=== PATIENT | female | born 1945 | race Caucasian/White ===

== ENCOUNTER 2019-07-21 18:28 | Inpatient (IN) | payer MEDICARE, BC ==
--- NOTE | 2019-07-21 19:57 | PDOC.FPRHP ---
- History of Present Illness Chief Complaint: sinus congestion, weakness History of Present Illness: 73 yo comes in w/ c/c of feeling weak and 2 weeks sinus congesiton. Pt been having 2 week history of nasal congestion and sinus pressure. Reports having some SOB. Denies productive or dry cough. Pt states having post nasal drip in her throat. Denies any chest pain. Pt reports swelling in feet. Pt always sleeps with head elevated. Pt reports getting more tired over the last 2 weeks. Son reports when she came to visit him a week ago she was very sleepy and more tired than usual. Pt dx with HTN at age 18 but states at recent physical they took her off her BP medication 10 years ago. ED Course: EKG: A-Fib w/ RVR CXR: Cardiomegaly w/ Diffuse Lower Lung Infiltrates - Allergies/Adverse Reactions Allergies Allergy/AdvReac Type Severity Reaction Status Date / Time Penicillins Allergy Verified 07/21/19 21:45 - Home Medications Medication Instructions Recorded Confirmed Type Multivit-Min36/Iron/Folic Acid 1 tablet PO DAILY PRN 07/21/19 07/21/19 History [Geritol Complete] Mv-Min/Iron/Folic/Calcium/Vitk 1 each PO DAILY 07/21/19 07/21/19 History [Women's Daily Formula Tablet] Comments: Not on any medications - History PMHx: HTN PSHx: Appendectomy FHx: Sister- Cancer, Mother- Enlarged heart, Father- Lung cancer, smoker Social: Occasional beer drinker, Smokes 6-10 cigarettes a day. Smoking since age 32. Denies any illicit drug use. - Review of Systems General: reports: weight/appetite/sleep changes, fatigue. denies: fever/chills Eyes: denies: eye pain, vision changes ENT: reports: nasal congestion, rhinorrhea Respiratory: reports: congestion, shortness of breath, exercise intolerance. denies: cough Cardiovascular: reports: edema. denies: chest pain, palpitation, paroxysmal nocturnal dyspnea, orthopnea Gastrointestinal: reports: nausea. denies: vomiting, diarrhea, constipation, abdominal pain, GI bleeding Genitourinary: denies: incontinence, dysuria, polyuria Skin: denies: rashes, lesions Musculoskeletal: reports: arthritis/arthralgias. denies: pain, tenderness, stiffness, swelling Neurological: reports: weakness, other (headaches past 2 weeks over left eye, sinus pressure. Reports ringing ears. Reports feeling pressure in ears.). denies: numbness Psychological: denies: anxiety, depression - Vital signs BP: [88/73] HR: [129] RR: [] Tmax: [98.1] Pox: []% on [] Wt: [] - Physical Exam Constitutional: NAD, awake, alert and oriented, well developed HEENT: normocephalic and atraumatic, PERRLA, EOMI, conjunctiva clear, no scleral icterus, grossly normal vision, normal nasal mucosa, MMM, oropharynx clear, other (Poor dentition. Poor hearing.) Neck: supple, FROM, trachea midline, no LAD, other (JVD appreciated to the Angle of the Mandible) Chest: no-tender to palpation, no lesions Heart: normal S1/S2, no murmurs/rubs/gallops, pulses present, other ( Irregularly Irregular Rhythm w/ +1 Pitting Edema to the Knee, Bilaterally) Lungs: CTAB, no respiratory distress, good air movement, no rales/rhonchi, no wheezing, no retractions Abdomen: soft, non-tender, bowel sounds present, no masses/distention, no hernias Musculoskeletal: normal structure, ROM grossly normal Neurological: no focal deficit Skin: no rash/lesions, no jaundice Heme/Lymphatic: no unusual bruising or bleeding, no purpura Psychiatric: normal mood and affect, good judgment and insight, intact recent and remote memory FMR H&P: Results - Labs Result Diagrams: 07/27/19 04:44 07/27/19 10:18 - EKG Interpretation EKG: A-Fib w/ RVR - Radiology Interpretation Chest x-ray Status: image reviewed by me (Cardiomegaly w/ bilateral infiltrates in the lower lung simon), report reviewed by me FMR H&P: A/P - Problem List (1) A-fib Current Visit: Yes Status: Acute Code(s): I48.91 - UNSPECIFIED ATRIAL FIBRILLATION Qualifiers: Atrial fibrillation type: unspecified Qualified Code(s): I48.91 - Unspecified atrial fibrillation (2) CHF (congestive heart failure) Current Visit: Yes Status: Acute Code(s): I50.9 - HEART FAILURE, UNSPECIFIED Qualifiers: Heart failure type: systolic Heart failure chronicity: unspecified Qualified Code(s): I50.20 - Unspecified systolic (congestive) heart failure (3) HTN (hypertension) Current Visit: Yes Status: Acute Code(s): I10 - ESSENTIAL (PRIMARY) HYPERTENSION - Plan 1. New-Onset A-Fib w/ RVR -Admit to [facility] for medical management -Currently rate controlled w/ Cardizem drip @ 10 ml/hr, Nursing to adjust as required -Anticoagulation Lovenox 70 mg SC twice daily -Inciting factor unclear at this point -Echo: Pending -ProCal: Pending -Consult Cardiology in the AM. -Will trend trops. Check FLP, TSH and A1c. 2. New-Onset CHF -HPI and physical exam consistent w/ classic findings of CHF -BNP: 1096 -Echo: Pending -Lasix 20 mg IV x1 3. Sinusitis -2 week hx of sinus pressure and nasal congestion. Possible illness recent cause for problems above -Hx of smoking. Possibly some underlying COPD. -Started on Levaquin 750 mg. Will continue for now. -CXR showed R. pleural effusion, may be due to fluid vs infiltrate. -Procal pending. 4. RAUL vs CKD -Cr 1.22. Unsure of baseline. At this time will hold off on fluids 2/2 to x-ray findings and edema. Will give 20 of lasix and see if it helps with perfusion. -Trend labs. 5. Hx of HTN -Hasn't been on medication for 10 years. -BP: 88/73 on 07/21 -Continue to monitor 6. Tobacco Abuse Code: Full Diet: NPO after Midnight Activity: Ambulate w/ Assist DVT PPx: SCDs & Therapeutic Lovenox Dispo: Admit to IMCU for medication optimization and rate control. Expected LOS > 48H. FMR H&P: Upper Level - Pertinent history I was present with the technology internship. I scribed the above HPI. I agree with the above document. Edits made above as needed. - Pertinent findings Pt is resting in bed. Does not appear to be in acute distress. HR range from 110's to 130s. Irregular. No murmurs noted Resp: Lungs CTA-B, no crackles or wheezes. Ext: +1 pitting edema in LE bilaterally. - Plan Date/Time: 07/21/191954 I, Mohamud Wray, have evaluated this patient and agree with findings/plan as outlined by technology internship resident. Pertinent changes/additions are listed here. At this time we will admit pt for new onset A.fib w/ RVR. She is currently on Dilt drip and will continue to adjust as needed. We will order echo, trend trops and consult cardiology in the AM. Pt BP a little low ranging 80/60. Will admit to IMCU for close monitoring. CXR showed some fluid overload with LE edema. Will give 20 mg lasix IV and see if helps with pressure support. Pt also has 2 week hx of sinusitis. Will tx with levaquin as pt is a smoker as well. Will tx sx's as needed with loratidine and mucinex. Started on therapeutic lovenox. See above for detailed plan. I made edits above as needed. Addendum - Attending - Attending Attestation Date/Time: 07/21/192011 I personally evaluated the patient and discussed the management with Dr. Irizarry and Dr. Wray I agree with the History, Examination, Assessment and Plan documented above with any addition or exceptions noted below. Place on tele for monitoring. Cards in AM. Continue current treatment. Monitor closely. Trend labs. Sharita
[2019-07-21 20:45] LABS: Troponin I 0.076 ng/mL (< 0.028)
[2019-07-21] MEDS ORDERED: Diltiazem HCl 125 MG, Admixture Fee 1 EACH in Sodium Chloride 0.9% 100 ML IVPB SCH (21:15)
[2019-07-21] MEDS ORDERED: Senokot S 8.6-50 MG TAB PO PRN (21:41)
[2019-07-21] MEDS ORDERED: Ondansetron ODT 4 MG TAB PO PRN (21:41)
[2019-07-21] MEDS ORDERED: Diltiazem 125 MG in Sodium Chloride 0.9% 100 ML IVPB SCH (21:41)
[2019-07-21] MEDS ORDERED: Furosemide 20 MG/2 ML VIAL SLOW IVP SCH (21:41)
[2019-07-21] MEDS ORDERED: Loratadine 10 MG TAB PO PRN (21:41)
[2019-07-21 23:11] LABS: Cardiac Risk 3.1 (Less than 4.5)
[2019-07-21 23:16] LABS: Troponin I 0.083 ng/mL (< 0.028)
[2019-07-21 23:30] LABS: Thyroid Stimulating Hormone 1.3234 uIU/mL (0.35-4.94)
[2019-07-22] MEDS ORDERED: Amiodarone 150 MG, Admixture Fee 1 EACH in Dextrose 5% in Water 100 ML IVPB SCH (00:30)
--- NOTE | 2019-07-22 01:11 | PDOC.EVN ---
Event Note - Event Note Event Note: Around 1:00 was called to pt room that she was reporting feeling more weak and that her BP was ranging 70/40. Pt O2 was also down to low 90% on RA. Pt HR was still ranging from low 100's to 120. The dilt GTT had been at a rate of 10. At this time we stopped the dilt GTT and gave a 250cc bolus. HR remained stable from 100's to 110's. Pt O2 sat improved to 95-100% on 2L. As we monitored and bolus was being administered the BP was starting to rise to 80-90/60. At this time we d/c the dilt drip and will start on an amiodarone drip. Attending NOTE: Agree with documentation above. MAP improved off CCB drip and supplemental IVFs. HR responded as well. Will hold drip. Restart amiodarone if needed to treat RVR due to less affects on blood pressure. ECHO pending. Continue anticoag. Sharita
[2019-07-22 02:08] LABS: Troponin I 0.069 ng/mL (< 0.028)
[2019-07-22] MEDS ORDERED: Sodium Chloride 0.9% 250 ML 250 ML IVPB SCH (03:00)
[2019-07-22] MEDS: Amiodarone 450 MG in Dextrose 5% in Water 250 ML IVPB SCH (03:05)
[2019-07-22] MEDS: Methyl Salicylate/Menthol 85 GM TUBE TOP PRN (03:06)
[2019-07-22 05:55] LABS: #Basophils 0.1 thou/uL (0.0-0.2); #Eosinphils 0.1 thou/uL (0.0-0.7); #Lymphocytes 1.6 thou/uL (1.20-3.40); #Monocytes 0.6 thou/uL (0.11-0.59); #Neutrophils 4.1 thou/uL (1.40-6.50); %Basophils 1.3 % (0.0-1.0); %Eosinophils 1.1 % (0.0-10.0); %Lymphocytes 25.4 % (21.0-51.0); %Monocytes 9.2 % (0.0-10.0); Mean Corpuscular Hemoglobin 31.8 pg (27.0-31.0); Mean Corpuscular Volume 96.5 fL (78.0-98.0); Mean Platelet Volume 7.7 fL (7.4-10.4); Platelet Count 230 thou/uL (130-400); RBC Distribution Width 13.6 % (11.5-14.5); Red Blood Cell (RBC) Count 3.75 mill/uL (4.20-5.40); White Blood Cell (WBC) Count 6.5 thou/uL (4.8-10.8)
[2019-07-22 06:29] LABS: ALT (SGPT) 17 U/L (8-55); AST (SGOT) 21 U/L (5-34); Albumin 3.3 g/dL (3.4-4.8); Alkaline Phosphatase 73 U/L (40-110); Anion Gap 16 mmol/L (10-20); BUN (Urea Nitrogen) 17 mg/dL (9.8-20.1); Bilirubin, Total 0.2 mg/dL (0.2-1.2); Calc. Creatinine Clearance 55 mL/min (70-130); Calcium 8.2 mg/dL (7.8-10.44); Carbon Dioxide 19 mmol/L (23-31); Chloride 103 mmol/L (98-107); Estimated GFR-MDRD 49; Globulin 2.2 g/dL (2.4-3.5); Glucose 95 mg/dL (83-110); Potassium 3.7 mmol/L (3.5-5.1); Protein, Total 5.5 g/dL (6.0-8.3); Sodium 134 mmol/L (136-145)
--- NOTE | 2019-07-22 08:38 | PDOC.FM ---
- Subjective Subjective: Pt remains fatigued today. Since starting cardizem her blood pressures dropped requiring her to be switched to amiodorone. She denied chest pain. Remains with LE edema. - Objective Vital Signs & Weight: Vital Signs (12 hours) Temp Pulse Ox 07/22/19 04:10 98.1 F 07/22/19 00:00 96 07/21/19 23:06 97.3 F L 07/21/19 21:30 95 07/21/19 21:10 98.0 F Weight Weight 73.595 kg Most Recent Monitor Data Heart Rate from ECG 89 NIBP 90/57 NIBP BP-Mean 68 Respiration from ECG 24 SpO2 93 I&O: 07/21/19 07/22/19 07/23/19 06:59 06:59 06:59 Intake Total 819.9 33.3 Output Total 1000 Balance -180.1 33.3 Result Diagrams: 07/22/19 05:39 07/22/19 05:39 Phys Exam - Physical Examination Constitutional: NAD HEENT: PERRLA, moist MMs Neck: no nodes, full ROM Respiratory: no wheezing, no rales, no rhonchi irregular rate and rhythm Gastrointestinal: soft, non-tender, positive bowel sounds Musculoskeletal: pulses present 1+ LE edema Dx/Plan (1) A-fib Code(s): I48.91 - UNSPECIFIED ATRIAL FIBRILLATION Status: Acute (2) CHF (congestive heart failure) Code(s): I50.9 - HEART FAILURE, UNSPECIFIED Status: Acute (3) HTN (hypertension) Code(s): I10 - ESSENTIAL (PRIMARY) HYPERTENSION Status: Acute - Plan Plan: 1. New-Onset A-Fib w/ RVR -Admit to IMCU for medical management -Cardizem discontinued due to low BP's. Switched to amiodorone. -Anticoagulation Lovenox 70 mg SC twice daily -Echo: Pending -ProCal: negative -Consulted Cardiology, appreciate rec's -Will trend trops. Check FLP, TSH and A1c. 2. New-Onset CHF No more lasix at this time as she is not rate controlled. -HPI and physical exam consistent w/ classic findings of CHF -BNP: 1096 -CXR revealed enlarged heart -Echo: Pending 3. Sinusitis -2 week hx of sinus pressure and nasal congestion. Possible illness recent cause for problems above -Hx of smoking. Possibly some underlying COPD. - d/c levequin and start doxycycline. CXR revealed R pleural effusion vs pneumonia. Less likely pneumonia as procal negative but will continue to treat. 4. RAUL vs CKD -Cr 1.22. Unsure of baseline. At this time will hold off on fluids 2/2 to x-ray findings and edema. - Trend labs 5. Hx of HTN -Hasn't been on medication for 10 years. -BP: 88/73 on 07/21 -Continue to monitor 6. Tobacco Abuse Code: Full Diet: NPO after Midnight Activity: Ambulate w/ Assist DVT PPx: SCDs & Therapeutic Lovenox Dispo: Admit to IMCU for medication optimization and rate control. Expected LOS > 48H.
[2019-07-22] MEDS: Enoxaparin Sodium 80 MG/0.8 ML SYRINGE SC SCH ×2 (09:00→21:39)
[2019-07-22] MEDS ORDERED: guaiFENesin/DM ER PO SCH (09:00)
[2019-07-22] MEDS ORDERED: Digoxin 0.5 MG/2 ML AMP SLOW IVP SCH ×3 (09:45→22:00)
[2019-07-22] MEDS ORDERED: Doxycycline 100 MG CAP PO SCH ×2 (10:33→10:45)
--- NOTE | 2019-07-22 11:47 | PRG ---
DATE OF SERVICE: 07/22/2019 Ms. Augustin is a pleasant 73-year-old white female with a history of heavy smoking and hypertension. She presented with new onset heart failure and atrial fibrillation. We already consulted Cardiology. She was started initially on a diltiazem drip, but this dropped her blood pressure. She was switched to an amiodarone drip, and Cardiology has since added digoxin. We will await the recommendations of Cardiology. Her initial troponins are indeterminate in the range of 0.08 to 0.07. Job ID: [id number]
[2019-07-22] MEDS ORDERED: Metoprolol Tartrate 5 MG/5 ML VIAL ONE (12:04)
[2019-07-22] MEDS ORDERED: Metoprolol Tartrate 5 MG/5 ML VIAL IVP PRN (12:27)
--- NOTE | 2019-07-22 13:43 | CON ---
DATE OF CONSULTATION: 07/22/2019 INDICATION FOR CONSULTATION: A 73-year-old female with no previous cardiac history, who presented with atrial fibrillation with rapid ventricular response and congestive heart failure with lower extremity edema and shortness of breath. HISTORY OF PRESENT ILLNESS: This very unfortunate 73-year-old female, who has not been feeling well for the last couple weeks, thought she had a sinus infection, but noticed that she was having more and more difficulty breathing. She also knows she was having lower extremity edema. She presented to the emergency room, was noted to be in atrial fibrillation with rapid ventricular response. Heart rate was more than 150 beats per minute and since that time, she had difficulty controlling the heart rate. She actually has been given the IV diltiazem and had a decrease in the blood pressure. She has now been placed on IV amiodarone and also I believe I have given her one dose of digoxin, also she was began on one dose of Lopressor. The heart rate now is around low 100s. Earlier today, after being on the amiodarone and digoxin, she was still having heart rates in the 130s. She denied any chest pain throughout any of this, but mainly complains of shortness of breath and edema. PAST MEDICAL HISTORY: Significant for a relatively good health. She has had no significant operations or illnesses. She did have some problems with some sinus infections in the past. She has had an appendectomy and she has had a history of hypertension. FAMILY HISTORY: Her brother had myocardial infarctions in his 40s and also smoked. SOCIAL HISTORY: She also smokes. She says she stopped about eight years ago. Otherwise, she smoked for about 40 years up to half a pack a day. ALLERGIES: SHE IS ALLERGIC TO PENICILLIN. MEDICATIONS: Prior to admission included multivitamins. REVIEW OF SYSTEMS: HEENT: She denied any HEENT complaints. She does wear glasses. PULMONARY: She had no significant complaints of shortness of breath or dyspnea until just recently. GI: No nausea, vomiting, or diarrhea. : No complaints. No dysuria, polyuria, or hematuria. MUSCULOSKELETAL: She did complain of some claudication. She says she can walk about a block and her legs become fatigued. NEUROLOGIC: No history of seizures or syncope. She did have some lightheadedness recently associated with her atrial fibrillation with rapid ventricular response. PHYSICAL EXAMINATION: GENERAL: Reveals a well-developed, well-nourished, elderly female, who is somewhat overweight, but otherwise very pleasant. She is alert and not having any significant complaints at this time. VITAL SIGNS: Show a blood pressure 109/72, heart rate is in the one teens to 120s, respiratory rate is about 20 per minute, and O2 saturation 96% to 99%. HEENT: Shows head to be normocephalic and atraumatic. She has a significant bilateral carotid bruits noted. Carotid pulses are somewhat decreased with the upstroke. CHEST: Actually, I do not hear any significant rales, rhonchi, or wheezing. She did have some very mild rales in the bases, otherwise no significant abnormalities were noted. CARDIOVASCULAR: She has a rapid irregular heart rate. I do not hear any gross murmurs at this time. ABDOMEN: Soft and nontender. Positive bowel sounds are present. EXTREMITIES: Show 2+ lower extremity edema. I cannot palpate popliteal or pedal pulses. The patient is presently sitting up in the chair. SKIN: Warm and dry. NEUROLOGIC: There were no gross focal motor deficits noted. LABORATORY DATA: Shows a hemoglobin of 12.0, WBC of 6.5, and platelet count was 230,000. Sodium was 134, potassium 3.7, BUN 17, and creatinine 1.07. Her troponin I was originally on admission was 0.76, increased up to 0.083, it is now decreased back down to 0.69. I suspect this is due to the atrial fibrillation with rapid ventricular response. Her LDL was only 65 and she is on no cholesterol medications. Triglyceride was 58. Her TSH was 1.3. EKG shows an atrial fibrillation with decreased R-wave progression in V1 through V3, but no acute ST-segment changes. Some nonspecific changes were noted, but no other significant ST-segment changes were noted on the EKG. IMPRESSION AND PLAN: 1. Elderly female with a long history of tobacco abuse and some history of hypertension in the past, but does not appear to have hypertension at this time, who is now presented with upper respiratory tract infection probably, who has developed atrial fibrillation with rapid ventricular response. Most likely, she developed this two to three weeks ago or even earlier since she noticed the shortness of breath and lower extremity edema. We will continue to control the heart rate. I will obtain an echocardiogram for evaluation of the left atrial size and also the left ventricular systolic function. Since, she has been in atrial fibrillation for quite some time, we will need to anticoagulate her and then proceed with possible cardioversion or ablation as indicated. If we cannot control the heart rate, she may need to undergo further atrioventricular junction ablation and a pacemaker insertion if indicated. 2. Abnormal cardiac enzymes, which most likely indicate a type 2 myocardial infarction due to the demand ischemia associated with the atrial fibrillation. 3. Tobacco abuse. I strongly encouraged her to stop smoking altogether since she has not smoked for the last eight days. Hopefully, she will not resume. 4. Hypertension, which is under excellent control at this time. It may be also due to the hypertension medications she was given. As far as atrial fibrillation is concerned, her TSH was normal. She will need to have further evaluation. Once we evaluate the echocardiogram, eventually will need to undergo an echocardiogram or she will need to undergo stress testing or a cardiac catheterization to rule out evidence of some underlying coronary artery disease. 5. Bilateral carotid bruits. These sounds pretty significant. She will need to undergo a carotid Doppler evaluation to determine whether or not she has severe stenosis. 6. Peripheral vascular disease. I cannot palpate pedal pulses. She does have evidence by history and also by examination of peripheral vascular disease with claudication. I can evaluate this obviously as an outpatient. At this time, the most important objective is to control the heart rate. She is on the IV amiodarone as well, has been given IV digoxin. We will continue to load her with digoxin to control the heart rate. We will also give a low dose of beta ajay to see if this will also improve the heart rate and then, further recommendations will depend on the results of the echocardiogram. Job ID: [id number]
[2019-07-22] MEDS ORDERED: Furosemide 20 MG/2 ML VIAL SLOW IVP SCH (14:00)
--- NOTE | 2019-07-22 16:35 | CON ---
DATE OF CONSULTATION: 07/22/2019 SERVICE: Pulmonary Medicine. REASON FOR CONSULTATION: [facility] patient. HISTORY OF PRESENT ILLNESS: The patient is a very pleasant 73-year-old white female with past medical history significant for essentially nothing. She was in her usual state of health until about 2 weeks ago. She started having increasing work of breathing and overwhelming fatigue. She started having increasing nasal congestion in the face and presented to her primary care physician. This was primarily because of the head congestion. That being said, when she got there, her oxygen saturations were marginal, and her heart rate was fast and irregular. She was subsequently transitioned to the emergency department. She was discovered to be in atrial fibrillation with rapid rate. She has not seen a physician in over 10 years. She did not have any fevers, chills, cough, sputum production, nausea, vomiting, or diarrhea. She had a little bit of constipation. She did not have any dysuria, abdominal discomfort, hot red or swollen joints, or arthralgias. She did notice increasing lower extremity swelling. PAST MEDICAL HISTORY: 1. Atrial fibrillation, new onset. 2. Hypertension. PAST SURGICAL HISTORY: Appendectomy. FAMILY HISTORY: Noncontributory. SOCIAL HISTORY: She drinks beer from time to time. She smokes half a pack on a daily basis and has a greater than 30 pack-year history of smoking. She denies any street drugs. She has no exposure to chemicals, dust, asbestos, or tuberculosis. ALLERGIES: PENICILLIN. MEDICATIONS: List of her inpatient medications was reviewed. No specific updates were made at this time. REVIEW OF SYSTEMS: General; head, ears, eyes, nose, throat; cardiovascular; respiratory; GI; ; musculoskeletal; neurologic; and skin are negative except as mentioned in the HPI. PHYSICAL EXAMINATION: VITAL SIGNS: Afebrile, pulse 107, blood pressure 91/69, respirations 20, and saturation 93% currently on room air. GENERAL: The patient is awake and alert, in no apparent distress. LUNGS: Excellent air entry. No prolonged expiratory phase or wheezing is appreciated. HEART: Normal rate and regular. ABDOMEN: Soft, nontender, and nondistended. Bowel sounds are positive. MUSCULOSKELETAL: No cyanosis or clubbing. There is 2+ pitting in the bilateral lower extremities. NEUROLOGIC: Grossly nonfocal. LABORATORY DATA: WBC 6.5, hemoglobin 12.0, platelets 230,000. Creatinine 1.09, improving. We have no baseline for her. Liver function studies are unremarkable. Troponin is downtrending. Procalcitonin is negative, TSH is normal. IMAGING: Chest x-ray demonstrates no acute cardiopulmonary abnormality. ASSESSMENT: 1. Acute hypoxic respiratory failure, resolved. 2. Atrial fibrillation with a rapid rate, currently rate controlled. 3. Right-sided pleural effusion. 4. Acute on chronic heart failure, suspect diastolic, echo pending. DISCUSSION AND PLAN: At this point, the patient is stable for transition out of the ICU to the telemetry unit. We can back off on diuretics to once daily and give an additional dose in the afternoon based on response. When she leaves the ICU, she will have no further requirements for inpatient Pulmonary or Critical Care opinion, and I will sign off. Please call with additional questions or concerns through time. 70 minutes have been devoted to this patient in various activities. I personally reviewed all imaging studies and laboratory data noted within this document. For fifty percent of this time, I was interacting with the patient at the bedside or coordinating care with the care team. For the remainder of the time I was immediately available to the patient in the hospital unit. Job ID: [id number] MTDD
--- NOTE | 2019-07-22 16:48 | ULT ---
BILATERAL CAROTID DUPLEX ULTRASOUND: HISTORY: Bilateral carotid bruits TECHNIQUE: Grayscale, color-flow and spectral Doppler ultrasound imaging of the extracranial carotid artery syst ems was performed bilaterally. FINDINGS: There is plaque formation bilaterally. The peak systolic velocity in the right ICA measures 194 cm/s with an end-diastolic velocity of 47 cm /s and a systolic ratio of 1.97. The peak systolic velocity in the left ICA measures 49 cm/s with an end-diastolic velocity of 11 cm/s and a systolic ratio of 0.78. Flow in both vertebral arteries remains antegrade. IMPRESSION: Moderate (50-69%) stenosis of the right ICA
[2019-07-22] MEDS: Doxycycline 100 MG CAP PO SCH (21:39)
[2019-07-23] MEDS: Amiodarone 450 MG in Dextrose 5% in Water 250 ML IVPB SCH (02:32)
--- NOTE | 2019-07-23 05:47 | PDOC.FM ---
- Subjective Subjective: Pt has continued edema. Denies SOB. Her pressures dropped over night so amiodarone d/c. She continued with dig IV. Pressures remained stable after amio d/c. - Objective Vital Signs & Weight: Vital Signs (12 hours) Temp Pulse Pulse Ox 07/23/19 04:12 96 07/23/19 03:56 97.0 F L 07/22/19 23:39 97.3 F L 07/22/19 21:39 100 07/22/19 20:00 94 L 07/22/19 19:55 98.2 F 07/22/19 18:20 129 H Weight Weight 73.595 kg Most Recent Monitor Data Heart Rate from ECG 75 NIBP 83/56 NIBP BP-Mean 65 Respiration from ECG 22 SpO2 89 I&O: 07/21/19 07/22/19 07/23/19 06:59 06:59 06:59 Intake Total 819.9 1153.3 Output Total 1000 1400 Balance -180.1 -246.7 Result Diagrams: 07/23/19 06:00 07/23/19 06:01 Phys Exam - Physical Examination Constitutional: NAD Respiratory: no wheezing, no rhonchi RLL rales Cardiovascular: no significant murmur, no rub Irregular rhythm, regular rate Gastrointestinal: soft, non-tender, no distention 1+ pitting edema Neurological: non-focal, moves all 4 limbs Dx/Plan (1) A-fib Code(s): I48.91 - UNSPECIFIED ATRIAL FIBRILLATION Status: Acute (2) CHF (congestive heart failure) Code(s): I50.9 - HEART FAILURE, UNSPECIFIED Status: Acute (3) HTN (hypertension) Code(s): I10 - ESSENTIAL (PRIMARY) HYPERTENSION Status: Acute (4) RAUL (acute kidney injury) Code(s): N17.9 - ACUTE KIDNEY FAILURE, UNSPECIFIED Status: Acute (5) Chronic kidney disease Code(s): N18.9 - CHRONIC KIDNEY DISEASE, UNSPECIFIED Status: Acute (6) Tobacco abuse Code(s): Z72.0 - TOBACCO USE Status: Acute - Plan Plan: 1. New-Onset A-Fib w/ RVR - Pt remains in the IMCU. She initially was started on cardizem but due to low blood pressures she was switched to amiodarone which was stopped overnight due to low BP's. Yesterday Dr. Quinones loaded pt with digoxin on 07/22/19. Echo revealed restrictive filling pattern w/ an EF of 15-20%. At this time pt is rate controlled but BP's are low. She will remain IMCU at this time as bp's need to be monitored as she is duiresed of fluids. She will not go for a cath until her heart failure is better controlled. -Anticoagulation Lovenox 70 mg SC twice daily -ProCal: negative -Consulted Cardiology, appreciate rec's 2. New-Onset CHF Lasix daily per Dr. Hills; appreciate rec's Echo revealed EF 15-20% -HPI and physical exam consistent w/ classic findings of CHF -BNP: 1096 3. Sinusitis -2 week hx of sinus pressure and nasal congestion. Possible illness recent cause for problems above -Hx of smoking. Possibly some underlying COPD. - d/c levequin and start doxycycline. CXR revealed R pleural effusion vs pneumonia. Less likely pneumonia as procal negative but will continue to treat. 4. RAUL vs CKD -Cr 1.22 --> 1.17. Unsure of baseline. At this time will hold off on fluids 2/2 to x-ray findings and edema. - Trend labs 5. Hx of HTN -Hasn't been on medication for 10 years. Remains hypotensive -Continue to monitor 6. Tobacco Abuse 7. R ICA Stenosis - started statin therapy; consider aspirin 81 mg Code: Full Diet: NPO after Midnight Activity: Ambulate w/ Assist DVT PPx: SCDs & Therapeutic Lovenox Dispo: Admit to IMCU for medication optimization and rate control. Expected LOS > 48H.
[2019-07-23] MEDS ORDERED: Furosemide 20 MG/2 ML VIAL SLOW IVP SCH (06:00)
[2019-07-23 06:32] LABS: #Basophils 0.1 thou/uL (0.0-0.2); #Eosinphils 0.1 thou/uL (0.0-0.7); #Lymphocytes 1.7 thou/uL (1.20-3.40); #Monocytes 0.6 thou/uL (0.11-0.59); #Neutrophils 4.4 thou/uL (1.40-6.50); %Basophils 1.6 % (0.0-1.0); %Neutrophils 63.3 % (42.0-75.0); Hemoglobin 13.1 g/dL (12.0-16.0); Mean Corpuscular HGB CONC 32.6 g/dL (32.0-36.0); Mean Corpuscular Hemoglobin 31.6 pg (27.0-31.0); Mean Platelet Volume 7.8 fL (7.4-10.4); Platelet Count 230 thou/uL (130-400); RBC Distribution Width 13.9 % (11.5-14.5); Red Blood Cell (RBC) Count 4.15 mill/uL (4.20-5.40)
[2019-07-23 06:51] LABS: Anion Gap 13 mmol/L (10-20); BUN (Urea Nitrogen) 17 mg/dL (9.8-20.1); Calc. Creatinine Clearance 51 mL/min (70-130); Calcium 8.6 mg/dL (7.8-10.44); Carbon Dioxide 25 mmol/L (23-31); Chloride 104 mmol/L (98-107); Estimated GFR-MDRD 46; Glucose 67 mg/dL (83-110); Potassium 3.6 mmol/L (3.5-5.1); Sodium 138 mmol/L (136-145)
[2019-07-23] MEDS ORDERED: Potassium Chloride 20 MEQ TAB PO SCH (08:00)
[2019-07-23] MEDS: Enoxaparin Sodium 80 MG/0.8 ML SYRINGE SC SCH ×2 (09:15→20:28)
[2019-07-23] MEDS: Doxycycline 100 MG CAP PO SCH ×2 (09:15→20:29)
[2019-07-23] MEDS ORDERED: Furosemide 20 MG/2 ML VIAL ONE (09:21)
[2019-07-23] MEDS ORDERED: Digoxin 0.5 MG/2 ML AMP ONE (09:21)
[2019-07-23] MEDS: Digoxin 0.5 MG/2 ML AMP SLOW IVP SCH (09:23)
[2019-07-23] MEDS ORDERED: Polyethylene Glycol 3350 17 GM Packet PO SCH (10:15)
--- NOTE | 2019-07-23 10:32 | PRG ---
DATE OF SERVICE: 07/23/2019 SERVICE: Pulmonary Medicine. INTERVAL HISTORY: The patient is doing really well from respiratory standpoint. She is breathing comfortably. She is coughing up a little bit of slimy phlegm. Otherwise, there has been no interval change to her condition. She denies any significant chest discomfort. She indicates that her lower extremity swelling has improved. PHYSICAL EXAMINATION: VITAL SIGNS: Afebrile, pulse 96, blood pressure 105/72, respirations 19, and saturation 92%, currently on room air. GENERAL: The patient is awake and alert, in no apparent distress. LUNGS: Very good air entry. There is not much of a prolonged expiratory phase. Crackles are present bilaterally. There is minimal wheezing present, but it is coarser suggestive of large airways. HEART: Normal rate, regular. ABDOMEN: Soft, nontender, and nondistended. Bowel sounds are positive. MUSCULOSKELETAL: No cyanosis or clubbing. There is 2+ pitting in the bilateral lower extremities. NEUROLOGIC: Grossly nonfocal. LABORATORY DATA: WBC 7.0, hemoglobin 13.1, and platelets 230,000. Basic metabolic profile is otherwise unremarkable except for potassium of 3.6 and uptrending creatinine of 1.17. IMAGING STUDIES: Echocardiogram demonstrates 15% to 20% ejection fraction. IVC is dilated. ASSESSMENT: 1. Acute hypoxic respiratory failure, resolved. 2. Atrial fibrillation with rapid ventricular rate, currently rate control. 3. Acute systolic heart failure (EF 10-15%). 4. Right-sided pleural effusion. DISCUSSION AND PLAN: At this point, the patient is doing fairly well from respiratory standpoint. We will give her some ipratropium, but I believe that most of her little wheezes is from fluid overload. Additionally, she does not endorse difficulty breathing, so steroids will not be started. We will continue to diurese her until she returns to euvolemia. I will give her a dose of MiraLAX per her request to prevent constipation while she is here. Dr. Quinones would like to leave her in the ICU until she diuresis without the use of an inotropic agent. We will continue to follow in this location. Job ID: [id number] MTDD
--- NOTE | 2019-07-23 12:10 | PRG ---
DATE OF SERVICE: 07/23/2019 Ms. Augustni is feeling somewhat better this morning. Still in atrial fibrillation with RVR and still short of breath. Her echo did demonstrate reduced ejection fraction and heart failure with an EF of 15% to 20%. I believe we should go ahead and initiate treatment with ACEs and beta blockers pending further recommendations of Cardiology. It is likely she will need a heart catheterization to assess for coronary artery disease. We must use these medications with caution given that she was initially slightly hypotensive. Job ID: [id number]
[2019-07-23] MEDS: Ondansetron PF 4 MG/2 ML Vial IVP PRN ×2 (13:57→21:54)
[2019-07-23] MEDS ORDERED: DOBUTamine 500 mg/250 ml 250 ML IVPB SCH (14:45)
[2019-07-23] MEDS: Furosemide 40 MG/4 ML VIAL SLOW IVP SCH (16:29)
[2019-07-23] MEDS: Atorvastatin Calcium 40 MG TAB PO SCH (20:29)
[2019-07-24] MEDS: Acetaminophen 325 MG TAB PO PRN ×3 (03:26→20:30)
[2019-07-24 05:17] LABS: #Lymphocytes 0.3 thou/uL (1.20-3.40); #Monocytes 0.5 thou/uL (0.11-0.59); #Neutrophils 5.5 thou/uL (1.40-6.50); %Basophils 0.6 % (0.0-1.0); %Eosinophils 0.1 % (0.0-10.0); %Lymphocytes 4.3 % (21.0-51.0); %Monocytes 7.9 % (0.0-10.0); %Neutrophils 87.1 % (42.0-75.0); Hemoglobin 12.6 g/dL (12.0-16.0); Mean Corpuscular HGB CONC 32.5 g/dL (32.0-36.0); Mean Corpuscular Hemoglobin 31.1 pg (27.0-31.0); Mean Corpuscular Volume 95.7 fL (78.0-98.0); Mean Platelet Volume 7.5 fL (7.4-10.4); Platelet Count 205 thou/uL (130-400); RBC Distribution Width 13.7 % (11.5-14.5); Red Blood Cell (RBC) Count 4.05 mill/uL (4.20-5.40); White Blood Cell (WBC) Count 6.3 thou/uL (4.8-10.8)
--- NOTE | 2019-07-24 05:37 | PDOC.FM ---
- Subjective Subjective: Pt remains fatigued today. She denies SOB. She believes her LE edema has improved. - Objective Vital Signs & Weight: Vital Signs (12 hours) Temp Pulse Ox 07/24/19 03:39 98.2 F 07/24/19 00:00 98.6 F 07/23/19 20:00 98.4 F 94 L Weight Weight 70.534 kg Most Recent Monitor Data Heart Rate from ECG 88 NIBP 97/67 NIBP BP-Mean 77 Respiration from ECG 24 SpO2 92 I&O: 07/22/19 07/23/19 07/24/19 06:59 06:59 06:59 Intake Total 819.9 1303.3 880 Output Total 1000 1400 4700 Balance -180.1 -96.7 -3820 Result Diagrams: 07/24/19 05:07 07/24/19 05:07 Dx/Plan (1) A-fib Code(s): I48.91 - UNSPECIFIED ATRIAL FIBRILLATION Status: Acute (2) CHF (congestive heart failure) Code(s): I50.9 - HEART FAILURE, UNSPECIFIED Status: Acute (3) HTN (hypertension) Code(s): I10 - ESSENTIAL (PRIMARY) HYPERTENSION Status: Acute (4) RAUL (acute kidney injury) Code(s): N17.9 - ACUTE KIDNEY FAILURE, UNSPECIFIED Status: Acute (5) Chronic kidney disease Code(s): N18.9 - CHRONIC KIDNEY DISEASE, UNSPECIFIED Status: Acute (6) Tobacco abuse Code(s): Z72.0 - TOBACCO USE Status: Acute - Plan Plan: 1. New-Onset A-Fib w/ RVR - Pt remains in the IMCU on 07/24/19. She initially was started on cardizem but due to low blood pressures she was switched to amiodarone which was stopped due to low BP's. Dr. Quinones loaded pt with digoxin on 07/22/19. Echo revealed restrictive filling pattern w/ an EF of 15-20%. At this time pt is rate controlled but BP's are low, 90's/60's. She will remain IMCU at this time as bp' s need to be monitored as she is diuresed of fluids and may need dobutamine , per Dr. Quinones. She will not go for a cath until her heart failure is better controlled. -Anticoagulation Lovenox 70 mg SC twice daily -ProCal: negative -Consulted Cardiology, appreciate rec's 2. New-Onset CHF Lasix daily per Dr. Hills; appreciate rec's Echo revealed EF 15-20% -HPI and physical exam consistent w/ classic findings of CHF -BNP: 1096 - Statin therapy began as pt likely has ischemic cardiomyopathy 3. Sinusitis -2 week hx of sinus pressure and nasal congestion. Possible illness recent cause for problems above -Hx of smoking. Possibly some underlying COPD. - d/c levequin and start doxycycline. CXR revealed R pleural effusion vs pneumonia. Less likely pneumonia as procal negative but will continue to treat. 4. RAUL vs CKD -Cr 1.22 --> 1.17. Unsure of baseline. At this time will hold off on fluids 2/2 to x-ray findings and edema. - Trend labs 5. Hx of HTN -Hasn't been on medication for 10 years. Remains hypotensive -Continue to monitor 6. Tobacco Abuse 7. R ICA Stenosis - started statin therapy; consider aspirin 81 mg 8. Hypokalemia - replete; replete BMP this afternoon Code: Full Diet: NPO after Midnight Activity: Ambulate w/ Assist DVT PPx: SCDs & Therapeutic Lovenox Dispo: Admit to IMCU for medication optimization and rate control. Expected LOS > 48H. Addendum - Attending - Attending Attestation Date/Time: 07/24/19 3316 I personally evaluated the patient and discussed the management with Dr. Hill. I agree with the History, Examination, Assessment and Plan documented above with any addition or exceptions noted below. Patient doing well and denies concerns this morning. Feeling improved. Her rate is more controlled. Echo shows severely depressed EF. Patient started on Dobutamine by cardiology but not currently infusing. She is diuresing well. Renal function improved. Await further cardiology recs. She is on anticoagulation.
[2019-07-24 05:43] LABS: Anion Gap 16 mmol/L (10-20); BUN (Urea Nitrogen) 12 mg/dL (9.8-20.1); Calc. Creatinine Clearance 65 mL/min (70-130); Calcium 8.3 mg/dL (7.8-10.44); Carbon Dioxide 25 mmol/L (23-31); Chloride 98 mmol/L (98-107); Estimated GFR-MDRD 63; Glucose 72 mg/dL (83-110); Potassium 3.2 mmol/L (3.5-5.1); Sodium 136 mmol/L (136-145)
[2019-07-24] MEDS ORDERED: Ibuprofen 200 MG TAB PO SCH (06:00)
[2019-07-24] MEDS: Furosemide 40 MG/4 ML VIAL SLOW IVP SCH ×2 (06:13→14:51)
[2019-07-24] MEDS: Polyethylene Glycol 3350 17 GM Packet PO SCH (08:47)
[2019-07-24] MEDS: Enoxaparin Sodium 80 MG/0.8 ML SYRINGE SC SCH ×2 (08:47→20:27)
[2019-07-24] MEDS: Doxycycline 100 MG CAP PO SCH ×2 (08:47→20:27)
[2019-07-24] MEDS ORDERED: Digoxin 0.5 MG/2 ML AMP ONE (08:49)
[2019-07-24] MEDS: Digoxin 0.5 MG/2 ML AMP SLOW IVP SCH (08:50)
--- NOTE | 2019-07-24 11:27 | PRG ---
DATE OF SERVICE: 07/24/2019 SUBJECTIVE: A 73-year-old female who appears to be less short of breath and still coughing. Sputum is clear. OBJECTIVE: VITAL SIGNS: Pulse 100, temperature 98, blood pressure 94/79, respiratory rate 18. CHEST: Minimal rhonchi. CARDIAC: Normal S1 and S2. ABDOMEN: No masses. LABORATORY DATA: Unremarkable. ASSESSMENT: Congestive heart failure, atrial fibrillation, chronic obstructive pulmonary disease, bronchitis, tobacco abuse. PLAN: She is on amiodarone drip, supportive care, and empiric antibiotics. We will follow. Job ID: [id number]
[2019-07-24] MEDS ORDERED: Potassium Chloride 20 MEQ in Premix Bag 1 BAG IVPB SCH (13:45)
--- NOTE | 2019-07-24 14:05 | EKG ---
Test Reason : Blood Pressure : / mmHG Vent. Rate : 121 BPM Atrial Rate : 105 BPM P-R Int : 000 ms QRS Dur : 094 ms QT Int : 360 ms P-R-T Axes : 000 063 171 degrees QTc Int : 511 ms Atrial fibrillation with rapid ventricular response Possible Anterior infarct , age undetermined Abnormal ECG Confirmed by GABBI WOOTEN ([id number]), assistant editor REHANA GODOY ([id number]) on 07/24/2019 2:05:11 PM Referred By: Confirmed By:GABBI WOOTEN
[2019-07-24 14:39] LABS: Anion Gap 19 mmol/L (10-20); BUN (Urea Nitrogen) 13 mg/dL (9.8-20.1); Calc. Creatinine Clearance 54 mL/min (70-130); Carbon Dioxide 28 mmol/L (23-31); Chloride 95 mmol/L (98-107); Estimated GFR-MDRD 52; Glucose 76 mg/dL (83-110); Potassium 3.5 mmol/L (3.5-5.1); Sodium 138 mmol/L (136-145)
[2019-07-24] MEDS: Ondansetron PF 4 MG/2 ML Vial IVP PRN (14:51)
[2019-07-24] MEDS: Atorvastatin Calcium 40 MG TAB PO SCH (20:27)
[2019-07-25] MEDS ORDERED: Ibuprofen 200 MG TAB PO SCH (02:00)
[2019-07-25 04:28] LABS: #Lymphocytes 0.3 thou/uL (1.20-3.40); #Monocytes 0.6 thou/uL (0.11-0.59); #Neutrophils 5.8 thou/uL (1.40-6.50); %Basophils 0.2 % (0.0-1.0); %Eosinophils 0.1 % (0.0-10.0); %Lymphocytes 4.9 % (21.0-51.0); %Monocytes 8.4 % (0.0-10.0); %Neutrophils 86.4 % (42.0-75.0); Hemoglobin 13.1 g/dL (12.0-16.0); Mean Corpuscular HGB CONC 32.3 g/dL (32.0-36.0); Mean Corpuscular Hemoglobin 31.1 pg (27.0-31.0); Mean Corpuscular Volume 96.1 fL (78.0-98.0); Mean Platelet Volume 7.3 fL (7.4-10.4); Platelet Count 181 thou/uL (130-400); RBC Distribution Width 13.8 % (11.5-14.5); Red Blood Cell (RBC) Count 4.22 mill/uL (4.20-5.40); White Blood Cell (WBC) Count 6.7 thou/uL (4.8-10.8)
[2019-07-25 04:52] LABS: Anion Gap 11 mmol/L (10-20); BUN (Urea Nitrogen) 9 mg/dL (9.8-20.1); Calc. Creatinine Clearance 72 mL/min (70-130); Calcium 8.3 mg/dL (7.8-10.44); Carbon Dioxide 34 mmol/L (23-31); Chloride 94 mmol/L (98-107); Estimated GFR-MDRD 72; Glucose 86 mg/dL (83-110); Potassium 3.2 mmol/L (3.5-5.1); Sodium 136 mmol/L (136-145)
[2019-07-25 04:53] LABS: Digoxin 1.75 ng/mL (0.8-2.0)
--- NOTE | 2019-07-25 05:41 | PDOC.FM ---
- Subjective Subjective: Pt complains of continued constipation today not alleviated with PO meds. She also has L sided sharp pain radiating behind shoulder blade to L ear. She does not know when this started but she woke with it. - Objective Vital Signs & Weight: Vital Signs (12 hours) Temp Pulse Ox 07/25/19 03:47 98.3 F 07/25/19 00:00 97.6 F 07/24/19 20:00 93 L 07/24/19 19:45 99.0 F Weight Weight 69.853 kg Most Recent Monitor Data Heart Rate from ECG 87 NIBP 119/81 NIBP BP-Mean 93 Respiration from ECG 23 SpO2 93 I&O: 07/23/19 07/24/19 07/25/19 06:59 06:59 06:59 Intake Total 1303.3 1250 1100 Output Total 1400 5100 2100 Balance -96.7 -3850 -1000 Result Diagrams: 07/25/19 04:09 07/25/19 04:09 Phys Exam - Physical Examination Constitutional: NAD Crackles on R side, decreased air movement bilaterally but pt hunched Cardiovascular: RRR, no significant murmur mild distention, mild tenderness, positive bowel sounds Musculoskeletal: pulses present trace edema Dx/Plan (1) A-fib Code(s): I48.91 - UNSPECIFIED ATRIAL FIBRILLATION Status: Acute (2) CHF (congestive heart failure) Code(s): I50.9 - HEART FAILURE, UNSPECIFIED Status: Acute (3) HTN (hypertension) Code(s): I10 - ESSENTIAL (PRIMARY) HYPERTENSION Status: Acute (4) RAUL (acute kidney injury) Code(s): N17.9 - ACUTE KIDNEY FAILURE, UNSPECIFIED Status: Acute (5) Chronic kidney disease Code(s): N18.9 - CHRONIC KIDNEY DISEASE, UNSPECIFIED Status: Acute (6) Tobacco abuse Code(s): Z72.0 - TOBACCO USE Status: Acute - Plan Plan: 1. New-Onset A-Fib w/ RVR - Pt remains in the IMCU on 07/24/19. She initially was started on cardizem but due to low blood pressures she was switched to amiodarone which was stopped due to low BP's. Dr. Quinones loaded pt with digoxin on 07/22/19. Echo revealed restrictive filling pattern w/ an EF of 15-20%. At this time pt is rate controlled with normotensive BP's this morning. She will remain IMCU at this time as bp's need to be monitored as she is diuresed of fluids and may need dobutamine , per Dr. Quinones. BNP 2721. Dig level 1.75. She will not go for a cath until her heart failure is better controlled. -Anticoagulation Lovenox 70 mg SC twice daily -ProCal: negative -Consulted Cardiology, appreciate rec's 2. New-Onset CHF Lasix daily per Dr. Hills; appreciate rec's Echo revealed EF 15-20% -HPI and physical exam consistent w/ classic findings of CHF -BNP: 1096 --> 2722 - Statin therapy began as pt likely has ischemic cardiomyopathy 3. Sinusitis -2 week hx of sinus pressure and nasal congestion. Possible illness recent cause for problems above -Hx of smoking. Possibly some underlying COPD. - d/c levequin and start doxycycline. CXR revealed R pleural effusion vs pneumonia. Less likely pneumonia as procal negative but will continue to treat for a total of 7 days. 4. RAUL -Cr 1.22 --> 1.17 --> 0.79. Improving with diuresing. At this time will hold off on fluids 2/2 to x-ray findings and edema. - Trend labs 5. Hx of HTN -Hasn't been on medication for 10 years. Normotensive -Continue to monitor 6. Tobacco Abuse 7. R ICA Stenosis - started statin therapy; aspirin 81 mg 8. Hypokalemia - replete with IV as needed with decreased PO intake 9. Poor PO Intake - hopefully will resolve with BM, she has not had one in about a week 10. Constipation No BM in about a week. - not alleviated with PO meds. Ordered fleets enema. Code: Full Diet: NPO after Midnight Activity: Ambulate w/ Assist DVT PPx: SCDs & Therapeutic Lovenox Dispo: Admit to IMCU for medication optimization and rate control. Expected LOS > 48H. Addendum - Attending - Attending Attestation Date/Time: 07/25/19 3752 I personally evaluated the patient and discussed the management with Dr. Hill. I agree with the History, Examination, Assessment and Plan documented above with any addition or exceptions noted below. Patient here for new onset Afib and CHF. Continues to be rate controlled. She is being diuresed and has mild contraction alkalosis. Continue to monitor and give Diamox if needed. Cardiology on board. Needs PT/OT for possible rehab versus SNF once stable for discharge.
[2019-07-25] MEDS ORDERED: Potassium Chloride 20 MEQ in Premix Bag 1 BAG IVPB SCH ×3 (06:00→14:00)
[2019-07-25] MEDS: Furosemide 40 MG/4 ML VIAL SLOW IVP SCH ×2 (06:12→16:07)
[2019-07-25] MEDS: Methyl Salicylate/Menthol 85 GM TUBE TOP PRN (06:20)
[2019-07-25] MEDS: Doxycycline 100 MG CAP PO SCH ×2 (08:16→20:44)
[2019-07-25] MEDS: Aspirin 81 mg Enteric Coated Tablet PO SCH (08:16)
[2019-07-25] MEDS: Polyethylene Glycol 3350 17 GM Packet PO SCH (08:16)
[2019-07-25] MEDS: Enoxaparin Sodium 80 MG/0.8 ML SYRINGE SC SCH ×2 (08:17→20:44)
[2019-07-25] MEDS ORDERED: Fleet Enema 133 ML BOT FS SCH (09:30)
--- NOTE | 2019-07-25 11:14 | PRG ---
DATE OF SERVICE: 07/25/2019 SUBJECTIVE: This morning, she says she is feeling somewhat better. Tells me she is less short of breath, less pain. OBJECTIVE: VITAL SIGNS: Saturations are 98% on supplemental oxygen, pulse 130, temperature 98, blood pressure 114/79. CHEST: Decreased breath sounds. No wheezing. CARDIAC: Normal S1 and S2. No gallops. ABDOMEN: No masses. LABORATORY DATA: White count of 6000. Lytes are normal. IMPRESSION: 1. Respiratory failure. 2. Congestive heart failure. 3. Atrial fibrillation. 4. Severe deconditioning. 5. Chronic obstructive pulmonary disease. PLAN: Pulmonary-chung, continue aggressive cardiac care. Empiric antibiotics, supportive care. We will follow. Job ID: [id number]
[2019-07-25] MEDS: Digoxin 0.5 MG/2 ML AMP SLOW IVP SCH (12:21)
[2019-07-25] MEDS ORDERED: Digoxin 0.5 MG/2 ML AMP ONE (12:59)
[2019-07-25] MEDS ORDERED: Digoxin 0.25 MG TAB PO SCH (15:45)
[2019-07-25] MEDS: Acetaminophen 325 MG TAB PO PRN (17:10)
[2019-07-25] MEDS: Atorvastatin Calcium 40 MG TAB PO SCH (20:44)
[2019-07-25] MEDS: Ibuprofen 200 MG TAB PO SCH (20:44)
[2019-07-26 04:12] LABS: #Lymphocytes 0.9 thou/uL (1.20-3.40); #Monocytes 0.4 thou/uL (0.11-0.59); #Neutrophils 2.9 thou/uL (1.40-6.50); %Basophils 1.1 % (0.0-1.0); %Eosinophils 0.3 % (0.0-10.0); %Lymphocytes 21.2 % (21.0-51.0); %Monocytes 9.5 % (0.0-10.0); %Neutrophils 67.9 % (42.0-75.0); Hemoglobin 13.5 g/dL (12.0-16.0); Mean Corpuscular HGB CONC 32.8 g/dL (32.0-36.0); Mean Corpuscular Hemoglobin 31.5 pg (27.0-31.0); Mean Corpuscular Volume 96.1 fL (78.0-98.0); Mean Platelet Volume 7.8 fL (7.4-10.4); Platelet Count 165 thou/uL (130-400); RBC Distribution Width 13.8 % (11.5-14.5); Red Blood Cell (RBC) Count 4.29 mill/uL (4.20-5.40); White Blood Cell (WBC) Count 4.3 thou/uL (4.8-10.8)
[2019-07-26 04:30] LABS: Anion Gap 15 mmol/L (10-20); BUN (Urea Nitrogen) 13 mg/dL (9.8-20.1); Calc. Creatinine Clearance 68 mL/min (70-130); Calcium 8.4 mg/dL (7.8-10.44); Carbon Dioxide 36 mmol/L (23-31); Chloride 89 mmol/L (98-107); Estimated GFR-MDRD 69; Glucose 78 mg/dL (83-110); Potassium 3.7 mmol/L (3.5-5.1); Sodium 136 mmol/L (136-145)
--- NOTE | 2019-07-26 05:35 | PDOC.FM ---
- Subjective Subjective: Patient up sitting in chair this AM. States that she still is not hungry, only ate a couple bites of oatmeal for breakfast. States she was eating fine before this admission but since being in the hospital feels like her sense of taste and smell has changed and nothing tastes good. She still feels very thirsty and requesting water. Has left hip and leg pain this morning, says has had similar pain in the past on/off for a couple years, usually just takes OTC "Everette Back and Body" and tries to sit on right side to help with pain relief. Patient did have a moderate BM yesterday, now feels less fullness in abdominal area but still feels like she needs to have another BM. - Objective Vital Signs & Weight: Vital Signs (12 hours) Temp Pulse Ox 07/26/19 03:53 98.3 F 07/25/19 23:28 98.5 F 07/25/19 20:00 95 07/25/19 19:27 98.0 F Weight Weight 68.266 kg Most Recent Monitor Data Heart Rate from ECG 67 NIBP 103/68 NIBP BP-Mean 79 Respiration from ECG 18 SpO2 94 I&O: 07/24/19 07/25/19 07/26/19 06:59 06:59 06:59 Intake Total 1250 1360 850 Output Total 5100 2400 1600 Balance -9710 -2550 -750 Result Diagrams: 07/26/19 04:00 07/26/19 04:00 Phys Exam - Physical Examination Constitutional: NAD HEENT: moist MMs, sclera anicteric Neck: no JVD, supple Respiratory: no wheezing, no rhonchi, clear to auscultation bilateral Cardiovascular: no significant murmur, irregular irregular rate and rhythm Gastrointestinal: soft, non-tender, no distention, positive bowel sounds Musculoskeletal: pulses present trace pitting edema in bilateral lower extremities slightly tender to palpation over left hip and lateral thigh Neurological: normal sensation, moves all 4 limbs Psychiatric: normal affect, A&O x 3 Skin: no rash, normal turgor Dx/Plan (1) A-fib Code(s): I48.91 - UNSPECIFIED ATRIAL FIBRILLATION Status: Acute Qualifiers: Atrial fibrillation type: unspecified Qualified Code(s): I48.91 - Unspecified atrial fibrillation (2) RAUL (acute kidney injury) Code(s): N17.9 - ACUTE KIDNEY FAILURE, UNSPECIFIED Status: Acute (3) CHF (congestive heart failure) Code(s): I50.9 - HEART FAILURE, UNSPECIFIED Status: Acute Qualifiers: Heart failure type: systolic Heart failure chronicity: unspecified Qualified Code(s): I50.20 - Unspecified systolic (congestive) heart failure (4) Tobacco abuse Code(s): Z72.0 - TOBACCO USE Status: Acute - Plan Plan: Patient is a 74 yo female who presents with weakness and congestion is admitted for new onset A-Fib with RVR and new onset CHF: 1. New-Onset A-Fib w/ RVR - Pt remains in the IMCU on 07/26/19. She initially was started on cardizem but due to low blood pressures she was switched to amiodarone which was stopped due to low BP's. Dr. Quinones loaded pt with digoxin on 07/22/19. Echo revealed restrictive filling pattern w/ an EF of 15-20%. At this time pt is rate controlled with normotensive BP's this morning. She will remain IMCU at this time as bp's need to be monitored as she is diuresed of fluids and may need dobutamine , per Dr. Quinones. BNP 2721. Dig level 1.75. She will not go for a cath until her heart failure is better controlled. -Anticoagulation Lovenox 70 mg SC twice daily -ProCal: negative -Consulted Cardiology, appreciate rec's -Dr. Adame saw patient over the weekend, states will continue to diurese and monitor digoxin levels, Dr. Quinones to resume seeing patient this AM -patient will need life vest at discharge 2. New-Onset CHF -IV Lasix [address] Hills; appreciate rec's -Echo revealed EF 15-20% -HPI and physical exam consistent w/ classic findings of CHF -BNP: 1096 --> 2722 -Statin therapy began as pt likely has ischemic cardiomyopathy -Heart failure clinic has seen and evaluated patient, per protocol have instructed patient will need follow up with Dr. Quinones within 2 weeks after discharge unless Dr. Quinones desires patient to see HF clinic first, appreciate recs 3. Sinusitis -2 week hx of sinus pressure and nasal congestion. Possible illness recent cause for problems above -Hx of smoking. Possibly some underlying COPD. - d/c levequin and start doxycycline (07/22). -CXR revealed R pleural effusion vs pneumonia. Less likely pneumonia as procal negative but will continue to treat for a total of 7 days. 4. RAUL -Cr 1.22 --> 1.17 --> 0.79. Improving with diuresing. -At this time will hold off on fluids 2/2 to x-ray findings and edema. -Trend AM BMP 5. Hx of HTN -Hasn't been on medication for 10 years. -Normotensive to hypotensive throughout stay -Continue to monitor vitals 6. 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 R ICA Stenosis - started Atorvastatin therapy; aspirin 81 mg 8. Hypokalemia - replete with IV KCl as needed - likely due to decreased PO intake 9. Poor PO Intake - hopefully will resolve with BM 10. Constipation -No BM in about a week. -not alleviated with PO Polyethylene glycol. Ordered fleets enema on 07/25. -Patient had 1 BM @ 1700 on 07/25 -consider ordering another fleets enema, continue PO PEG for now Code: FULL Diet: NPO after Midnight DVT PPx: SCDs & Therapeutic Lovenox Dispo: Stable, admit to IMCU for medication optimization and rate control. Await further recs from Cardiology, appreciate recs. Expected LOS > 48H. Addendum - Attending - Attending Attestation Date/Time: 07/26/19 1189 I personally evaluated the patient and discussed the management with Dr. Gross I agree with the History, Examination, Assessment and Plan documented above with any addition or exceptions noted below. Patient to transition to telemetry Atrial fibrillation with RVR amiadarone on hold continue rate control on BB and digoxin receiving therapeutic lovenox currently will transition to po. Notable HF rEF with EF 15-20% concern ischemic cardiomyopathy appreciate Cardiology recommendations.
[2019-07-26] MEDS: Furosemide 40 MG/4 ML VIAL SLOW IVP SCH ×2 (06:03→13:23)
[2019-07-26] MEDS: Ibuprofen 200 MG TAB PO SCH ×2 (08:58→21:31)
[2019-07-26] MEDS: Aspirin 81 mg Enteric Coated Tablet PO SCH (08:58)
[2019-07-26] MEDS: Enoxaparin Sodium 80 MG/0.8 ML SYRINGE SC SCH ×2 (08:58→21:31)
[2019-07-26] MEDS: Doxycycline 100 MG CAP PO SCH ×2 (08:58→21:31)
[2019-07-26] MEDS: Digoxin 0.25 MG TAB PO SCH (08:58)
[2019-07-26] MEDS: Polyethylene Glycol 3350 17 GM Packet PO SCH (08:58)
--- NOTE | 2019-07-26 09:07 | PDOC.CPN ---
- Subjective Date: 07/26/19 Time: 09:05 Interval history: the pt seen and examined. No overnight events. No cardiac complaints. - Objective Allergies/Adverse Reactions: Allergies Allergy/AdvReac Type Severity Reaction Status Date / Time Penicillins Allergy Verified 07/21/19 21:45 Visit Medications: Current Medications Acetaminophen (Tylenol) 650 mg PO Q4H PRN PRN Reason: Headache/Fever/Mild Pain (1-3) Last Admin: 07/25/19 17:10 Dose: 650 mg Aspirin (Ecotrin) 81 mg PO DAILY [facility] Last Admin: 07/26/19 08:58 Dose: 81 mg Atorvastatin Calcium (Lipitor) 40 mg PO HS [facility] Last Admin: 07/25/19 20:44 Dose: 40 mg Digoxin (Lanoxin) 0.25 mg PO QAM [facility] Last Admin: 07/26/19 08:58 Dose: 0.25 mg Doxycycline Hyclate (Vibramycin) 100 mg PO BID [facility] Stop: 07/27/19 21:01 Last Admin: 07/26/19 08:58 Dose: 100 mg Enoxaparin Sodium (Lovenox) 70 mg SC 0900,2100 [facility] Last Admin: 07/26/19 08:58 Dose: 70 mg Furosemide (Lasix) 40 mg SLOW IVP 0600,1400 [facility] Last Admin: 07/26/19 06:03 Dose: 40 mg Amiodarone HCl 450 mg/ (Dextrose/Water) 259 mls @ 0 mls/hr IVPB INF [facility]; Protocol Last Admin: 07/23/19 02:32 Dose: 259 mls Dobutamine HCl/Dextrose (Dobutamine 500 Mg/250 Ml) 250 mls @ 5.52 mls/hr IVPB INF [facility]; Protocol Ibuprofen (Motrin) 200 mg PO BID [facility] Last Admin: 07/26/19 08:58 Dose: 200 mg Loratadine (Claritin) 10 mg PO DAILYPRN PRN PRN Reason: Allergies Menthol/Methyl Salicylate (Muscle Rub Cream (Bengay)) 1 gm TOP QID PRN PRN Reason: Muscle Pain Last Admin: 07/25/19 06:20 Dose: 1 gm Ondansetron HCl (Zofran Odt) 4 mg PO Q6H PRN PRN Reason: Nausea/Vomiting Ondansetron HCl (Zofran) 4 mg IVP Q6H PRN PRN Reason: Nausea/Vomiting Last Admin: 07/24/19 14:51 Dose: 4 mg Polyethylene Glycol (Miralax) 17 gm PO DAILY [facility] Last Admin: 07/26/19 08:58 Dose: 17 gm Senna/Docusate Sodium (Senokot S) 2 tab PO BID PRN PRN Reason: Constipation Last Admin: 07/24/19 13:29 Dose: 2 tab Sodium Chloride (Flush - Normal Saline) 10 ml IVF PRN PRN PRN Reason: Saline Flush Last Admin: 07/25/19 20:44 Dose: 10 ml Vital Signs & Weight: Vital Signs Temp Pulse 07/26/19 08:58 100 07/26/19 07:15 96.8 F L 07/26/19 03:53 98.3 F 07/25/19 23:28 98.5 F Weight 150 lb 8 oz - Physical Exam General: alert & oriented x3 HEENT: mucus membranes moist Neck: supple neck Cardiac: irregularly regular Lungs: decreased breath sounds Neuro: cranial nerve 2-12 intact Skin: clear Musculoskeletal: decreased range of motion - Labs Result Diagrams: 07/26/19 04:00 07/26/19 04:00 Troponin/CKMB Troponin I 0.069 ng/mL (< 0.028) H 07/22/19 01:31 - Telemetry Sinus rhythms and dysrhythmias: sinus rhythm - Assessment/Plan Assessment/Plan: 1. New-Onset A-Fib w/ RVR - well controlled HR with Digoxin 0.25mg qd; On Lovenox BID; not on Amio or Diltaizem due to hypotension 2. 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 RAUL - stable 4. HTN - hypotesive without any BP med 5. Hx of Rt ICA stenosis 6. Tobacco abuse - smoking cessation education given to the pt MAR reviewed * Echo on 07/22/2019 with EF 15-20%, grade III dd, mild ERA, mod dilated LA, mild-mod MR, mild TR, dilated IVC * The pt needs LifeVest at discharge Pt. seen and eval. by mne. Good diuresis over the weekend. Feels better, still has rhonchi and wheezes. Irreg/irreg. rhythm. Mild edema, improved. continue present treatment. Plan on cardiac cath when CHF resolved or stable.
[2019-07-26] MEDS ORDERED: Potassium Chloride 20 MEQ TAB PO SCH (16:45)
--- NOTE | 2019-07-26 16:54 | PRG ---
DATE OF SERVICE: 07/26/2019 SERVICE: Pulmonary Medicine. INTERVAL HISTORY: The patient is doing great from respiratory standpoint. She is breathing comfortably. Her strength is a little bit low right now. She denies any nausea or vomiting. She did not have any lightheadedness on standing. She was never put on the dobutamine. She was left in the IMCU over the weekend, however. PHYSICAL EXAMINATION: VITAL SIGNS: Afebrile. Pulse 74, respirations 18, blood pressure 110/67, and saturation 96% currently on room air. GENERAL: The patient is awake and alert. No apparent distress. LUNGS: Decent air entry. No prolonged expiratory phase or wheezing is appreciated. Crackles are noted. HEART: Normal rate. Regular. ABDOMEN: Soft, nontender, and nondistended. Bowel sounds are positive. MUSCULOSKELETAL: No cyanosis or clubbing. There is 1 to 2+ pitting in the bilateral lower extremities, which is improving. LABORATORY DATA: WBC 4.3, hemoglobin 13.5, platelets 165,000. Chloride 89 and downtrending. Basic metabolic profile is otherwise unremarkable. Bicarb has jumped up to 36, glucose 78. BNP 2700, which is up trending. ASSESSMENT: 1. Acute hypoxic respiratory failure, resolved. 2. Atrial fibrillation with rapid ventricular rate, currently rate control. 3. Acute systolic heart failure (10% EF). 4. Right-sided pleural effusion. DISCUSSION AND PLAN: The patient is doing fine from respiratory standpoint. Her blood pressure remains fairly stable. She seems to be diuresing quite well. We will continue to diurese her to euvolemia. She has developed a contraction alkalosis. I think it would be reasonable to back off on the Lasix to once daily. If she remains in this location, I will follow. From my perspective, she is stable for transition to the floor. Job ID: [id number] [facility]
[2019-07-26] MEDS: Atorvastatin Calcium 40 MG TAB PO SCH (21:32)
--- NOTE | 2019-07-26 22:59 | EKG ---
Test Reason : Blood Pressure : / mmHG Vent. Rate : 134 BPM Atrial Rate : 133 BPM P-R Int : 000 ms QRS Dur : 102 ms QT Int : 264 ms P-R-T Axes : 000 094 202 degrees QTc Int : 394 ms Atrial fibrillation with rapid ventricular response Rightward axis Nonspecific T wave abnormality , probably digitalis effect Abnormal ECG When compared with ECG of 21-JUL-2019 18:48, (Unconfirmed) Nonspecific T wave abnormality has replaced inverted T waves in Lateral leads Confirmed by DENA ROACH M.D. ([id number]) on 07/26/2019 10:58:50 PM Referred By: [place] Confirmed By:DENA ROACH M.D.
[2019-07-26] MEDS: Senokot S 8.6-50 MG TAB PO SCH (23:13)
[2019-07-27] MEDS: Furosemide 40 MG/4 ML VIAL SLOW IVP SCH (05:40)
[2019-07-27 05:56] LABS: #Basophils 0.1 thou/uL (0.0-0.2); #Lymphocytes 1.5 thou/uL (1.20-3.40); #Monocytes 0.6 thou/uL (0.11-0.59); %Basophils 1.2 % (0.0-1.0); %Eosinophils 0.4 % (0.0-10.0); %Lymphocytes 35.8 % (21.0-51.0); %Monocytes 13.8 % (0.0-10.0); %Neutrophils 48.7 % (42.0-75.0); Hemoglobin 14.2 g/dL (12.0-16.0); Mean Corpuscular Hemoglobin 30.7 pg (27.0-31.0); Platelet Count 155 thou/uL (130-400); RBC Distribution Width 13.9 % (11.5-14.5); Red Blood Cell (RBC) Count 4.64 mill/uL (4.20-5.40); White Blood Cell (WBC) Count 4.1 thou/uL (4.8-10.8)
[2019-07-27 06:07] LABS: Anion Gap 15 mmol/L (10-20); BUN (Urea Nitrogen) 15 mg/dL (9.8-20.1); Calc. Creatinine Clearance 77 mL/min (70-130); Calcium 8.2 mg/dL (7.8-10.44); Carbon Dioxide 35 mmol/L (23-31); Chloride 89 mmol/L (98-107); Estimated GFR-MDRD 81; Glucose 64 mg/dL (83-110); Sodium 135 mmol/L (136-145)
--- NOTE | 2019-07-27 06:43 | PDOC.FM ---
- Subjective Subjective: Patient lying in bed this morning, states her back and left leg hurt and she wants to be repositioned. Patient continues to complain of decreased appetite and nausea. Did eat a couple bites of oatmeal yesterday but followed by 1-2 episodes of vomiting about 1 hour after. Later on in evening she says she was able to eat a banana. Has not eaten anything off her breakfast tray this morning. Patient states she did have a cholecystectomy in the 1970s. - Objective Vital Signs & Weight: Vital Signs (12 hours) Temp Pulse Resp BP Pulse Ox 07/27/19 04:00 97.8 F 70 18 88/61 L 92 L 07/26/19 23:47 95 111/74 92 L 07/26/19 19:17 98.1 F 50 L 18 105/72 92 L Weight Weight 67.812 kg Most Recent Monitor Data Heart Rate from ECG 84 NIBP 90/54 NIBP BP-Mean 66 Respiration from ECG 21 SpO2 94 I&O: 07/25/19 07/26/19 07/27/19 06:59 06:59 06:59 Intake Total 1360 1150 980 Output Total 2400 2150 1900 Balance -1040 -1000 -920 Result Diagrams: 07/27/19 04:44 07/27/19 10:18 Phys Exam - Physical Examination Constitutional: NAD HEENT: moist MMs, sclera anicteric Neck: no JVD, supple, full ROM Respiratory: no wheezing bilateral scattered rhonchi anteriorally Cardiovascular: RRR, no significant murmur Gastrointestinal: soft, no distention, positive bowel sounds TTP in RUQ, epigastric, & LLQ Musculoskeletal: pulses present trace nonpitting edema in bilateral LE Neurological: normal sensation Psychiatric: A&O x 3 Deviation from normal: flat affect Skin: no rash, normal turgor Dx/Plan (1) A-fib Code(s): I48.91 - UNSPECIFIED ATRIAL FIBRILLATION Status: Acute Qualifiers: Atrial fibrillation type: unspecified Qualified Code(s): I48.91 - Unspecified atrial fibrillation (2) RAUL (acute kidney injury) Code(s): N17.9 - ACUTE KIDNEY FAILURE, UNSPECIFIED Status: Acute (3) CHF (congestive heart failure) Code(s): I50.9 - HEART FAILURE, UNSPECIFIED Status: Acute Qualifiers: Heart failure type: systolic Heart failure chronicity: unspecified Qualified Code(s): I50.20 - Unspecified systolic (congestive) heart failure (4) Tobacco abuse Code(s): Z72.0 - TOBACCO USE Status: Acute - Plan Plan: Patient is a 74 yo female who presents with weakness and congestion is admitted for new onset A-Fib with RVR and new onset CHF: 1. New-Onset A-Fib w/ RVR - Pt remains in the IMCU on 07/26/19. She initially was started on cardizem but due to low blood pressures she was switched to amiodarone which was stopped due to low BP's. Dr. Quinoens loaded pt with digoxin on 07/22/19. Echo revealed restrictive filling pattern w/ an EF of 15-20%. At this time pt is rate controlled with normotensive BP's this morning. She will remain IMCU at this time as bp's need to be monitored as she is diuresed of fluids and may need dobutamine , per Dr. Quinones. BNP 2721. Dig level 1.75. She will not go for a cath until her heart failure is better controlled. -Anticoagulation Lovenox 70 mg SC twice daily, plan to transition to PO later today, recheck anti-10a level today @ 1300 (needs to be 4 hours post Lovenox admin) -ProCal: negative -Consulted Cardiology, appreciate rec's -Dr. Adame saw patient over the weekend, states will continue to diurese and monitor digoxin levels -Dr. Quinones to resume seeing patient on 07/26, states will continue to diurese and monitor, plan for cardiac cath when CHF resolved or stable -patient will need life vest at discharge -transition from IMCU to telemetry on 07/26 2. New-Onset CHF -IV Lasix [address] Hills; appreciate rec's -Echo revealed EF 15-20% -HPI and physical exam consistent w/ classic findings of CHF -BNP: 1096 --> 2722 -Statin therapy began as pt likely has ischemic cardiomyopathy -Heart failure clinic has seen and evaluated patient, per protocol have instructed patient will need follow up with Dr. Quinones within 2 weeks after discharge unless Dr. Quinones desires patient to see HF clinic first, appreciate recs 3. Sinusitis -2 week hx of sinus pressure and nasal congestion. Possible illness recent cause for problems above -Hx of smoking. Possibly some underlying COPD. - d/c levequin and start doxycycline (07/22). -CXR revealed R pleural effusion vs pneumonia. Less likely pneumonia as procal negative but will continue to treat for a total of 7 days. 4. RAUL -Cr 1.22 --> 1.17 --> 0.79. Improving with diuresing. -At this time will hold off on fluids 2/2 to x-ray findings and edema. -Trend AM BMP 5. Hx of HTN -Hasn't been on medication for 10 years. -Normotensive to hypotensive throughout stay -Continue to monitor vitals 6. Tobacco Abuse -counseling aide smoking cessation 7. R ICA Stenosis - started Atorvastatin therapy; aspirin 81 mg 8. Hypokalemia - replete with IV KCl as needed - likely due to decreased PO intake 9. Poor PO Intake - initially thought might improve with BM, but patient has since had 2 moderate BMs - has Zofran available prn - will add on scheduled Zofran q6hr 10. Constipation -No BM in about a week. -not alleviated with PO Polyethylene glycol. Ordered fleets enema on 07/25. -Patient had 1 BM @ 1700 on 07/25, another 1 BM on 07/26 -continue scheduled PO PEG & Senna Code: FULL Diet: Regular DVT PPx: SCDs & Therapeutic Lovenox Dispo: Stable, admit to telemetry for medication optimization and rate control. Await further recs from Cardiology, appreciate recs. Expected LOS > 48H. Addendum - Attending - Attending Attestation Date/Time: 07/27/19 1510 I personally evaluated the patient and discussed the management with Dr. Gross I agree with the History, Examination, Assessment and Plan documented above with any addition or exceptions noted below. Patient with several beat run of assumed V tach check EKG,digoxin, BMP,Mg and troponin hold digoxin for now patient otherwise stable enjoying her Birthday today. Cardiology will be notified with additional information. Patient appears to becoming volume contracted decrease diuretic.
[2019-07-27] MEDS: Doxycycline 100 MG CAP PO SCH ×2 (08:42→21:27)
[2019-07-27] MEDS: Ibuprofen 200 MG TAB PO SCH ×2 (08:42→21:27)
[2019-07-27] MEDS: Digoxin 0.25 MG TAB PO SCH (08:42)
[2019-07-27] MEDS: Aspirin 81 mg Enteric Coated Tablet PO SCH (08:42)
[2019-07-27] MEDS: Senokot S 8.6-50 MG TAB PO SCH ×2 (08:42→21:27)
[2019-07-27] MEDS: Enoxaparin Sodium 80 MG/0.8 ML SYRINGE SC SCH ×2 (08:43→21:26)
[2019-07-27] MEDS: Polyethylene Glycol 3350 17 GM Packet PO SCH (09:00)
[2019-07-27] MEDS: Ondansetron PF 4 MG/2 ML Vial IVP SCH ×3 (09:02→21:27)
--- NOTE | 2019-07-27 10:15 | PRG ---
DATE OF SERVICE: 07/27/2019 SERVICE: Pulmonary Medicine. INTERVAL HISTORY: The patient is doing okay from respiratory standpoint. She remains on 1 to 2 L nasal cannula. Her saturations remain marginal. She does not have much motivation to get out of bed or move. At this point, she has symptoms that are consistent with depression. Of note, this is just an adjustment issue , or whether or not it is a major depressive episode. That being said, she has a history of major depressive disorder, and was put on medication over 40 years ago for a couple of years. It did improve her symptoms at that time, and these are similar to those symptoms that she experienced. PHYSICAL EXAMINATION: VITAL SIGNS: Afebrile, pulse 81, blood pressure 93/56, respirations 16, and saturation 90% on 2 L nasal cannula. GENERAL: The patient is awake and alert, in no apparent distress. LUNGS: Decent air entry. There are crackles present. No prolonged expiratory phase or wheezing is appreciated. HEART: Normal rate and regular. ABDOMEN: Soft, nontender, and nondistended. Bowel sounds are positive. MUSCULOSKELETAL: No cyanosis or clubbing. There is 1+ pitting, which is improving. NEUROLOGIC: Grossly nonfocal. LABORATORY DATA: WBC 4.1, hemoglobin 14.2, and platelets 155,000. Potassium 4.0. Basic metabolic profile is otherwise unremarkable. Glucose 64. ASSESSMENT: 1. Acute hypoxic respiratory failure, improving. 2. Atrial fibrillation with rapid ventricular response, currently rate control. 3. Acute systolic heart failure (10% EF). 4. Right-sided pleural effusion. DISCUSSION AND PLAN: Once the patient returns to euvolemia, repeat chest x-ray should be considered. If the effusion persists, a thoracentesis would be considered. This can be postponed for a couple of weeks in the outpatient setting. I do believe the patient is having depression type symptoms, whether or not this turns into a depressive episode or not has yet to be seen. I do believe it would be reasonable to initiate an anti-depressive agent. I will leave this to the primary service. I would look at her laboratories on a daily basis, and consider an additional afternoon dose of Lasix once her contraction alkalosis subsides. She remains a touch volume up, but is moving in the right direction. I am concerned that her lack of appetite, nausea, and lack of energy could be symptoms of low cardiac output. At this point, however, she has no further requirements for inpatient Pulmonary or Critical Care opinion, and I will sign off. Please call with additional questions or concerns through time. Job ID: [id number] [facility]
[2019-07-27 10:51] LABS: BUN (Urea Nitrogen) 13 mg/dL (9.8-20.1); Calc. Creatinine Clearance 72 mL/min (70-130); Calcium 8.9 mg/dL (7.8-10.44); Estimated GFR-MDRD 75; Glucose 92 mg/dL (83-110); Magnesium 1.4 mg/dL (1.6-2.6)
[2019-07-27 10:56] LABS: Troponin I 0.071 ng/mL (< 0.028)
[2019-07-27 11:03] LABS: Anion Gap 14 mmol/L (10-20); Carbon Dioxide 40 mmol/L (23-31); Chloride 86 mmol/L (98-107); Potassium 3.6 mmol/L (3.5-5.1); Sodium 136 mmol/L (136-145)
[2019-07-27 11:14] LABS: Digoxin 3.15 ng/mL (0.8-2.0)
[2019-07-27] MEDS ORDERED: Magnesium Oxide 400 MG TAB PO SCH (11:45)
--- NOTE | 2019-07-27 13:45 | PQF ---
CLINICAL DOCUMENTATION IMPROVEMENT CLARIFICATION FORM: ICD-10 Updated PLEASE DO AN ADDENDUM TO THE PROGRESS NOTE WITH ANY DOCUMENTATION UPDATES OR ADDITIONS AND CARRY THROUGH TO DC SUMMARY. THANK YOU. DATE: 07/27/2019; 07/28/2019 ATTN: Dr. Gross/ Attending Dr. Gambino Please exercise your independent, professional judgment in responding to the clarification form. Clinical indicators are provided on the bottom of this form for your review Please check appropriate box(s) to clarify if the following diagnosis has been ruled in or ruled out: Type II myocardial infarction [ x ] Ruled in diagnosis [ x ] Continue to treat [ ] Resolved [ ] Ruled out diagnosis [ ] Cannot rule out diagnosis [ ] Other diagnosis [ ] Unable to determine In addition, please specify: Present on Admission (POA): [ x ] Yes [ ] No [ ] Unable to determine For continuity of documentation, please document condition throughout progress notes and discharge summary. Thank You. CLINICAL INDICATORS - SIGNS / SYMPTOMS / LABS / RESULTS AND LOCATION IN MR 07/22 () Lab Data: Her troponin originally on admission was 0.076, increased up to 0.083, it is now decreased back down to 0.069. I suspect this is due to the atrial fibrillation with rapid ventricular response. Impression: Abnormal cardiac enzymes, which most likely indicate a type 2 myocardial infarction due to the demand ischemia associated with the atrial fibrillation. RISKS: H&P 07/21: New onset A Fib s/ RVR; New onset CHF. RAUL vs CKD. Hx of HTN. Tobacco Abuse. TREATMENTS: 07/22 Cardiology Consult ordered. MAR: Order 07/21: Lovenox 70 mg SC 0900, 2100 MAR: Order 07/22: Amiodarone 450mg IV Thank you, Nancy (This form is maintained as a part of the permanent medical record) 2014 [employer]. All Rights Reserved Nancy Chakraborty RN, BSN [email or web address] Office: [phone] [facility]
--- NOTE | 2019-07-27 16:57 | PDOC.CPN ---
- Subjective Date: 07/27/19 Time: 10:00 Interval history: pt. is still congested and coughing. - Review of Systems General: denies: fever/chills, weight/appetite/sleep changes, night sweats, fatigue Respiratory: reports: cough, shortness of breath. denies: congestion, exercise intolerance Cardiovascular: denies: chest pain, palpitation, paroxysmal nocturnal dyspnea, orthopnea Gastrointestinal: reports: nausea Neurological: reports: weakness - Objective Allergies/Adverse Reactions: Allergies Allergy/AdvReac Type Severity Reaction Status Date / Time Penicillins Allergy Verified 07/21/19 21:45 Visit Medications: Current Medications Acetaminophen (Tylenol) 650 mg PO Q4H PRN PRN Reason: Headache/Fever/Mild Pain (1-3) Last Admin: 07/25/19 17:10 Dose: 650 mg Aspirin (Ecotrin) 81 mg PO DAILY [facility] Last Admin: 07/27/19 08:42 Dose: 81 mg Atorvastatin Calcium (Lipitor) 40 mg PO HS [facility] Last Admin: 07/26/19 21:32 Dose: 40 mg Doxycycline Hyclate (Vibramycin) 100 mg PO BID [facility] Stop: 07/27/19 21:01 Last Admin: 07/27/19 08:42 Dose: 100 mg Enoxaparin Sodium (Lovenox) 70 mg SC 0900,2100 [facility] Last Admin: 07/27/19 08:43 Dose: 70 mg Furosemide (Lasix) 40 mg SLOW IVP 0600 [facility] Last Admin: 07/27/19 05:40 Dose: 40 mg Amiodarone HCl 450 mg/ (Dextrose/Water) 259 mls @ 0 mls/hr IVPB INF [facility]; Protocol Last Admin: 07/23/19 02:32 Dose: 259 mls Ibuprofen (Motrin) 200 mg PO BID [facility] Last Admin: 07/27/19 08:42 Dose: 200 mg Loratadine (Claritin) 10 mg PO DAILYPRN PRN PRN Reason: Allergies Menthol/Methyl Salicylate (Muscle Rub Cream (Bengay)) 1 gm TOP QID PRN PRN Reason: Muscle Pain Last Admin: 07/25/19 06:20 Dose: 1 gm Ondansetron HCl (Zofran) 4 mg IVP Q6H [facility] Last Admin: 07/27/19 14:53 Dose: 4 mg Polyethylene Glycol (Miralax) 17 gm PO DAILY [facility] Last Admin: 07/27/19 09:00 Dose: Not Given Senna/Docusate Sodium (Senokot S) 2 tab PO BID PRN PRN Reason: Constipation Last Admin: 07/24/19 13:29 Dose: 2 tab Senna/Docusate Sodium (Senokot S) 1 tab PO BID [facility] Last Admin: 07/27/19 08:42 Dose: 1 tab Sodium Chloride (Flush - Normal Saline) 10 ml IVF PRN PRN PRN Reason: Saline Flush Last Admin: 07/25/19 20:44 Dose: 10 ml Vital Signs & Weight: Vital Signs Temp Pulse Pulse Pulse Resp BP BP 07/27/19 12:00 97.8 F 82 16 07/27/19 09:35 86 90 92/59 L 95/53 L 07/27/19 09:22 92/59 L 07/27/19 08:33 98.4 F 81 16 07/27/19 08:00 07/27/19 07:32 07/27/19 05:55 91 BP Pulse Ox 07/27/19 12:00 95/64 94 L 07/27/19 09:35 07/27/19 09:22 07/27/19 08:33 93/56 L 90 L 07/27/19 08:00 90 L 07/27/19 07:32 92 L 07/27/19 05:55 102/66 Weight 149 lb 8 oz - Quality Measures CV meds: Beta Zahida: No (copd), CHEY/ARB: No (renal insuff.) - Physical Exam HEENT: normocephaly Cardiac: irregularly regular Lungs: decreased breath sounds, scattered rhonchi Neuro: grossly intact Abdomen: soft Extremities: 1+ LE edema - Labs Result Diagrams: 07/27/19 04:44 07/27/19 10:18 Troponin/CKMB Troponin I 0.071 ng/mL (< 0.028) H 07/27/19 10:18 - Telemetry Supraventricular conduction: atrial fibrillation - Assessment/Plan Assessment/Plan: 1. New-Onset A-Fib w/ RVR - well controlled HR with Digoxin 0.25mg qd; On Lovenox BID; not on Amio or Diltaizem due to hypotension 2. 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 I will advise cath when she is stable. 3. RAUL - stable at this time. 4. HTN - hypotesive without any BP med 5. Hx of Rt ICA stenosis 6. Tobacco abuse - smoking cessation advised. 7. N/V. Digoxin level 3.5. hold digoxin and amiodarone. This is likely the etiology of her nausea. If the level does not decrease or increases then digibind may be nec.
[2019-07-27] MEDS: Atorvastatin Calcium 40 MG TAB PO SCH (21:27)
[2019-07-28] MEDS: Ondansetron PF 4 MG/2 ML Vial IVP SCH ×4 (04:19→21:51)
[2019-07-28] MEDS: Furosemide 40 MG/4 ML VIAL SLOW IVP SCH (05:41)
[2019-07-28 06:05] LABS: #Basophils 0.1 thou/uL (0.0-0.2); #Lymphocytes 1.3 thou/uL (1.20-3.40); #Monocytes 0.6 thou/uL (0.11-0.59); #Neutrophils 2.2 thou/uL (1.40-6.50); %Basophils 1.2 % (0.0-1.0); %Lymphocytes 30.1 % (21.0-51.0); %Monocytes 14.4 % (0.0-10.0); %Neutrophils 53.3 % (42.0-75.0); Hemoglobin 13.8 g/dL (12.0-16.0); Mean Corpuscular HGB CONC 32.4 g/dL (32.0-36.0); Mean Corpuscular Hemoglobin 30.7 pg (27.0-31.0); Mean Corpuscular Volume 94.8 fL (78.0-98.0); Mean Platelet Volume 8.2 fL (7.4-10.4); Platelet Count 147 thou/uL (130-400); RBC Distribution Width 13.9 % (11.5-14.5); Red Blood Cell (RBC) Count 4.49 mill/uL (4.20-5.40); White Blood Cell (WBC) Count 4.2 thou/uL (4.8-10.8)
--- NOTE | 2019-07-28 06:25 | PDOC.FM ---
- Subjective Subjective: Patient states she still feels nauseous but this has improved some. Was able to eat some banana, strawberries, and grapes yesterday. Still has decreased appetite and has not had a good full meal since admission. Patient denies that she feels depressed or sad. She did celebrate her birthday yesterday with some relatives visiting, daughter did not have any concerns. - Objective Vital Signs & Weight: Vital Signs (12 hours) Temp Pulse Resp BP Pulse Ox 07/28/19 04:00 98.3 F 92 19 127/61 95 07/27/19 19:43 98.2 F 89 16 112/69 93 L 07/27/19 19:21 93 L Weight Weight 67.812 kg Most Recent Monitor Data Heart Rate from ECG 84 NIBP 90/54 NIBP BP-Mean 66 Respiration from ECG 21 SpO2 94 I&O: 07/26/19 07/27/19 07/28/19 06:59 06:59 06:59 Intake Total 1150 980 360 Output Total 2150 1900 1500 Balance -1000 -920 -1140 Result Diagrams: 07/28/19 05:45 07/28/19 05:45 Phys Exam - Physical Examination Constitutional: NAD HEENT: moist MMs, sclera anicteric Neck: no JVD, supple, full ROM Respiratory: no wheezing, no rales, no rhonchi, clear to auscultation bilateral Cardiovascular: no significant murmur irregular rate and rhythm Gastrointestinal: soft, no distention, positive bowel sounds TTP in LLQ Musculoskeletal: pulses present trace nonpitting edema in lower extremities Neurological: normal sensation, moves all 4 limbs Psychiatric: normal affect, A&O x 3 Skin: no rash, normal turgor Dx/Plan (1) A-fib Code(s): I48.91 - UNSPECIFIED ATRIAL FIBRILLATION Status: Acute Qualifiers: Atrial fibrillation type: unspecified Qualified Code(s): I48.91 - Unspecified atrial fibrillation (2) RAUL (acute kidney injury) Code(s): N17.9 - ACUTE KIDNEY FAILURE, UNSPECIFIED Status: Acute (3) CHF (congestive heart failure) Code(s): I50.9 - HEART FAILURE, UNSPECIFIED Status: Acute Qualifiers: Heart failure type: systolic Heart failure chronicity: unspecified Qualified Code(s): I50.20 - Unspecified systolic (congestive) heart failure (4) Tobacco abuse Code(s): Z72.0 - TOBACCO USE Status: Acute - Plan Plan: Patient is a 74 yo female who presents with weakness and congestion is admitted for new onset A-Fib with RVR and new onset CHF: 1. New-Onset A-Fib w/ RVR - Pt remains in the IMCU on 07/26/19. She initially was started on cardizem but due to low blood pressures she was switched to amiodarone which was stopped due to low BP's. Dr. Quinones loaded pt with digoxin on 07/22/19. Echo revealed restrictive filling pattern w/ an EF of 15-20%. At this time pt is rate controlled with normotensive BP's this morning. She was transitioned out of IMCU to telemetry on 07/26/19. Blood pressure will need to be monitored as she is diuresed of fluids and may need dobutamine , per Dr. Quinones. BNP 2722 > 860. Dig level 1.75 > 3.15, so will hold Digoxin with repeat level at 0900 today. She will not go for a cath until her heart failure is better controlled. -Anticoagulation Lovenox 70 mg SC twice daily, plan to transition to PO later today -anti-10a level 1.61 (therapeutic for once daily dosing) -ProCal: negative -Consulted Cardiology, appreciate rec's -Dr. Adame saw patient over the weekend, states will continue to diurese and monitor digoxin levels -Dr. Quinones to resume seeing patient on 07/26, states will continue to diurese and monitor, plan for cardiac cath when CHF resolved or stable -patient will need life vest at discharge; further states to continue to hold Digoxin and Amiodarone, the Digoxin may be cause of patient's nausea, if repeat Digoxin level does not change today then will need to give Digibind -transition from IMCU to telemetry on 07/26 2. New-Onset CHF -IV Lasix [address] Hills; appreciate rec's -Echo revealed EF 15-20% -HPI and physical exam consistent w/ classic findings of CHF -BNP: 1096 --> 2722 --> 860 (07/27) -Statin therapy began as pt likely has ischemic cardiomyopathy -Heart failure clinic has seen and evaluated patient, per protocol have instructed patient will need follow up with Dr. Quinones within 2 weeks after discharge unless Dr. Quinones desires patient to see HF clinic first, appreciate recs -Patient near euvolemia today, will repeat CXR per Dr. Hills 3. Sinusitis -2 week hx of sinus pressure and nasal congestion. Possible illness recent cause for problems above -Hx of smoking. Possibly some underlying COPD. - d/c levequin and start doxycycline (07/22). -CXR revealed R pleural effusion vs pneumonia. Less likely pneumonia as procal negative but will continue to treat for a total of 7 days. 4. RAUL -Cr 1.22 --> 1.17 --> 0.79. Improving with diuresing. -At this time will hold off on fluids 2/2 to x-ray findings and edema. -Trend AM BMP 5. Hx of HTN -Hasn't been on medication for 10 years. -Normotensive to hypotensive throughout stay -Continue to monitor vitals 6. 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 R ICA Stenosis - started Atorvastatin therapy; aspirin 81 mg 8. Hypokalemia - replete with IV KCl as needed - likely due to decreased PO intake 9. Poor PO Intake - initially thought might improve with BM, but patient has since had 2 moderate BMs - has Zofran available prn - will add on scheduled Zofran q6hr - thought to be due to Digoxin - Dr. Reinier oropeza suggest nausea and decreased appetite due to Depression, can consider starting SSRI as an outpatient if symptoms persist 10. Constipation--resolved -No BM in about a week. -not alleviated with PO Polyethylene glycol. Ordered fleets enema on 07/25. -Patient had 1 BM @ 1700 on 07/25, another 1 BM on 07/26, 2 BMs on 07/27 -continue scheduled PO PEG & Senna Code: FULL Diet: Regular DVT PPx: SCDs & Therapeutic Lovenox Dispo: Stable, admit to telemetry for medication optimization and rate control. Continue to hold Digoxin and await repeat level before deciding if patient needs Digibind. Will give Digibind if patient develops another episode of arrhythmia. Await further recs from Cardiology, appreciate recs. Expected LOS > 48H. Addendum - Attending - Attending Attestation Date/Time: 07/28/191910 I personally evaluated the patient and discussed the management with Dr. Gross I agree with the History, Examination, Assessment and Plan documented above with any addition or exceptions noted below. Patient feeling better appetite is improved heart rate remains controlled, dig level down to 1.6 will repeat am level.Will start discharge plan for patient and CXR shows resolving pleural effusion. Cardiology for further recommendation regard Atrial fibrillation,HF and lanoxin dosing.
[2019-07-28 06:26] LABS: BUN (Urea Nitrogen) 13 mg/dL (9.8-20.1); Calc. Creatinine Clearance 74 mL/min (70-130); Calcium 8.7 mg/dL (7.8-10.44); Estimated GFR-MDRD 77; Glucose 82 mg/dL (83-110)
[2019-07-28 06:37] LABS: Anion Gap 15 mmol/L (10-20); Carbon Dioxide 39 mmol/L (23-31); Chloride 88 mmol/L (98-107); Potassium 3.5 mmol/L (3.5-5.1); Sodium 138 mmol/L (136-145)
[2019-07-28] MEDS: Polyethylene Glycol 3350 17 GM Packet PO SCH (08:12)
[2019-07-28] MEDS: Ibuprofen 200 MG TAB PO SCH ×2 (08:13→21:50)
[2019-07-28] MEDS: Senokot S 8.6-50 MG TAB PO SCH ×2 (08:13→21:51)
[2019-07-28] MEDS: Enoxaparin Sodium 80 MG/0.8 ML SYRINGE SC SCH (08:14)
[2019-07-28] MEDS: Aspirin 81 mg Enteric Coated Tablet PO SCH (08:15)
--- NOTE | 2019-07-28 11:33 | RAD ---
CHEST TWO VIEWS: HISTORY: CHF. COMPARISON: 07/21/2019 FINDINGS: Mild cardiomegaly with prominent aortic calcification. There is confluent infiltrate in the right dinesh g base with associated effusion and atelectasis. The left lung appears clear. Vascular markings are mildly prominent but stable. IMPRESSION: 1. Persistent infiltrate in the right lung base with small bilateral effusions. 2. Cardiomegaly and mild vascular engorgement. POS: TPC
--- NOTE | 2019-07-28 12:16 | PDOC.CPN ---
- Subjective Date: 07/28/19 Time: 12:19 Interval history: The pt seen and examined. No overnight events. No cardiac complaints. - Objective Allergies/Adverse Reactions: Allergies Allergy/AdvReac Type Severity Reaction Status Date / Time Penicillins Allergy Verified 07/21/19 21:45 Visit Medications: Current Medications Acetaminophen (Tylenol) 650 mg PO Q4H PRN PRN Reason: Headache/Fever/Mild Pain (1-3) Last Admin: 07/25/19 17:10 Dose: 650 mg Aspirin (Ecotrin) 81 mg PO DAILY [facility] Last Admin: 07/28/19 08:15 Dose: 81 mg Atorvastatin Calcium (Lipitor) 40 mg PO HS [facility] Last Admin: 07/27/19 21:27 Dose: 40 mg Enoxaparin Sodium (Lovenox) 70 mg SC 0900 [facility] Furosemide (Lasix) 40 mg SLOW IVP 0600 [facility] Last Admin: 07/28/19 05:41 Dose: 40 mg Amiodarone HCl 450 mg/ (Dextrose/Water) 259 mls @ 0 mls/hr IVPB INF [facility]; Protocol Last Admin: 07/23/19 02:32 Dose: 259 mls Ibuprofen (Motrin) 200 mg PO BID [facility] Last Admin: 07/28/19 08:13 Dose: 200 mg Loratadine (Claritin) 10 mg PO DAILYPRN PRN PRN Reason: Allergies Menthol/Methyl Salicylate (Muscle Rub Cream (Bengay)) 1 gm TOP QID PRN PRN Reason: Muscle Pain Last Admin: 07/25/19 06:20 Dose: 1 gm Ondansetron HCl (Zofran) 4 mg IVP Q6H [facility] Last Admin: 07/28/19 08:20 Dose: 4 mg Polyethylene Glycol (Miralax) 17 gm PO DAILY [facility] Last Admin: 07/28/19 08:12 Dose: 17 gm Senna/Docusate Sodium (Senokot S) 2 tab PO BID PRN PRN Reason: Constipation Last Admin: 07/24/19 13:29 Dose: 2 tab Senna/Docusate Sodium (Senokot S) 1 tab PO BID [facility] Last Admin: 07/28/19 08:13 Dose: 1 tab Sodium Chloride (Flush - Normal Saline) 10 ml IVF PRN PRN PRN Reason: Saline Flush Last Admin: 07/25/19 20:44 Dose: 10 ml Vital Signs & Weight: Vital Signs Temp Pulse Resp BP Pulse Ox 07/28/19 11:44 98.1 F 99 18 104/64 92 L 07/28/19 08:00 98.9 F 80 18 102/62 92 L 07/28/19 07:41 95 07/28/19 04:00 98.3 F 92 19 127/61 95 Weight 143 lb - Quality Measures CV meds: Beta Zahida: No (copd), CHEY/ARB: No (renal insuff.) - Physical Exam General: alert & oriented x3 Neck: supple neck Cardiac: irregularly regular Lungs: decreased breath sounds Skin: clear Musculoskeletal: decreased range of motion - Labs Result Diagrams: 07/28/19 05:45 07/28/19 05:45 Troponin/CKMB Troponin I 0.071 ng/mL (< 0.028) H 07/27/19 10:18 - Telemetry Supraventricular conduction: atrial fibrillation - Assessment/Plan Assessment/Plan: 1. New-Onset A-Fib w/ RVR - well controlled HR with holding Digoxin 0.25mg qd; Dig level was 1.6 today from >3 yesterday; MAOn Lovenox BID; not on Amio or Diltaizem due to hypotension 2. 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 I will advise cath when she is stable. 3. RAUL - stable at this time. 4. HTN - hypotesive without any BP med 5. Hx of Rt ICA stenosis 6. Tobacco abuse - smoking cessation advised. 7. N/V. Digoxin level 3.5. hold digoxin and amiodarone. This is likely the etiology of her nausea. If the level does not decrease or increases then digibind may be nec. MAR reviewed Pt. seen and eval. by me. She is feeling better. No N/V this AM . She ate breakfast and lunch. The dig. level is back down. I am not certain that the level yesterday was very accurate as the level was drawn 2 hours after she was given the dose. She is doing well off the digoxin and it will be d/c'd for now. i plan to cath her tomorrow to rule out severe CAD as an etiology of the dilated CMY. This may have beed due to the Afib. with RVR and if that is the case the EF may significantly improve now that the rate is controlled. After the cath she will be switched to po OAC and then consider cardioversion depending on the results of the cardiac cath. Chest: clear,CV: irreg/irreg. Trace edema,
[2019-07-28] MEDS ORDERED: Communication Order-Pharmacy FS SCH (15:15)
[2019-07-28] MEDS ORDERED: Sodium Chloride 0.9% 10 ML ONE (20:25)
[2019-07-28] MEDS: Atorvastatin Calcium 40 MG TAB PO SCH (21:51)
[2019-07-29] MEDS ORDERED: Sodium Chloride 0.9% 10 ML ONE (03:35)
[2019-07-29] MEDS: Ondansetron PF 4 MG/2 ML Vial IVP SCH ×3 (04:03→15:21)
[2019-07-29 05:23] LABS: BUN (Urea Nitrogen) 13 mg/dL (9.8-20.1); Calc. Creatinine Clearance 68 mL/min (70-130); Calcium 8.9 mg/dL (7.8-10.44); Estimated GFR-MDRD 74; Glucose 86 mg/dL (83-110)
[2019-07-29 05:32] LABS: Anion Gap 14 mmol/L (10-20); Carbon Dioxide 40 mmol/L (23-31); Chloride 88 mmol/L (98-107); Potassium 3.4 mmol/L (3.5-5.1); Sodium 139 mmol/L (136-145)
--- NOTE | 2019-07-29 05:36 | PDOC.FM ---
- Subjective Subjective: Patient states she feels better this morning. Nausea still present but improved. She did try to eat a bit more for dinner last night. Complains of left leg pain that improves with movement and repositioning. Patient reminded that she has Tylenol and Motrin available if she wants it but has so far not requested this. - Objective Vital Signs & Weight: Vital Signs (12 hours) Temp Pulse Resp BP Pulse Ox 07/29/19 04:00 98.2 F 73 18 111/82 93 L 07/28/19 19:45 99.1 F 97 22 H 115/70 93 L Weight Weight 64.864 kg Most Recent Monitor Data Heart Rate from ECG 84 NIBP 90/54 NIBP BP-Mean 66 Respiration from ECG 21 SpO2 94 I&O: 07/27/19 07/28/19 07/29/19 06:59 06:59 06:59 Intake Total 980 660 600 Output Total 1900 2600 800 Balance -920 -1940 -200 Result Diagrams: 07/29/19 04:50 07/29/19 04:50 Phys Exam - Physical Examination Constitutional: NAD HEENT: moist MMs, sclera anicteric Neck: no JVD, supple, full ROM Respiratory: no wheezing, no rhonchi, clear to auscultation bilateral decreased sounds at bases Cardiovascular: RRR, no significant murmur Gastrointestinal: soft, non-tender, no distention, positive bowel sounds Musculoskeletal: pulses present trace edema in bilateral LE Neurological: normal sensation, moves all 4 limbs Psychiatric: normal affect, A&O x 3 Deviation from normal: flat affect Skin: no rash, normal turgor Dx/Plan (1) A-fib Code(s): I48.91 - UNSPECIFIED ATRIAL FIBRILLATION Status: Acute Qualifiers: Atrial fibrillation type: unspecified Qualified Code(s): I48.91 - Unspecified atrial fibrillation (2) RAUL (acute kidney injury) Code(s): N17.9 - ACUTE KIDNEY FAILURE, UNSPECIFIED Status: Acute (3) CHF (congestive heart failure) Code(s): I50.9 - HEART FAILURE, UNSPECIFIED Status: Acute Qualifiers: Heart failure type: systolic Heart failure chronicity: unspecified Qualified Code(s): I50.20 - Unspecified systolic (congestive) heart failure (4) Tobacco abuse Code(s): Z72.0 - TOBACCO USE Status: Acute - Plan Plan: Patient is a 74 yo female who presents with weakness and congestion is admitted for new onset A-Fib with RVR and new onset CHF: 1. New-Onset A-Fib w/ RVR - Pt in the IMCU until 07/26/19. She initially was started on cardizem but due to low blood pressures she was switched to amiodarone which was stopped due to low BP's. Dr. Quinones loaded pt with digoxin on 07/22/19. Echo revealed restrictive filling pattern w/ an EF of 15-20%. At this time pt is rate controlled with normotensive BP's this morning. She was transitioned out of IMCU to telemetry on 07/26/19. Blood pressure will need to be monitored as she is diuresed of fluids and may need dobutamine , per Dr. Quinones. BNP 2722 > 860. Dig level 1.75 > 3.15 > 1.60, continue to hold Digoxin per Dr. Quinones. She will go for a cath today with possible cardioversion pending cath results. -Anticoagulation Lovenox 70 mg SC once daily, plan to transition to PO after cath -anti-10a level 1.61 (therapeutic for once daily dosing) -ProCal: negative -Consulted Cardiology, appreciate rec's -patient will need life vest at discharge -continue to hold Digoxin and Amiodarone, the Digoxin may be cause of patient's nausea -transition from IMCU to telemetry on 07/26 2. New-Onset CHF -IV Lasix [address] Hills; appreciate rec's -Echo revealed EF 15-20% -HPI and physical exam consistent w/ classic findings of CHF -BNP: 1096 --> 2722 --> 860 (07/27) -Statin therapy began as pt likely has ischemic cardiomyopathy -Heart failure clinic has seen and evaluated patient, per protocol have instructed patient will need follow up with Dr. Quinones within 2 weeks after discharge unless Dr. Quinones desires patient to see HF clinic first, appreciate recs -Patient near euvolemia today, repeat CXR on 07/28 showed small bilateral pleural effusions and continued consolidation in right lower lobe -will U/S today to see if possible tap of right lower lung field 3. Sinusitis -2 week hx of sinus pressure and nasal congestion. Possible illness recent cause for problems above -Hx of smoking. Possibly some underlying COPD. - d/c levequin and start doxycycline (07/22). -CXR revealed R pleural effusion vs pneumonia. Less likely pneumonia as procal negative but will continue to treat for a total of 7 days. 4. RAUL -Cr 1.22 --> 1.17 --> 0.79. Improving with diuresing. -At this time will hold off on fluids 2/2 to x-ray findings and edema. -Trend AM BMP 5. Hx of HTN -Hasn't been on medication for 10 years. -Normotensive to hypotensive throughout stay -Continue to monitor vitals 6. 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 R ICA Stenosis - started Atorvastatin therapy; aspirin 81 mg 8. Hypokalemia - replete with IV KCl as needed - likely due to decreased PO intake 9. Poor PO Intake - initially thought might improve with BM, but patient has since had 2 moderate BMs - has Zofran available prn - will add on scheduled Zofran q6hr - thought to be due to Digoxin - Dr. Hills recs suggest nausea and decreased appetite due to Depression, can consider starting SSRI as an outpatient if symptoms persist 10. Constipation--resolved -No BM in about a week. -not alleviated with PO Polyethylene glycol. Ordered fleets enema on 07/25. -Patient had 1 BM @ 1700 on 07/25, another 1 BM on 07/26, 2 BMs on 07/27 -continue scheduled PO PEG & Senna Code: FULL Diet: Regular DVT PPx: SCDs & Therapeutic Lovenox Dispo: Stable, admit to telemetry for medication optimization and rate control. Continue to hold Digoxin, Will give Digibind if patient develops another episode of arrhythmia. Cardiology plans to take patient for cardiac cath today, appreciate recs. Expected LOS > 48H. Addendum - Attending - Attending Attestation Date/Time: 07/29/19 [id number] I personally evaluated the patient and discussed the management with Dr. Gross I agree with the History, Examination, Assessment and Plan documented above with any addition or exceptions noted below. Patient stable off digoxin feeling better and scheduled for heart catherization today.
[2019-07-29 05:40] LABS: Band 1 % (5-11); Lymphocytes 44 % (21-51); MDiff Complete? YES; Mean Corpuscular HGB CONC 32.2 g/dL (32.0-36.0); Mean Corpuscular Hemoglobin 30.5 pg (27.0-31.0); Mean Corpuscular Volume 94.8 fL (78.0-98.0); Monocytes 7 % (0-10); Neutrophil 48 % (42-75); Platelet Count 144 thou/uL (130-400); Platelet Morphology Comment Appears Adequate; RBC Distribution Width 13.9 % (11.5-14.5); Red Blood Cell (RBC) Count 4.59 mill/uL (4.20-5.40); White Blood Cell (WBC) Count 4.3 thou/uL (4.8-10.8)
[2019-07-29] MEDS: Aspirin 81 mg Enteric Coated Tablet PO SCH (06:44)
[2019-07-29] MEDS: Furosemide 40 MG/4 ML VIAL SLOW IVP SCH (06:45)
[2019-07-29] MEDS: Senokot S 8.6-50 MG TAB PO SCH ×2 (08:00→21:49)
[2019-07-29] MEDS: Polyethylene Glycol 3350 17 GM Packet PO SCH (08:00)
[2019-07-29] MEDS: Ibuprofen 200 MG TAB PO SCH ×2 (08:00→21:49)
[2019-07-29] MEDS ORDERED: Enoxaparin Sodium 80 MG/0.8 ML SYRINGE SC SCH (09:00)
[2019-07-29] MEDS ORDERED: Verapamil 5 MG/2 ML VIAL ONE (14:43)
[2019-07-29] MEDS ORDERED: Heparin 10,000 UNITS/1 ML VIAL ONE (14:43)
[2019-07-29] MEDS ORDERED: Nitroglycerin 100MG/250ML BOT 250 ML ONE (14:44)
[2019-07-29] MEDS ORDERED: Lidocaine 1% (PF) 30 ML VIAL ONE (14:44)
[2019-07-29] MEDS ORDERED: Midazolam HCl 2 mg/2 ml Vial ONE (15:39)
[2019-07-29] MEDS ORDERED: Fentanyl 100 MCG/2 ML VIAL ONE (16:37)
[2019-07-29] MEDS ORDERED: hydrALAZINE 20 MG/ML VIAL ONE (16:56)
[2019-07-29] MEDS ORDERED: Acetaminophen/Codeine 30-300mg Tablet PO PRN ×2 (17:18)
[2019-07-29] MEDS ORDERED: Nitroglycerin 0.4 MG TAB (25 Tab Bottle) SL PRN (17:18)
[2019-07-29] MEDS ORDERED: Sodium Chloride 0.9% 200 ML IV PRN (17:18)
[2019-07-29] MEDS: Carvedilol 3.125 MG TAB PO SCH (18:30)
[2019-07-29] MEDS: Atorvastatin Calcium 40 MG TAB PO SCH (21:48)
[2019-07-30] MEDS: Ondansetron PF 4 MG/2 ML Vial IVP SCH ×5 (04:49→21:07)
--- NOTE | 2019-07-30 05:50 | PDOC.FM ---
- Subjective Subjective: Patient had cardiac cath completed yesterday, official report pending. This morning patient states that she has some lower back pain. Left hip and leg pain has improved. States she is regaining her appetite, but dinner tray still present in room and she has only eaten 1/2 banana and one bite of hamburger. Patient has had increasing requirement for O2 in past 24 hours, now up to 3L O2 via N/C (previously was on 1L N/C for comfort). Denies chest pain, chest tightness. Sometimes has SOB. - Objective MAR Reviewed: Yes Vital Signs & Weight: Vital Signs (12 hours) Temp Pulse Resp BP Pulse Ox 07/30/19 03:40 98.2 F 63 22 H 100/62 96 07/29/19 19:56 98.1 F 99 20 152/67 H 92 L Weight Admit Weight 73.737 kg Weight 63.367 kg Most Recent Monitor Data Heart Rate from ECG 84 NIBP 90/54 NIBP BP-Mean 66 Respiration from ECG 21 SpO2 94 I&O: 07/28/19 07/29/19 07/30/19 06:59 06:59 06:59 Intake Total 660 960 240 Output Total 2600 2000 600 Balance -1940 -1040 -360 Result Diagrams: 07/30/19 06:30 07/30/19 06:30 Phys Exam - Physical Examination Constitutional: NAD HEENT: moist MMs, sclera anicteric Neck: no JVD, supple, full ROM Respiratory: no wheezing, no rales, no rhonchi decreased breath sounds in bilateral bases Cardiovascular: RRR, no significant murmur Gastrointestinal: soft, non-tender, no distention, positive bowel sounds Musculoskeletal: pulses present 1+ nonpitting edema in bilateral LE Neurological: normal sensation, moves all 4 limbs Psychiatric: normal affect, A&O x 3 Skin: no rash, normal turgor Dx/Plan (1) A-fib Code(s): I48.91 - UNSPECIFIED ATRIAL FIBRILLATION Status: Acute Qualifiers: Atrial fibrillation type: unspecified Qualified Code(s): I48.91 - Unspecified atrial fibrillation (2) RAUL (acute kidney injury) Code(s): N17.9 - ACUTE KIDNEY FAILURE, UNSPECIFIED Status: Acute (3) CHF (congestive heart failure) Code(s): I50.9 - HEART FAILURE, UNSPECIFIED Status: Acute Qualifiers: Heart failure type: systolic Heart failure chronicity: unspecified Qualified Code(s): I50.20 - Unspecified systolic (congestive) heart failure (4) Tobacco abuse Code(s): Z72.0 - TOBACCO USE Status: Acute - Plan Plan: Patient is a 74 yo female who presents with weakness and congestion is admitted for new onset A-Fib with RVR and new onset CHF: 1. New-Onset A-Fib w/ RVR - Pt in the IMCU until 07/26/19. She initially was started on cardizem but due to low blood pressures she was switched to amiodarone which was stopped due to low BP's. Dr. Quinones loaded pt with digoxin on 07/22/19. Echo revealed restrictive filling pattern w/ an EF of 15-20%. At this time pt is rate controlled with normotensive BP's this morning. She was transitioned out of IMCU to telemetry on 07/26/19. Blood pressure will need to be monitored as she is diuresed of fluids and may need dobutamine , per Dr. Quinones. BNP 2722 > 860. Dig level 1.75 > 3.15 > 1.60, continue to hold Digoxin per Dr. Quinones. -Cardiac cath performed on 07/[address] Quinones, report pending, may/may not go for cardioversion later today, Myocardial Thallium scan ordered by Dr. Quinones -Anticoagulation Lovenox 70 mg SC once daily, plan to transition to PO today or tomorrow -anti-10a level 1.61 (therapeutic for once daily dosing) -ProCal: negative -Consulted Cardiology, appreciate rec's -patient will need life vest at discharge -continue to hold Digoxin and Amiodarone, the Digoxin may be cause of patient's nausea -transition from IMCU to telemetry on 07/26 2. New-Onset CHF -IV Lasix [address] Hills; appreciate rec's -Echo revealed EF 15-20% -HPI and physical exam consistent w/ classic findings of CHF -BNP: 1096 --> 2722 --> 860 (07/27) -Statin therapy began as pt likely has ischemic cardiomyopathy -Heart failure clinic has seen and evaluated patient, per protocol have instructed patient will need follow up with Dr. Quinones within 2 weeks after discharge unless Dr. Quinones desires patient to see HF clinic first, appreciate recs -Patient near euvolemia today, repeat CXR on 07/28 showed small bilateral pleural effusions and continued consolidation in right lower lobe -will U/S today to see if possible tap of right lower lung field 3. Sinusitis -2 week hx of sinus pressure and nasal congestion. Possible illness recent cause for problems above -Hx of smoking. Possibly some underlying COPD. - d/c levequin and start doxycycline (07/22-07/27). -CXR revealed R pleural effusion vs pneumonia. Less likely pneumonia as procal negative but will continue to treat for a total of [address] Hills. -repeat CXR showed continued consolidation in right lower lobe, today patient with increased O2 requirement up to 3L, will consider performing bedside U/S to evaluate for possible tap of area -plan to repeat CXR today 4. RAUL -Cr 1.22 --> 1.17 --> 0.79. Improving with diuresing. -At this time will hold off on fluids 2/2 to x-ray findings and edema. -Trend AM BMP 5. Hx of HTN -Hasn't been on medication for 10 years. -Normotensive to hypotensive throughout stay -Continue to monitor vitals 6. 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 R ICA Stenosis - started Atorvastatin therapy; aspirin 81 mg 8. Hypokalemia - replete with IV KCl as needed - likely due to decreased PO intake 9. Poor PO Intake - initially thought might improve with BM, but patient has since had 2 moderate BMs - has Zofran available prn - will add on scheduled Zofran q6hr - thought to be due to Digoxin - Dr. Hills recisaias suggest nausea and decreased appetite due to Depression, can consider starting SSRI as an outpatient if symptoms persist 10. Constipation--resolved -No BM in about a week. -not alleviated with PO Polyethylene glycol. Ordered fleets enema on 07/25. -Patient had 1 BM @ 1700 on 07/25, another 1 BM on 07/26, 2 BMs on 07/27 -continue scheduled PO PEG & Senna Code: FULL Diet: Regular DVT PPx: SCDs & Therapeutic Lovenox Dispo: Stable, admit to telemetry for medication optimization and rate control. Continue to hold Digoxin, Will give Digibind if patient develops another episode of arrhythmia. Cardiac cath results pending, await decision on possible cardioversion today, appreciate recs. Expected LOS > 48H. Addendum - Attending - Attending Attestation Date/Time: 07/30/19 [id number] I personally evaluated the patient and discussed the management with Dr. Gross I agree with the History, Examination, Assessment and Plan documented above with any addition or exceptions noted below. Patient for further study with as not able to undergo heart cath, oxygen requirement has gone up and right sided pleural effusion is worse will discuss with Pulmonary regard thoracentesis further imaging.
[2019-07-30] MEDS: Furosemide 40 MG/4 ML VIAL SLOW IVP SCH (06:25)
[2019-07-30 06:47] LABS: #Eosinphils 0.1 thou/uL (0.0-0.7); #Lymphocytes 1.3 thou/uL (1.20-3.40); #Monocytes 0.6 thou/uL (0.11-0.59); #Neutrophils 2.9 thou/uL (1.40-6.50); %Basophils 0.7 % (0.0-1.0); %Eosinophils 1.2 % (0.0-10.0); %Lymphocytes 27.5 % (21.0-51.0); %Monocytes 11.6 % (0.0-10.0); %Neutrophils 58.9 % (42.0-75.0); Mean Corpuscular HGB CONC 32.6 g/dL (32.0-36.0); Mean Platelet Volume 8.7 fL (7.4-10.4); Platelet Count 127 thou/uL (130-400); RBC Distribution Width 13.9 % (11.5-14.5); Red Blood Cell (RBC) Count 4.21 mill/uL (4.20-5.40); White Blood Cell (WBC) Count 4.9 thou/uL (4.8-10.8)
[2019-07-30 07:03] LABS: BUN (Urea Nitrogen) 13 mg/dL (9.8-20.1); Calc. Creatinine Clearance 69 mL/min (70-130); Calcium 8.6 mg/dL (7.8-10.44); Estimated GFR-MDRD 77; Glucose 82 mg/dL (83-110)
[2019-07-30 07:14] LABS: Chloride 90 mmol/L (98-107); Potassium 3.2 mmol/L (3.5-5.1); Sodium 140 mmol/L (136-145)
[2019-07-30 07:17] LABS: Anion Gap 14 mmol/L (10-20); Carbon Dioxide 39 mmol/L (23-31)
[2019-07-30] MEDS: Losartan 25 MG TAB PO SCH (08:29)
[2019-07-30] MEDS: Aspirin 81 mg Enteric Coated Tablet PO SCH (08:29)
[2019-07-30] MEDS: Polyethylene Glycol 3350 17 GM Packet PO SCH (08:29)
[2019-07-30] MEDS: Senokot S 8.6-50 MG TAB PO SCH ×2 (08:32→21:08)
[2019-07-30] MEDS: Ibuprofen 200 MG TAB PO SCH ×2 (08:32→21:07)
[2019-07-30] MEDS: Carvedilol 3.125 MG TAB PO SCH ×2 (08:32→16:08)
--- NOTE | 2019-07-30 09:24 | RAD ---
EXAM: Chest 2 views: HISTORY: Shortness of breath COMPARISON: 07/28/2019 FINDINGS: There is an enlarged but stable cardiomediastinal silhouette. There is a small right pleural effusio n, unchanged. There is no evidence of consolidation, mass, or pleural effusion. The patient has a right shoulder prosthesis. Scoliotic curvature is seen in the spine. IMPRESSION: Stable small right pleural effusion
--- NOTE | 2019-07-30 10:09 | EKG ---
Test Reason : Blood Pressure : / mmHG Vent. Rate : 093 BPM Atrial Rate : 208 BPM P-R Int : 000 ms QRS Dur : 104 ms QT Int : 384 ms P-R-T Axes : 000 069 131 degrees QTc Int : 477 ms Atrial fibrillation Prolonged QT Abnormal ECG Confirmed by NIECY ALARCON MD ([id number]) on 07/30/2019 10:08:56 AM Referred By: MARTÍN *R Confirmed By:NIECY ALARCON MD
--- NOTE | 2019-07-30 12:02 | PDOC.CPN ---
- Subjective Date: 07/30/19 Time: 08:30 Interval history: The pt seen and examined. No overnight events. No cardiac complaints. - Objective Allergies/Adverse Reactions: Allergies Allergy/AdvReac Type Severity Reaction Status Date / Time Penicillins Allergy Verified 07/21/19 21:45 Visit Medications: Current Medications Acetaminophen (Tylenol) 650 mg PO Q4H PRN PRN Reason: Headache/Fever/Mild Pain (1-3) Last Admin: 07/25/19 17:10 Dose: 650 mg Acetaminophen/Codeine Phosphate (Tylenol #3) 1 tab PO Q4H PRN PRN Reason: Mild Pain (1-3) Acetaminophen/Codeine Phosphate (Tylenol #3) 2 tab PO Q4H PRN PRN Reason: Moderate Pain (4-6) Aspirin (Ecotrin) 81 mg PO DAILY [facility] Last Admin: 07/30/19 08:29 Dose: 81 mg Atorvastatin Calcium (Lipitor) 40 mg PO HS [facility] Last Admin: 07/29/19 21:48 Dose: 40 mg Carvedilol (Coreg) 3.125 mg PO BID-WM [facility] Last Admin: 07/30/19 08:32 Dose: 3.125 mg Furosemide (Lasix) 40 mg SLOW IVP 0600 [facility] Last Admin: 07/30/19 06:25 Dose: 40 mg Sodium Chloride (Normal Saline 0.9%) 200 mls @ 0 mls/hr IV ONE PRN PRN Reason: SBP < 90 Stop: 07/30/19 17:19 Ibuprofen (Motrin) 200 mg PO BID [facility] Last Admin: 07/30/19 08:32 Dose: 200 mg Loratadine (Claritin) 10 mg PO DAILYPRN PRN PRN Reason: Allergies Losartan Potassium (Cozaar) 25 mg PO DAILY [facility] Last Admin: 07/30/19 08:29 Dose: 25 mg Menthol/Methyl Salicylate (Muscle Rub Cream (Bengay)) 1 gm TOP QID PRN PRN Reason: Muscle Pain Last Admin: 07/25/19 06:20 Dose: 1 gm Nitroglycerin (Nitrostat) 0.4 mg SL Q5MIN PRN PRN Reason: Chest Pain Ondansetron HCl (Zofran) 4 mg IVP Q6H [facility] Last Admin: 07/30/19 08:33 Dose: Not Given Polyethylene Glycol (Miralax) 17 gm PO DAILY [facility] Last Admin: 07/30/19 08:29 Dose: 17 gm Potassium Chloride (K-Dur) 40 meq PO ONE [facility] Senna/Docusate Sodium (Senokot S) 2 tab PO BID PRN PRN Reason: Constipation Last Admin: 07/24/19 13:29 Dose: 2 tab Senna/Docusate Sodium (Senokot S) 1 tab PO BID [facility] Last Admin: 07/30/19 08:32 Dose: 1 tab Sodium Chloride (Flush - Normal Saline) 10 ml IVF PRN PRN PRN Reason: Saline Flush Last Admin: 07/30/19 08:32 Dose: 10 ml Vital Signs & Weight: Vital Signs Temp Pulse Resp BP Pulse Ox 07/30/19 11:05 98.2 F 82 18 135/60 93 L 07/30/19 07:36 98.1 F 80 16 128/71 93 L 07/30/19 03:40 98.2 F 63 22 H 100/62 96 Admit Weight 162 lb 9 oz Weight 138 lb 11.2 oz - Quality Measures CV meds: Beta Zahida: No (copd), CHEY/ARB: No (renal insuff.) - Physical Exam General: alert & oriented x3 HEENT: mucus membranes moist Neck: supple neck Cardiac: irregularly regular Lungs: decreased breath sounds Abdomen: unremarkable Skin: clear Musculoskeletal: decreased range of motion - Labs Result Diagrams: 07/30/19 06:30 07/30/19 06:30 Troponin/CKMB Troponin I 0.071 ng/mL (< 0.028) H 07/27/19 10:18 - Telemetry Supraventricular conduction: atrial fibrillation - Assessment/Plan Assessment/Plan: 1. CAD with s/p LHC on 07/29/2019 with 90% in prox LAD, 95% in 1st diag, 75% in prox Lt Cx, 75% in prox RCA, 70% in dist RCA, 90% in PDA, 50% in 3rd RPL, and EF 25% - On Coreg, Losartan, ASA, and Statin; Plan for Viability Study on Friday ; 2. New-Onset A-Fib w/ RVR - well controlled HR (holding Digoxin 0.25mg qd 2/2 elevated dig level >3 on 07/28/2019) On Lovenox BID; On Coreg 3.125mg BID; not on Amio or Diltaizem due to hypotension 3. 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 LifeVest at discharge 4 RAUL - stable at this time. 5 HTN - stable with Coreg 3.125mg BID 6. Hx of Rt ICA stenosis 7. Tobacco abuse - smoking cessation advised. 8. N/V. Digoxin level 3.5. hold digoxin and amiodarone. This is likely the etiology of her nausea. If the level does not decrease or increases then digibind may be nec. MARLIN reviewed Pt. seen and eval. by me. I agree with the A/P by the ICT TRAINER. I had a lond discussion with the pt. and her daughter and re-explained the plan and possible options for her CMY and CAD. She is to have a viability study. If the myocardium is viable then consider if she is a candidate for revascularization. High risk due to severe decr. EF and heavy calcium. Chest : rales/rhonchi in the right base. Left clear. Irreg rhythm..
[2019-07-30] MEDS ORDERED: Potassium Chloride 20 MEQ TAB PO SCH (12:15)
[2019-07-30] MEDS: Atorvastatin Calcium 40 MG TAB PO SCH (21:07)
[2019-07-31] MEDS: Ondansetron PF 4 MG/2 ML Vial IVP SCH ×4 (04:12→20:08)
--- NOTE | 2019-07-31 05:36 | PDOC.FM ---
- Subjective Subjective: Pt is doing well without any complaints. She denies chest pain. Denies fever, chills, SOB. - Objective Vital Signs & Weight: Vital Signs (12 hours) Temp Pulse Resp BP Pulse Ox 07/31/19 04:00 97.8 F 90 17 132/60 91 L 07/31/19 01:23 92 L 07/30/19 20:00 93 L 07/30/19 19:30 98.8 F 75 16 127/58 L 87 L Weight Admit Weight 73.737 kg Weight 63.095 kg Most Recent Monitor Data Heart Rate from ECG 84 NIBP 90/54 NIBP BP-Mean 66 Respiration from ECG 21 SpO2 94 I&O: 07/29/19 07/30/19 07/31/19 06:59 06:59 06:59 Intake Total 845 522 7937 Output Total 2000 1000 900 Balance -1040 -520 300 Result Diagrams: 07/31/19 05:15 07/31/19 05:15 Phys Exam - Physical Examination Constitutional: NAD HEENT: PERRLA, moist MMs Neck: no nodes, no JVD Decreased breath sound bibasilar Irregular rate and rhythm Gastrointestinal: soft, non-tender, positive bowel sounds Musculoskeletal: pulses present Neurological: normal sensation, moves all 4 limbs Dx/Plan (1) A-fib Code(s): I48.91 - UNSPECIFIED ATRIAL FIBRILLATION Status: Acute Qualifiers: Atrial fibrillation type: unspecified Qualified Code(s): I48.91 - Unspecified atrial fibrillation (2) CHF (congestive heart failure) Code(s): I50.9 - HEART FAILURE, UNSPECIFIED Status: Acute Qualifiers: Heart failure type: systolic Heart failure chronicity: unspecified Qualified Code(s): I50.20 - Unspecified systolic (congestive) heart failure (3) HTN (hypertension) Code(s): I10 - ESSENTIAL (PRIMARY) HYPERTENSION Status: Acute (4) RAUL (acute kidney injury) Code(s): N17.9 - ACUTE KIDNEY FAILURE, UNSPECIFIED Status: Acute (5) Chronic kidney disease Code(s): N18.9 - CHRONIC KIDNEY DISEASE, UNSPECIFIED Status: Acute (6) Tobacco abuse Code(s): Z72.0 - TOBACCO USE Status: Acute - Plan Plan: Patient is a 74 yo female who presents with weakness and congestion is admitted for new onset A-Fib with RVR and new onset CHF: 1. New-Onset A-Fib w/ RVR - Pt in the IMCU until 07/26/19. She initially was started on cardizem but due to low blood pressures she was switched to amiodarone which was stopped due to low BP's. Dr. Quinones loaded pt with digoxin on 07/22/19. Echo revealed restrictive filling pattern w/ an EF of 15-20%. At this time pt is rate controlled with normotensive BP's this morning. She was transitioned out of IMCU to telemetry on 07/26/19. Blood pressure will need to be monitored as she is diuresed of fluids and may need dobutamine , per Dr. Quinones. BNP 2722 > 860. Dig level 1.75 > 3.15 > 1.60, continue to hold Digoxin per Dr. Quinones. Pt is currently rate controlled without digoxin, amiodarone and receiving carvedilol. BP's have remained stable. Pending viability study. -Cardiac cath performed on 07/[address] Quinones, Myocardial Thallium scan ordered by Dr. Quinones -Anticoagulation Lovenox 70 mg SC once daily, plan to transition to PO today or tomorrow -anti-10a level 1.61 (therapeutic for once daily dosing) -ProCal: negative -Consulted Cardiology, appreciate rec's -patient will need life vest at discharge -continue to hold Digoxin and Amiodarone, the Digoxin may be cause of patient's nausea -transition from IMCU to telemetry on 07/26 2. New-Onset CHF 2/2 CAD -IV Lasix [address] Hills; appreciate rec's -Echo revealed EF 15-20% -HPI and physical exam consistent w/ classic findings of CHF -BNP: 1096 --> 2722 --> 860 (07/27) -Statin therapy started -Heart failure clinic has seen and evaluated patient, per protocol have instructed patient will need follow up with Dr. Quinones within 2 weeks after discharge unless Dr. Quinones desires patient to see HF clinic first, appreciate recs -Patient near euvolemia today, repeat CXR on 07/30 showed stable R pleural effusion - no pocket appreciated for possible thoracentesis on U/S, 07/30 3. Sinusitis -2 week hx of sinus pressure and nasal congestion. Possible illness recent cause for problems above -Hx of smoking. Possibly some underlying COPD. - d/c levequin and start doxycycline (07/22-07/27). -CXR revealed R pleural effusion vs pneumonia. Less likely pneumonia as procal negative but will continue to treat for a total of [address] Hills. -repeat CXR showed continued consolidation in right lower lobe, 07/30 patient with increased O2 requirement up to 3L, repeat CXR revealed stable R pleural effusion 4. RAUL - resolved -Trend AM BMP 5. Hx of HTN -Hasn't been on medication for 10 years. -Normotensive to hypotensive throughout stay -Continue to monitor vitals 6. 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 R ICA Stenosis - started Atorvastatin therapy; aspirin 81 mg 8. Hypokalemia - replete with IV KCl as needed - likely due to decreased PO intake 9. Poor PO Intake - initially thought might improve with BM, but patient has since had 2 moderate BMs - has Zofran available prn - will add on scheduled Zofran q6hr - thought to be due to Digoxin - Dr. Hills recs suggest nausea and decreased appetite due to Depression, can consider starting SSRI as an outpatient if symptoms persist 10. Constipation--resolved -not alleviated with PO Polyethylene glycol. Ordered fleets enema on 07/25. -Patient had 1 BM @ 1700 on 07/25, another 1 BM on 07/26, 2 BMs on 07/27 -continue scheduled PO PEG & Senna Code: FULL Diet: Regular DVT PPx: SCDs & Therapeutic Lovenox Dispo: Stable, admit to telemetry for medication optimization and rate control. Continue to hold Digoxin, Will give Digibind if patient develops another episode of arrhythmia. Cardiac cath results pending, await decision on possible cardioversion today, appreciate recs. Expected LOS > 48H.
[2019-07-31 05:42] LABS: #Basophils 0.1 thou/uL (0.0-0.2); #Eosinphils 0.1 thou/uL (0.0-0.7); #Lymphocytes 1.5 thou/uL (1.20-3.40); #Monocytes 0.7 thou/uL (0.11-0.59); #Neutrophils 4.3 thou/uL (1.40-6.50); %Basophils 0.9 % (0.0-1.0); %Eosinophils 1.5 % (0.0-10.0); %Lymphocytes 22.6 % (21.0-51.0); Hemoglobin 13.2 g/dL (12.0-16.0); Mean Corpuscular HGB CONC 33.7 g/dL (32.0-36.0); Mean Corpuscular Hemoglobin 31.5 pg (27.0-31.0); Mean Corpuscular Volume 93.4 fL (78.0-98.0); Mean Platelet Volume 9.3 fL (7.4-10.4); Platelet Count 133 thou/uL (130-400); RBC Distribution Width 13.7 % (11.5-14.5); Red Blood Cell (RBC) Count 4.18 mill/uL (4.20-5.40); White Blood Cell (WBC) Count 6.7 thou/uL (4.8-10.8)
[2019-07-31 06:04] LABS: BUN (Urea Nitrogen) 14 mg/dL (9.8-20.1); Calc. Creatinine Clearance 72 mL/min (70-130); Estimated GFR-MDRD 82; Glucose 94 mg/dL (83-110)
[2019-07-31] MEDS: Furosemide 40 MG/4 ML VIAL SLOW IVP SCH (06:08)
[2019-07-31 06:13] LABS: Anion Gap 15 mmol/L (10-20); Carbon Dioxide 37 mmol/L (23-31); Chloride 91 mmol/L (98-107); Potassium 3.8 mmol/L (3.5-5.1); Sodium 139 mmol/L (136-145)
[2019-07-31] MEDS: Ibuprofen 200 MG TAB PO SCH ×2 (09:42→20:08)
[2019-07-31] MEDS: Carvedilol 3.125 MG TAB PO SCH ×2 (09:43→16:17)
[2019-07-31] MEDS: Aspirin 81 mg Enteric Coated Tablet PO SCH (09:43)
[2019-07-31] MEDS: Senokot S 8.6-50 MG TAB PO SCH ×2 (09:43→20:07)
[2019-07-31] MEDS: Losartan 25 MG TAB PO SCH (09:43)
[2019-07-31] MEDS: Polyethylene Glycol 3350 17 GM Packet PO SCH (09:44)
--- NOTE | 2019-07-31 14:10 | PDOC.CPN ---
- Subjective Date: 07/31/19 Time: 14:10 Interval history: The pt seen and examined. No overnight events. No cardiac complaints. - Objective Allergies/Adverse Reactions: Allergies Allergy/AdvReac Type Severity Reaction Status Date / Time Penicillins Allergy Verified 07/21/19 21:45 Visit Medications: Current Medications Acetaminophen (Tylenol) 650 mg PO Q4H PRN PRN Reason: Headache/Fever/Mild Pain (1-3) Last Admin: 07/25/19 17:10 Dose: 650 mg Acetaminophen/Codeine Phosphate (Tylenol #3) 1 tab PO Q4H PRN PRN Reason: Mild Pain (1-3) Acetaminophen/Codeine Phosphate (Tylenol #3) 2 tab PO Q4H PRN PRN Reason: Moderate Pain (4-6) Albuterol/Ipratropium (Duoneb) 3 ml NEB Q4H PRN PRN Reason: Dyspnea Aspirin (Ecotrin) 81 mg PO DAILY [facility] Last Admin: 07/31/19 09:43 Dose: 81 mg Atorvastatin Calcium (Lipitor) 40 mg PO HS [facility] Last Admin: 07/30/19 21:07 Dose: 40 mg Carvedilol (Coreg) 3.125 mg PO BID-WM [facility] Last Admin: 07/31/19 09:43 Dose: 3.125 mg Furosemide (Lasix) 40 mg SLOW IVP 0600 [facility] Last Admin: 07/31/19 06:08 Dose: 40 mg Ibuprofen (Motrin) 200 mg PO BID [facility] Last Admin: 07/31/19 09:42 Dose: 200 mg Loratadine (Claritin) 10 mg PO DAILYPRN PRN PRN Reason: Allergies Losartan Potassium (Cozaar) 25 mg PO DAILY [facility] Last Admin: 07/31/19 09:43 Dose: 25 mg Menthol/Methyl Salicylate (Muscle Rub Cream (Bengay)) 1 gm TOP QID PRN PRN Reason: Muscle Pain Last Admin: 07/25/19 06:20 Dose: 1 gm Nitroglycerin (Nitrostat) 0.4 mg SL Q5MIN PRN PRN Reason: Chest Pain Ondansetron HCl (Zofran) 4 mg IVP Q6H [facility] Last Admin: 07/31/19 09:44 Dose: Not Given Polyethylene Glycol (Miralax) 17 gm PO DAILY [facility] Last Admin: 07/31/19 09:44 Dose: Not Given Senna/Docusate Sodium (Senokot S) 2 tab PO BID PRN PRN Reason: Constipation Last Admin: 07/24/19 13:29 Dose: 2 tab Senna/Docusate Sodium (Senokot S) 1 tab PO BID [facility] Last Admin: 07/31/19 09:43 Dose: 1 tab Sodium Chloride (Flush - Normal Saline) 10 ml IVF PRN PRN PRN Reason: Saline Flush Last Admin: 07/30/19 08:32 Dose: 10 ml Vital Signs & Weight: Vital Signs Temp Pulse Resp BP Pulse Ox 07/31/19 13:24 89 16 95 07/31/19 12:00 97.5 F L 89 16 128/64 94 L 07/31/19 07:50 98.3 F 80 17 142/84 H 92 L 07/31/19 04:00 97.8 F 90 17 132/60 91 L Admit Weight 162 lb 9 oz Weight 139 lb 1.6 oz - Quality Measures CV meds: Beta Zahida: No (copd), CHEY/ARB: No (renal insuff.) - Physical Exam General: alert & oriented x3 HEENT: mucus membranes moist Cardiac: irregularly regular Lungs: clear to auscultation, decreased breath sounds Skin: clear Musculoskeletal: decreased range of motion - Labs Result Diagrams: 07/31/19 05:15 07/31/19 05:15 Troponin/CKMB Troponin I 0.071 ng/mL (< 0.028) H 07/27/19 10:18 - Telemetry Supraventricular conduction: atrial fibrillation - Assessment/Plan Assessment/Plan: 1. CAD with s/p LHC on 07/29/2019 with 90% in prox LAD, 95% in 1st diag, 75% in prox Lt Cx, 75% in prox RCA, 70% in dist RCA, 90% in PDA, 50% in 3rd RPL, and EF 25% - On Coreg, Losartan, ASA, and Statin; Plan for Viability Study on Friday ; If the myocardium is viable then consider if she is a candidate for revascularization. High risk due to severe decr. EF and heavy calcium. 2. New-Onset A-Fib w/ RVR - well controlled HR (holding Digoxin 0.25mg qd 2/2 elevated dig level >3 on 07/28/2019) On Lovenox BID; On Coreg 3.125mg BID; not on Amio or Diltaizem due to hypotension 3. 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 LifeVest at discharge 4 RAUL - stable at this time. 5 HTN - stable with Coreg 3.125mg BID 6. Hx of Rt ICA stenosis 7. Tobacco abuse - smoking cessation advised. MARLIN reviewed Pt. seen and eval. by me. I agree with the A/P by the MACHINE TOOL OPERATOR. she says she is feeling very well. Irreg, chest : right basilar rhonchi.. No significant edema. Difficult situation with severe CAD, calcified vessels and severe decr. in LV function.[email or web address]
--- NOTE | 2019-07-31 14:16 | PRG ---
DATE OF SERVICE: 07/31/2019 The patient was seen, evaluated, discussed, and examined with the residents by bedside. This is a 74-year-old with new onset atrial fibrillation with rapid ventricular response, ended up having toxicity on digoxin, although that cleared, but was found to have an extremely low ejection fraction and had a heart catheterization on the , which showed major blockage in almost every artery. Cardiology is involved, talked about doing a viability study, although I am not sure exactly how this can change their management, but currently, she is stable on current medicines thus far and not really complaining much of shortness of breath or too much dyspnea. She has an effusion that has been there for a while on the right side. It sounds like the Cardiology thought perhaps she is a candidate for revascularization, although I am not sure, if they will be talking stents or actual coronary artery bypass graft surgery, but currently, keeping her on the monitor, watching her closely, and gently diuresing her. Job ID: [id number]
[2019-07-31] MEDS: Atorvastatin Calcium 40 MG TAB PO SCH (20:07)
[2019-08-01] MEDS: Ondansetron PF 4 MG/2 ML Vial IVP SCH ×4 (02:39→20:30)
--- NOTE | 2019-08-01 05:35 | PDOC.FM ---
- Subjective Subjective: Pt is doing well w/o any complaints. She denies chest pain, dyspnea, abdominal pain. - Objective Vital Signs & Weight: Vital Signs (12 hours) Temp Pulse Resp BP BP Pulse Ox 08/01/19 04:00 98.7 F 88 16 94/58 L 92 L 08/01/19 02:56 94 L 08/01/19 00:00 107/71 07/31/19 20:00 97.7 F 87 18 100/60 94 L Weight Admit Weight 73.737 kg Weight 63.095 kg Most Recent Monitor Data Heart Rate from ECG 84 NIBP 90/54 NIBP BP-Mean 66 Respiration from ECG 21 SpO2 94 I&O: 07/30/19 07/31/19 08/01/19 06:59 06:59 06:59 Intake Total 480 1200 720 Output Total 1000 900 630 Balance -520 300 90 Result Diagrams: 08/01/19 05:10 08/01/19 05:10 Phys Exam - Physical Examination Constitutional: NAD HEENT: PERRLA, moist MMs Respiratory: no wheezing, no rales, clear to auscultation bilateral Cardiovascular: RRR, no significant murmur Gastrointestinal: soft, non-tender, no distention Musculoskeletal: no edema, pulses present Dx/Plan (1) A-fib Code(s): I48.91 - UNSPECIFIED ATRIAL FIBRILLATION Status: Acute Qualifiers: Atrial fibrillation type: unspecified Qualified Code(s): I48.91 - Unspecified atrial fibrillation (2) CHF (congestive heart failure) Code(s): I50.9 - HEART FAILURE, UNSPECIFIED Status: Acute Qualifiers: Heart failure type: systolic Heart failure chronicity: unspecified Qualified Code(s): I50.20 - Unspecified systolic (congestive) heart failure (3) HTN (hypertension) Code(s): I10 - ESSENTIAL (PRIMARY) HYPERTENSION Status: Acute (4) RAUL (acute kidney injury) Code(s): N17.9 - ACUTE KIDNEY FAILURE, UNSPECIFIED Status: Acute (5) Chronic kidney disease Code(s): N18.9 - CHRONIC KIDNEY DISEASE, UNSPECIFIED Status: Acute (6) Tobacco abuse Code(s): Z72.0 - TOBACCO USE Status: Acute - Plan Plan: Patient is a 74 yo female who presents with weakness and congestion is admitted for new onset A-Fib with RVR and new onset CHF: 1. New-Onset A-Fib w/ RVR - Pt in the IMCU until 07/26/19. She initially was started on cardizem but due to low blood pressures she was switched to amiodarone which was stopped due to low BP's. Dr. Quinones loaded pt with digoxin on 07/22/19. Echo revealed restrictive filling pattern w/ an EF of 15-20%. At this time pt is rate controlled with normotensive BP's this morning. She was transitioned out of IMCU to telemetry on 07/26/19. Blood pressure will need to be monitored as she is diuresed of fluids and may need dobutamine , per Dr. Quinones. BNP 2722 > 860. Dig level 1.75 > 3.15 > 1.60, continue to hold Digoxin per Dr. Quinones. Pt is currently rate controlled without digoxin, amiodarone and receiving carvedilol. BP's have remained stable. Pending viability study. -Cardiac cath performed on 07/[address] Quinones, Myocardial Thallium scan ordered by Dr. Quinones -Anticoagulation Lovenox 70 mg SC once daily, plan to transition to PO today or tomorrow -anti-10a level 1.61 (therapeutic for once daily dosing) -ProCal: negative -Consulted Cardiology, appreciate rec's -patient will need life vest at discharge -continue to hold Digoxin and Amiodarone, the Digoxin may be cause of patient's nausea -transition from IMCU to telemetry on 07/26 2. New-Onset CHF 2/2 CAD -IV Lasix [address] Hills; appreciate rec's -Echo revealed EF 15-20% - HPI and initial physical exam consistent w/ classic findings of CHF -BNP: 1096 --> 2722 --> 860 (07/27) -Statin therapy started -Heart failure clinic has seen and evaluated patient, per protocol have instructed patient will need follow up with Dr. Quinones within 2 weeks after discharge unless Dr. Quinones desires patient to see HF clinic first, appreciate recs - Repeat CXR on 07/30 showed stable R pleural effusion - no pocket appreciated for possible thoracentesis on U/S, 07/30 - 07/31 out/ins +300 mL; BP's running low, will have nursing staff re-check but could potentially be due to euvolemia. Will hold losartan if needed. 3. Sinusitis -2 week hx of sinus pressure and nasal congestion. Possible illness recent cause for problems above -Hx of smoking. Possibly some underlying COPD. - d/c levequin and start doxycycline (07/22-07/27). - Initial CXR revealed R pleural effusion vs pneumonia. Less likely pneumonia as procal negative but will continue to treat for a total of [address] Hills. - Repeat CXR showed continued consolidation in right lower lobe, 07/30 patient with increased O2 requirement up to 3L, repeat CXR revealed stable R pleural effusion. Neg procalcitonin on 07/31 to r/o bacterial pneumonia. 4. RAUL - resolved -Trend AM BMP 5. Hx of HTN -Hasn't been on medication for 10 years. -Normotensive to hypotensive throughout stay; currently on carvedilol, losartan -Continue to monitor vitals 6. Tobacco Abuse -eap counselor smoking cessation 7. R ICA Stenosis - started Atorvastatin therapy; aspirin 81 mg 8. Hypokalemia - replete with IV KCl as needed - likely due to decreased PO intake 9. Poor PO Intake - initially thought might improve with BM, but patient has since had 2 moderate BMs - has Zofran available prn - will add on scheduled Zofran q6hr - thought to be due to Digoxin - Dr. Hills recs suggest nausea and decreased appetite due to Depression, can consider starting SSRI as an outpatient if symptoms persist - 07/31 pt diet fair, drinking supplemental shakes 10. Constipation--resolved -not alleviated with PO Polyethylene glycol. Ordered fleets enema on 07/25. -Patient had 1 BM @ 1700 on 07/25, another 1 BM on 07/26, 2 BMs on 07/27 -continue scheduled PO PEG & Senna Code: FULL Diet: Regular DVT PPx: SCDs & Therapeutic Lovenox Dispo: Stable, admit to telemetry for medication optimization and rate control. Continue to hold Digoxin, Will give Digibind if patient develops another episode of arrhythmia. Patient waiting for reperfusion study on Friday to further guide care.
[2019-08-01 05:51] LABS: #Eosinphils 0.1 thou/uL (0.0-0.7); #Lymphocytes 1.5 thou/uL (1.20-3.40); #Monocytes 0.6 thou/uL (0.11-0.59); %Basophils 0.7 % (0.0-1.0); %Eosinophils 2.1 % (0.0-10.0); %Lymphocytes 24.1 % (21.0-51.0); %Monocytes 9.2 % (0.0-10.0); %Neutrophils 63.9 % (42.0-75.0); Hemoglobin 12.7 g/dL (12.0-16.0); Mean Corpuscular HGB CONC 32.9 g/dL (32.0-36.0); Mean Corpuscular Hemoglobin 30.6 pg (27.0-31.0); Mean Platelet Volume 9.4 fL (7.4-10.4); Platelet Count 157 thou/uL (130-400); RBC Distribution Width 13.7 % (11.5-14.5); Red Blood Cell (RBC) Count 4.16 mill/uL (4.20-5.40); White Blood Cell (WBC) Count 6.2 thou/uL (4.8-10.8)
[2019-08-01 06:03] LABS: BUN (Urea Nitrogen) 13 mg/dL (9.8-20.1); Calc. Creatinine Clearance 73 mL/min (70-130); Calcium 8.8 mg/dL (7.8-10.44); Estimated GFR-MDRD 84; Glucose 94 mg/dL (83-110)
[2019-08-01 06:12] LABS: Anion Gap 12 mmol/L (10-20); Carbon Dioxide 37 mmol/L (23-31); Chloride 92 mmol/L (98-107); Potassium 3.3 mmol/L (3.5-5.1); Sodium 138 mmol/L (136-145)
[2019-08-01] MEDS: Furosemide 40 MG/4 ML VIAL SLOW IVP SCH (06:34)
[2019-08-01 06:55] LABS: Magnesium 1.6 mg/dL (1.6-2.6); Phosphorus 2.4 mg/dL (2.3-4.7)
[2019-08-01] MEDS ORDERED: Potassium Chloride 20 MEQ TAB PO SCH (08:00)
[2019-08-01] MEDS: Polyethylene Glycol 3350 17 GM Packet PO SCH (09:10)
[2019-08-01] MEDS: Losartan 25 MG TAB PO SCH (09:11)
[2019-08-01] MEDS: Senokot S 8.6-50 MG TAB PO SCH ×2 (09:11→20:30)
[2019-08-01] MEDS: Aspirin 81 mg Enteric Coated Tablet PO SCH (09:11)
[2019-08-01] MEDS: Carvedilol 3.125 MG TAB PO SCH ×2 (09:11→16:45)
[2019-08-01] MEDS: Ibuprofen 200 MG TAB PO SCH ×2 (09:12→20:30)
--- NOTE | 2019-08-01 14:16 | PDOC.CPN ---
- Subjective Date: 08/01/19 Time: 14:17 Interval history: The pt seen and examined. No overnight events. No cardiac complaints. - Objective Allergies/Adverse Reactions: Allergies Allergy/AdvReac Type Severity Reaction Status Date / Time Penicillins Allergy Verified 07/21/19 21:45 Visit Medications: Current Medications Acetaminophen (Tylenol) 650 mg PO Q4H PRN PRN Reason: Headache/Fever/Mild Pain (1-3) Last Admin: 07/25/19 17:10 Dose: 650 mg Acetaminophen/Codeine Phosphate (Tylenol #3) 1 tab PO Q4H PRN PRN Reason: Mild Pain (1-3) Acetaminophen/Codeine Phosphate (Tylenol #3) 2 tab PO Q4H PRN PRN Reason: Moderate Pain (4-6) Albuterol/Ipratropium (Duoneb) 3 ml NEB Q4H PRN PRN Reason: Dyspnea Aspirin (Ecotrin) 81 mg PO DAILY [facility] Last Admin: 08/01/19 09:11 Dose: 81 mg Atorvastatin Calcium (Lipitor) 40 mg PO HS [facility] Last Admin: 07/31/19 20:07 Dose: 40 mg Carvedilol (Coreg) 3.125 mg PO BID-WM [facility] Last Admin: 08/01/19 09:11 Dose: 3.125 mg Furosemide (Lasix) 40 mg SLOW IVP 0600 [facility] Last Admin: 08/01/19 06:34 Dose: 40 mg Ibuprofen (Motrin) 200 mg PO BID [facility] Last Admin: 08/01/19 09:12 Dose: 200 mg Loratadine (Claritin) 10 mg PO DAILYPRN PRN PRN Reason: Allergies Losartan Potassium (Cozaar) 25 mg PO DAILY [facility] Last Admin: 08/01/19 09:11 Dose: 25 mg Menthol/Methyl Salicylate (Muscle Rub Cream (Bengay)) 1 gm TOP QID PRN PRN Reason: Muscle Pain Last Admin: 07/25/19 06:20 Dose: 1 gm Nitroglycerin (Nitrostat) 0.4 mg SL Q5MIN PRN PRN Reason: Chest Pain Ondansetron HCl (Zofran) 4 mg IVP Q6H [facility] Last Admin: 08/01/19 09:12 Dose: Not Given Polyethylene Glycol (Miralax) 17 gm PO DAILY [facility] Last Admin: 08/01/19 09:10 Dose: 17 gm Senna/Docusate Sodium (Senokot S) 2 tab PO BID PRN PRN Reason: Constipation Last Admin: 07/24/19 13:29 Dose: 2 tab Senna/Docusate Sodium (Senokot S) 1 tab PO BID [facility] Last Admin: 08/01/19 09:11 Dose: 1 tab Sodium Chloride (Flush - Normal Saline) 10 ml IVF PRN PRN PRN Reason: Saline Flush Last Admin: 08/01/19 09:11 Dose: 10 ml Vital Signs & Weight: Vital Signs Temp Pulse Pulse Pulse Resp BP BP 08/01/19 09:18 98 93 175/71 H 134/89 08/01/19 08:00 08/01/19 07:40 98.8 F 93 16 08/01/19 05:43 08/01/19 04:00 98.7 F 88 16 08/01/19 02:56 BP Pulse Ox Pulse Ox 08/01/19 09:18 90 L 08/01/19 08:00 93 L 08/01/19 07:40 139/60 93 L 08/01/19 05:43 108/52 L 08/01/19 04:00 94/58 L 92 L 08/01/19 02:56 94 L Admit Weight 162 lb 9 oz Weight 136 lb 12.8 oz - Quality Measures CV meds: Beta Zahida: No (copd), CHEY/ARB: No (renal insuff.) - Physical Exam General: alert & oriented x3 HEENT: mucus membranes moist Neck: supple neck Cardiac: irregularly regular Lungs: decreased breath sounds Neuro: cranial nerve 2-12 intact Abdomen: unremarkable Extremities: no cyanosis Skin: clear Musculoskeletal: decreased range of motion - Labs Result Diagrams: 08/01/19 05:10 08/01/19 05:10 Troponin/CKMB Troponin I 0.071 ng/mL (< 0.028) H 07/27/19 10:18 - Telemetry Supraventricular conduction: atrial fibrillation - Assessment/Plan Assessment/Plan: 1. CAD with s/p LHC on 07/29/2019 with 90% in prox LAD, 95% in 1st diag, 75% in prox Lt Cx, 75% in prox RCA, 70% in dist RCA, 90% in PDA, 50% in 3rd RPL, and EF 25% - On Coreg, Losartan, ASA, and Statin; Plan for Viability Study on Friday ; If the myocardium is viable then consider if she is a candidate for revascularization. High risk due to severe decr. EF and heavy calcium. 2. New-Onset A-Fib w/ RVR - well controlled HR (holding Digoxin 0.25mg qd 2/2 elevated dig level >3 on 07/28/2019) On Lovenox BID; On Coreg 3.125mg BID; not on Amio or Diltaizem due to hypotension 3. 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 LifeVest at discharge 4 RAUL - stable at this time. 5 HTN - stable with Coreg 3.125mg BID 6. Hx of Rt ICA stenosis 7. Tobacco abuse - smoking cessation advised. MAR reviewed
[2019-08-01] MEDS: Atorvastatin Calcium 40 MG TAB PO SCH (20:30)
[2019-08-02] MEDS: Ondansetron PF 4 MG/2 ML Vial IVP SCH ×4 (02:48→21:55)
[2019-08-02 05:30] LABS: #Basophils 0.1 thou/uL (0.0-0.2); #Eosinphils 0.2 thou/uL (0.0-0.7); #Lymphocytes 1.9 thou/uL (1.20-3.40); #Monocytes 0.7 thou/uL (0.11-0.59); #Neutrophils 3.3 thou/uL (1.40-6.50); %Eosinophils 3.1 % (0.0-10.0); %Lymphocytes 30.5 % (21.0-51.0); %Monocytes 10.9 % (0.0-10.0); %Neutrophils 54.5 % (42.0-75.0); Mean Corpuscular HGB CONC 32.4 g/dL (32.0-36.0); Mean Corpuscular Hemoglobin 30.1 pg (27.0-31.0); Mean Corpuscular Volume 92.8 fL (78.0-98.0); Mean Platelet Volume 8.8 fL (7.4-10.4); Platelet Count 195 thou/uL (130-400); RBC Distribution Width 13.9 % (11.5-14.5); Red Blood Cell (RBC) Count 4.31 mill/uL (4.20-5.40); White Blood Cell (WBC) Count 6.1 thou/uL (4.8-10.8)
--- NOTE | 2019-08-02 05:45 | PDOC.FM ---
- Subjective Subjective: Patient had cardiac viability scan completed this morning, results pending. Patient has no complaints this morning. Says her appetite is okay, is drinking Boost shakes and eating fruit, otherwise no other solid foods. Still has non- productive cough but states it does not bother her. - Objective MAR Reviewed: Yes Vital Signs & Weight: Vital Signs (12 hours) Temp Pulse Resp BP Pulse Ox 08/02/19 04:00 98.1 F 94 14 99/61 93 L 08/01/19 20:00 98.2 F 89 18 107/66 92 L Weight Admit Weight 73.737 kg Weight 62.051 kg Most Recent Monitor Data Heart Rate from ECG 84 NIBP 90/54 NIBP BP-Mean 66 Respiration from ECG 21 SpO2 94 I&O: 07/31/19 08/01/19 08/02/19 06:59 06:59 06:59 Intake Total 1200 1070 170 Output Total 900 1480 900 Balance 300 410 730 Result Diagrams: 08/02/19 05:04 08/02/19 05:04 Phys Exam - Physical Examination Constitutional: NAD HEENT: moist MMs, sclera anicteric Neck: no JVD, supple, full ROM Respiratory: no wheezing, no rhonchi, clear to auscultation bilateral decreased breath sounds in right lung base posteriorly Cardiovascular: RRR, no significant murmur Gastrointestinal: soft, non-tender, positive bowel sounds Musculoskeletal: pulses present trace edema in bilateral LE Neurological: normal sensation, moves all 4 limbs Psychiatric: normal affect, A&O x 3 Skin: no rash, normal turgor Dx/Plan (1) A-fib Code(s): I48.91 - UNSPECIFIED ATRIAL FIBRILLATION Status: Acute Qualifiers: Atrial fibrillation type: unspecified Qualified Code(s): I48.91 - Unspecified atrial fibrillation (2) RAUL (acute kidney injury) Code(s): N17.9 - ACUTE KIDNEY FAILURE, UNSPECIFIED Status: Acute (3) CHF (congestive heart failure) Code(s): I50.9 - HEART FAILURE, UNSPECIFIED Status: Acute Qualifiers: Heart failure type: systolic Heart failure chronicity: unspecified Qualified Code(s): I50.20 - Unspecified systolic (congestive) heart failure (4) Tobacco abuse Code(s): Z72.0 - TOBACCO USE Status: Acute - Plan Plan: Patient is a 74 yo female who presents with weakness and congestion is admitted for new onset A-Fib with RVR and new onset CHF: 1. New-Onset A-Fib w/ RVR - Pt in the IMCU until 07/26/19. She initially was started on cardizem but due to low blood pressures she was switched to amiodarone which was stopped due to low BP's. Dr. Quinones loaded pt with digoxin on 07/22/19. Echo revealed restrictive filling pattern w/ an EF of 15-20%. At this time pt is rate controlled with normotensive BP's this morning. She was transitioned out of IMCU to telemetry on 07/26/19. Blood pressure will need to be monitored as she is diuresed of fluids and may need dobutamine , per Dr. Quinones. BNP 2722 > 860. Dig level 1.75 > 3.15 > 1.60, continue to hold Digoxin per Dr. Quinones. Pt is currently rate controlled without digoxin, amiodarone and receiving carvedilol. BP's have remained stable. Pending cardiac viability study and decision on possible CABG. -Cardiac cath performed on 07/[address] Quinones, Myocardial Thallium scan ordered by Dr. Quinones for today -Anticoagulation Lovenox 70 mg SC once daily -anti-10a level 1.61 (therapeutic for once daily dosing) -ProCal: negative -Consulted Cardiology-Dr. Quinones, appreciate rec's -patient will need life vest at discharge -continue to hold Digoxin and Amiodarone, the Digoxin may be cause of patient's nausea -transition from IMCU to telemetry on 07/26 2. New-Onset CHF 2/2 CAD -IV Lasix [address] Hills; appreciate rec's -Echo revealed EF 15-20% - HPI and initial physical exam consistent w/ classic findings of CHF -BNP: 1096 --> 2722 --> 860 (07/27) -Statin therapy started -Heart failure clinic has seen and evaluated patient, per protocol have instructed patient will need follow up with Dr. Quinones within 2 weeks after discharge unless Dr. Quinones desires patient to see HF clinic first, appreciate recs - Repeat CXR on 07/30 showed stable R pleural effusion - no pocket appreciated for possible thoracentesis on U/S, 07/30 - 07/31 out/ins +300 mL; BP's running low, will have nursing staff re-check but could potentially be due to euvolemia. Will hold losartan if needed. - consider Chest CT of R pleural effusion 3. Sinusitis -2 week hx of sinus pressure and nasal congestion. Possible illness recent cause for problems above -Hx of smoking. Possibly some underlying COPD. - d/c levaquin and start doxycycline (07/22-07/27). - Initial CXR revealed R pleural effusion vs pneumonia. Less likely pneumonia as procal negative but will continue to treat for a total of [address] Hills. - Repeat CXR showed continued consolidation in right lower lobe, 07/30 patient with increased O2 requirement up to 3L, repeat CXR revealed stable R pleural effusion. Neg procalcitonin on 07/31 to r/o bacterial pneumonia. 4. RAUL - resolved -Trend AM BMP 5. Hx of HTN -Hasn't been on medication for 10 years. -Normotensive to hypotensive throughout stay; currently on carvedilol, losartan -Continue to monitor vitals 6. Tobacco Abuse -quitline counselor smoking cessation 7. R ICA Stenosis - started Atorvastatin therapy; aspirin 81 mg 8. Hypokalemia - replete with IV KCl as needed - likely due to decreased PO intake 9. Poor PO Intake - initially thought might improve with BM, but patient has since had 2 moderate BMs - has Zofran available prn - will add on scheduled Zofran q6hr - thought to be due to Digoxin - Dr. Hills recs suggest nausea and decreased appetite due to Depression, can consider starting SSRI as an outpatient if symptoms persist - 07/31 pt diet fair, drinking supplemental shakes 10. Constipation--resolved -not alleviated with PO Polyethylene glycol. Ordered fleets enema on 07/25. -Patient had 1 BM @ 1700 on 07/25, another 1 BM on 07/26, 2 BMs on 07/27 -continue scheduled PO PEG & Senna Code: FULL Diet: Regular DVT PPx: SCDs & Therapeutic Lovenox Dispo: Stable, admit to telemetry for medication optimization and rate control. Continue to hold Digoxin, Will give Digibind if patient develops another episode of arrhythmia. Patient waiting for cardiac viability study today to further guide care.
[2019-08-02 05:53] LABS: Anion Gap 13 mmol/L (10-20); BUN (Urea Nitrogen) 15 mg/dL (9.8-20.1); Calc. Creatinine Clearance 69 mL/min (70-130); Carbon Dioxide 33 mmol/L (23-31); Chloride 94 mmol/L (98-107); Estimated GFR-MDRD 80; Glucose 96 mg/dL (83-110); Potassium 3.5 mmol/L (3.5-5.1); Sodium 136 mmol/L (136-145)
[2019-08-02] MEDS: Furosemide 40 MG/4 ML VIAL SLOW IVP SCH (06:32)
[2019-08-02] MEDS: Aspirin 81 mg Enteric Coated Tablet PO SCH (09:27)
[2019-08-02] MEDS: Polyethylene Glycol 3350 17 GM Packet PO SCH (09:27)
[2019-08-02] MEDS: Losartan 25 MG TAB PO SCH (09:27)
[2019-08-02] MEDS: Ibuprofen 200 MG TAB PO SCH ×2 (09:27→21:57)
[2019-08-02] MEDS: Senokot S 8.6-50 MG TAB PO SCH ×2 (09:27→21:57)
[2019-08-02] MEDS: Carvedilol 3.125 MG TAB PO SCH ×2 (09:28→16:30)
--- NOTE | 2019-08-02 10:23 | CON ---
DATE OF CONSULTATION: No major changes. Severe numerous vessel coronary artery disease. New onset atrial fibrillation with rapid ventricular response that has been fairly well controlled. Had a little wheezing today, smoker, that is possibly developing little bronchitis type issues. Plan is for her to get a viability study for Cardiology tomorrow to see if she is a candidate for revascularization or not and will probably going to be needing a LifeVest when she goes home as well. No changes in medications are planned until we get this study done tomorrow. Job ID: [id number]
--- NOTE | 2019-08-02 10:43 | PDOC.CPN ---
- Subjective Date: 08/02/19 Time: 08:30 Interval history: The pt seen and examined.l No overnight night events. NO cardiac complaints. - Objective Allergies/Adverse Reactions: Allergies Allergy/AdvReac Type Severity Reaction Status Date / Time Penicillins Allergy Verified 07/21/19 21:45 Visit Medications: Current Medications Acetaminophen (Tylenol) 650 mg PO Q4H PRN PRN Reason: Headache/Fever/Mild Pain (1-3) Last Admin: 07/25/19 17:10 Dose: 650 mg Acetaminophen/Codeine Phosphate (Tylenol #3) 1 tab PO Q4H PRN PRN Reason: Mild Pain (1-3) Acetaminophen/Codeine Phosphate (Tylenol #3) 2 tab PO Q4H PRN PRN Reason: Moderate Pain (4-6) Albuterol/Ipratropium (Duoneb) 3 ml NEB Q4H PRN PRN Reason: Dyspnea Aspirin (Ecotrin) 81 mg PO DAILY [facility] Last Admin: 08/02/19 09:27 Dose: 81 mg Atorvastatin Calcium (Lipitor) 40 mg PO HS [facility] Last Admin: 08/01/19 20:30 Dose: 40 mg Carvedilol (Coreg) 3.125 mg PO BID-WM [facility] Last Admin: 08/02/19 09:28 Dose: 3.125 mg Furosemide (Lasix) 40 mg SLOW IVP 0600 [facility] Last Admin: 08/02/19 06:32 Dose: 40 mg Ibuprofen (Motrin) 200 mg PO BID [facility] Last Admin: 08/02/19 09:27 Dose: 200 mg Loratadine (Claritin) 10 mg PO DAILYPRN PRN PRN Reason: Allergies Losartan Potassium (Cozaar) 25 mg PO DAILY [facility] Last Admin: 08/02/19 09:27 Dose: 25 mg Menthol/Methyl Salicylate (Muscle Rub Cream (Bengay)) 1 gm TOP QID PRN PRN Reason: Muscle Pain Last Admin: 07/25/19 06:20 Dose: 1 gm Nitroglycerin (Nitrostat) 0.4 mg SL Q5MIN PRN PRN Reason: Chest Pain Ondansetron HCl (Zofran) 4 mg IVP Q6H [facility] Last Admin: 08/02/19 09:28 Dose: Not Given Polyethylene Glycol (Miralax) 17 gm PO DAILY [facility] Last Admin: 08/02/19 09:27 Dose: 17 gm Senna/Docusate Sodium (Senokot S) 2 tab PO BID PRN PRN Reason: Constipation Last Admin: 07/24/19 13:29 Dose: 2 tab Senna/Docusate Sodium (Senokot S) 1 tab PO BID [facility] Last Admin: 08/02/19 09:27 Dose: 1 tab Sodium Chloride (Flush - Normal Saline) 10 ml IVF PRN PRN PRN Reason: Saline Flush Last Admin: 08/01/19 09:11 Dose: 10 ml Vital Signs & Weight: Vital Signs Temp Pulse Resp BP Pulse Ox 08/02/19 08:47 97.4 F L 115 H 18 111/75 96 08/02/19 04:00 98.1 F 94 14 99/61 93 L Admit Weight 162 lb 9 oz Weight 136 lb 12.8 oz - Quality Measures CV meds: Beta Zahida: No (copd), CHEY/ARB: No (renal insuff.) - Physical Exam General: alert & oriented x3 HEENT: mucus membranes moist Neck: supple neck Cardiac: irregularly regular Lungs: decreased breath sounds Neuro: cranial nerve 2-12 intact Skin: clear Musculoskeletal: decreased range of motion - Labs Result Diagrams: 08/02/19 05:04 08/02/19 05:04 Troponin/CKMB Troponin I 0.071 ng/mL (< 0.028) H 07/27/19 10:18 - Telemetry Supraventricular conduction: atrial fibrillation - Assessment/Plan Assessment/Plan: 1. CAD with s/p LHC on 07/29/2019 with 90% in prox LAD, 95% in 1st diag, 75% in prox Lt Cx, 75% in prox RCA, 70% in dist RCA, 90% in PDA, 50% in 3rd RPL, and EF 25% - On Coreg, Losartan, ASA, and Statin; Had Viability Study today and the result is pending; If the myocardium is viable then consider if she is a candidate for revascularization. High risk due to severe decr. EF and heavy calcium. 2. New-Onset A-Fib w/ RVR - well controlled HR (holding Digoxin 0.25mg qd 2/2 elevated dig level >3 on 07/28/2019) On Lovenox BID; On Coreg 3.125mg BID; not on Amio or Diltaizem due to hypotension 3. 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 LifeVest at discharge 4 RAUL - stable at this time. 5 HTN - stable with Coreg 3.125mg BID 6. Hx of Rt ICA stenosis 7. Tobacco abuse - smoking cessation advised. MAR reviewed Pt. seen and eval. by me. I agree with the A/P by the barrel raiser. She is feeling better. No edema, chest still has scattered rhonchi in the right base.
--- NOTE | 2019-08-02 11:43 | PDOC.CPN ---
- Subjective Interval history: The pt seen and examined.l No overnight night events. NO cardiac complaints. - Objective Allergies/Adverse Reactions: Allergies Allergy/AdvReac Type Severity Reaction Status Date / Time Penicillins Allergy Verified 07/21/19 21:45 Visit Medications: Current Medications Acetaminophen (Tylenol) 650 mg PO Q4H PRN PRN Reason: Headache/Fever/Mild Pain (1-3) Last Admin: 07/25/19 17:10 Dose: 650 mg Acetaminophen/Codeine Phosphate (Tylenol #3) 1 tab PO Q4H PRN PRN Reason: Mild Pain (1-3) Acetaminophen/Codeine Phosphate (Tylenol #3) 2 tab PO Q4H PRN PRN Reason: Moderate Pain (4-6) Albuterol/Ipratropium (Duoneb) 3 ml NEB Q4H PRN PRN Reason: Dyspnea Aspirin (Ecotrin) 81 mg PO DAILY [facility] Last Admin: 08/02/19 09:27 Dose: 81 mg Atorvastatin Calcium (Lipitor) 40 mg PO HS [facility] Last Admin: 08/01/19 20:30 Dose: 40 mg Carvedilol (Coreg) 3.125 mg PO BID-[facility] Last Admin: 08/02/19 09:28 Dose: 3.125 mg Furosemide (Lasix) 40 mg SLOW IVP 0600 [facility] Last Admin: 08/02/19 06:32 Dose: 40 mg Ibuprofen (Motrin) 200 mg PO BID [facility] Last Admin: 08/02/19 09:27 Dose: 200 mg Loratadine (Claritin) 10 mg PO DAILYPRN PRN PRN Reason: Allergies Losartan Potassium (Cozaar) 25 mg PO DAILY [facility] Last Admin: 08/02/19 09:27 Dose: 25 mg Menthol/Methyl Salicylate (Muscle Rub Cream (Bengay)) 1 gm TOP QID PRN PRN Reason: Muscle Pain Last Admin: 07/25/19 06:20 Dose: 1 gm Nitroglycerin (Nitrostat) 0.4 mg SL Q5MIN PRN PRN Reason: Chest Pain Ondansetron HCl (Zofran) 4 mg IVP Q6H [facility] Last Admin: 08/02/19 09:28 Dose: Not Given Polyethylene Glycol (Miralax) 17 gm PO DAILY [facility] Last Admin: 08/02/19 09:27 Dose: 17 gm Senna/Docusate Sodium (Senokot S) 2 tab PO BID PRN PRN Reason: Constipation Last Admin: 07/24/19 13:29 Dose: 2 tab Senna/Docusate Sodium (Senokot S) 1 tab PO BID [facility] Last Admin: 08/02/19 09:27 Dose: 1 tab Sodium Chloride (Flush - Normal Saline) 10 ml IVF PRN PRN PRN Reason: Saline Flush Last Admin: 08/01/19 09:11 Dose: 10 ml Vital Signs & Weight: Vital Signs Temp Pulse Resp BP Pulse Ox 08/02/19 08:47 97.4 F L 115 H 18 111/75 96 08/02/19 04:00 98.1 F 94 14 99/61 93 L Admit Weight 162 lb 9 oz Weight 136 lb 12.8 oz - Quality Measures CV meds: Beta Zahida: No (copd), CHEY/ARB: No (renal insuff.) - Labs Result Diagrams: 08/02/19 05:04 08/02/19 05:04 Troponin/CKMB Troponin I 0.071 ng/mL (< 0.028) H 07/27/19 10:18
--- NOTE | 2019-08-02 12:29 | PRG ---
DATE OF SERVICE: 08/02/2019 Ms. Augustin had a cath earlier this week and was noted to have severe multivessel coronary artery disease. She is currently undergoing a Myoview test to check for viable myocardium. Subsequent to this test, she may be a candidate for CABG. We will continue to follow with Cardiology. Job ID: [id number]
[2019-08-02] MEDS: Atorvastatin Calcium 40 MG TAB PO SCH (21:57)
[2019-08-03] MEDS: Ondansetron PF 4 MG/2 ML Vial IVP SCH ×4 (03:06→20:27)
[2019-08-03] MEDS: Furosemide 40 MG/4 ML VIAL SLOW IVP SCH (05:28)
--- NOTE | 2019-08-03 06:19 | PDOC.FM ---
- Subjective Subjective: Patient is slowly regaining some of her appetite. She is drinking Boost shakes for meals. Still not eating much solid food besides fruit. Denies any pain. Still has non-productive cough. - Objective MAR Reviewed: Yes Vital Signs & Weight: Vital Signs (12 hours) Temp Pulse Resp BP BP Pulse Ox 08/03/19 04:00 98.1 F 92 20 99/65 93 L 08/02/19 23:53 99.0 F 84 16 80/55 L 95 08/02/19 21:40 92 L Weight Admit Weight 73.737 kg Weight 62.051 kg Most Recent Monitor Data Heart Rate from ECG 84 NIBP 90/54 NIBP BP-Mean 66 Respiration from ECG 21 SpO2 94 I&O: 08/01/19 08/02/19 08/03/19 06:59 06:59 06:59 Intake Total 1070 170 720 Output Total 1480 900 420 Balance -410 -730 300 Result Diagrams: 08/02/19 05:04 08/03/19 06:20 Phys Exam - Physical Examination Constitutional: NAD HEENT: moist MMs, sclera anicteric Neck: no JVD, supple, full ROM Respiratory: no wheezing, clear to auscultation bilateral Decreased breath sounds in right lower lobe posteriorly Cardiovascular: RRR, no significant murmur Gastrointestinal: soft, non-tender, positive bowel sounds Musculoskeletal: no edema, pulses present Neurological: normal sensation, moves all 4 limbs Psychiatric: normal affect, A&O x 3 Skin: no rash, normal turgor Dx/Plan (1) A-fib Code(s): I48.91 - UNSPECIFIED ATRIAL FIBRILLATION Status: Acute Qualifiers: Atrial fibrillation type: unspecified Qualified Code(s): I48.91 - Unspecified atrial fibrillation (2) RAUL (acute kidney injury) Code(s): N17.9 - ACUTE KIDNEY FAILURE, UNSPECIFIED Status: Acute (3) CHF (congestive heart failure) Code(s): I50.9 - HEART FAILURE, UNSPECIFIED Status: Acute Qualifiers: Heart failure type: systolic Heart failure chronicity: unspecified Qualified Code(s): I50.20 - Unspecified systolic (congestive) heart failure (4) Tobacco abuse Code(s): Z72.0 - TOBACCO USE Status: Acute - Plan Plan: Patient is a 74 yo female who presents with weakness and congestion is admitted for new onset A-Fib with RVR and new onset CHF: 1. New-Onset A-Fib w/ RVR - Pt in the IMCU until 07/26/19. She initially was started on cardizem but due to low blood pressures she was switched to amiodarone which was stopped due to low BP's. Dr. Quinones loaded pt with digoxin on 07/22/19. Echo revealed restrictive filling pattern w/ an EF of 15-20%. At this time pt is rate controlled with normotensive BP's this morning. She was transitioned out of IMCU to telemetry on 07/26/19. Blood pressure will need to be monitored as she is diuresed of fluids and may need dobutamine , per Dr. Quinones. BNP 2722 > 860. Dig level 1.75 > 3.15 > 1.60, continue to hold Digoxin per Dr. Quinones. Pt is currently rate controlled without digoxin, amiodarone and receiving carvedilol. BP's have remained stable. Pending cardiac viability study results and decision on possible CABG. -Cardiac cath performed on 07/[address] Quinones, Myocardial Thallium scan ordered by Dr. Quinones with results pending. -Anticoagulation Lovenox 70 mg SC once daily -anti-10a level 1.61 (therapeutic for once daily dosing) -ProCal: negative -Consulted Cardiology-Dr. Quinones, appreciate rec's -patient will need life vest at discharge -continue to hold Digoxin and Amiodarone, the Digoxin may be cause of patient's nausea -transition from IMCU to telemetry on 07/26 2. New-Onset CHF 2/2 CAD -IV Lasix [address] Hills; appreciate rec's -Echo revealed EF 15-20% - HPI and initial physical exam consistent w/ classic findings of CHF -BNP: 1096 --> 2722 --> 860 (07/27) -Statin therapy started -Heart failure clinic has seen and evaluated patient, per protocol have instructed patient will need follow up with Dr. Quinones within 2 weeks after discharge unless Dr. Quinones desires patient to see HF clinic first, appreciate recs - Repeat CXR on 07/30 showed stable R pleural effusion - no pocket appreciated for possible thoracentesis on U/S, 07/30 - 07/31 patient near euvolemia, last 2 BPs have been low, will continue to monitor. Will hold losartan if needed. - consider Chest CT of R pleural effusion if respiratory status worsens 3. Sinusitis -2 week hx of sinus pressure and nasal congestion. Possible illness recent cause for problems above -Hx of smoking. Possibly some underlying COPD. - d/c levaquin and start doxycycline (07/22-07/27). - Initial CXR revealed R pleural effusion vs pneumonia. Less likely pneumonia as procal negative but will continue to treat for a total of [address] Hills. - Repeat CXR showed continued consolidation in right lower lobe, 07/30 patient with increased O2 requirement up to 3L, repeat CXR revealed stable R pleural effusion. Neg procalcitonin on 07/31 to r/o bacterial pneumonia. O2 requirement has continued to fluctuate between 1-3L. 4. RAUL - resolved -Trend AM BMP 5. Hx of HTN -Hasn't been on medication for 10 years. -Normotensive to hypotensive throughout stay; currently on carvedilol, losartan -Continue to monitor vitals 6. Tobacco Abuse -family service counselor smoking cessation 7. R ICA Stenosis - started Atorvastatin therapy; aspirin 81 mg 8. Hypokalemia - replete with IV KCl as needed - likely due to decreased PO intake 9. Poor PO Intake - initially thought might improve with BM, but patient has since had 2 moderate BMs - has Zofran available prn - will add on scheduled Zofran q6hr - thought to be due to Digoxin - Dr. Hills recs suggest nausea and decreased appetite due to Depression, can consider starting SSRI as an outpatient if symptoms persist - 07/31 pt diet fair, drinking supplemental shakes 10. Constipation--resolved -not alleviated with PO Polyethylene glycol. Ordered fleets enema on 07/25. -Patient had 1 BM @ 1700 on 07/25, another 1 BM on 07/26, 2 BMs on 07/27 -continue scheduled PO PEG & Senna Code: FULL Diet: Regular DVT PPx: SCDs & Therapeutic Lovenox Dispo: Stable, admit to telemetry for medication optimization and rate control. Patient waiting for cardiac viability study results today to further guide care. Anticipate discharge in >48 hours.
[2019-08-03 06:52] LABS: Anion Gap 17 mmol/L (10-20); BUN (Urea Nitrogen) 14 mg/dL (9.8-20.1); Calc. Creatinine Clearance 60 mL/min (70-130); Calcium 9.5 mg/dL (7.8-10.44); Carbon Dioxide 31 mmol/L (23-31); Chloride 93 mmol/L (98-107); Estimated GFR-MDRD 68; Glucose 93 mg/dL (83-110); Potassium 3.9 mmol/L (3.5-5.1); Sodium 137 mmol/L (136-145)
[2019-08-03] MEDS: Ibuprofen 200 MG TAB PO SCH ×2 (08:06→20:29)
[2019-08-03] MEDS: Aspirin 81 mg Enteric Coated Tablet PO SCH (08:06)
[2019-08-03] MEDS: Senokot S 8.6-50 MG TAB PO SCH ×2 (08:07→20:29)
[2019-08-03] MEDS: Polyethylene Glycol 3350 17 GM Packet PO SCH (08:07)
--- NOTE | 2019-08-03 09:28 | NM ---
Radionucleotide myocardial thallium scan for viability HISTORY: Severe vascular disease. Myocardial infarction. FINDINGS: Patient was dosed with 3.7 mCi thallium-201. Imaging performed at 15 minutes and 24 hours. Immediate images show a moderate sized area of markedly diminished thallium uptake at the inferior wa ll and apex. On the 24-hour delayed images, there is no improvement in thallium uptake. In fact, uptake has decreased slightly, likely related to radioactive decay and windowing of the images. IMPRESSION: Nonviable myocardial scar at the left ventricular inferior wall and apex.
[2019-08-03] MEDS: Carvedilol 3.125 MG TAB PO SCH ×2 (10:22→17:28)
[2019-08-03] MEDS: Losartan 25 MG TAB PO SCH (10:22)
[2019-08-03 10:29] LABS: #Basophils 0.1 thou/uL (0.0-0.2); #Eosinphils 0.1 thou/uL (0.0-0.7); #Lymphocytes 1.6 thou/uL (1.20-3.40); #Monocytes 0.7 thou/uL (0.11-0.59); #Neutrophils 5.8 thou/uL (1.40-6.50); %Basophils 1.1 % (0.0-1.0); %Eosinophils 1.4 % (0.0-10.0); %Lymphocytes 18.8 % (21.0-51.0); %Monocytes 8.6 % (0.0-10.0); %Neutrophils 70.1 % (42.0-75.0); Hemoglobin 14.5 g/dL (12.0-16.0); Mean Corpuscular Hemoglobin 30.6 pg (27.0-31.0); Mean Corpuscular Volume 92.6 fL (78.0-98.0); Mean Platelet Volume 8.5 fL (7.4-10.4); Platelet Count 293 thou/uL (130-400); RBC Distribution Width 13.8 % (11.5-14.5); Red Blood Cell (RBC) Count 4.75 mill/uL (4.20-5.40); White Blood Cell (WBC) Count 8.3 thou/uL (4.8-10.8)
--- NOTE | 2019-08-03 11:01 | PRG ---
DATE OF SERVICE: 08/03/2019 Ms. Augustin's nuclear medicine report does show nonviable myocardial scar at the left ventricular inferior wall and apex. Cardiology will now determine whether or not the patient will go for a CABG or continue medical therapy for her significant heart failure. Job ID: [id number]
[2019-08-03] MEDS: Atorvastatin Calcium 40 MG TAB PO SCH (20:29)
--- NOTE | 2019-08-03 20:36 | PDOC.CPN ---
- Subjective Date: 08/03/19 Time: 18:00 - Review of Systems General: reports: fatigue Respiratory: denies: cough, congestion, shortness of breath Cardiovascular: denies: chest pain, palpitation, edema Gastrointestinal: denies: nausea, vomiting, abd pain Musculoskeletal: denies: swelling Neurological: denies: numbness - Objective Allergies/Adverse Reactions: Allergies Allergy/AdvReac Type Severity Reaction Status Date / Time Penicillins Allergy Verified 07/21/19 21:45 Visit Medications: Current Medications Acetaminophen (Tylenol) 650 mg PO Q4H PRN PRN Reason: Headache/Fever/Mild Pain (1-3) Last Admin: 07/25/19 17:10 Dose: 650 mg Acetaminophen/Codeine Phosphate (Tylenol #3) 1 tab PO Q4H PRN PRN Reason: Mild Pain (1-3) Acetaminophen/Codeine Phosphate (Tylenol #3) 2 tab PO Q4H PRN PRN Reason: Moderate Pain (4-6) Albuterol/Ipratropium (Duoneb) 3 ml NEB Q4H PRN PRN Reason: Dyspnea Aspirin (Ecotrin) 81 mg PO DAILY [facility] Last Admin: 08/03/19 08:06 Dose: 81 mg Atorvastatin Calcium (Lipitor) 40 mg PO HS [facility] Last Admin: 08/03/19 20:29 Dose: 40 mg Carvedilol (Coreg) 3.125 mg PO BID-[facility] Last Admin: 08/03/19 17:28 Dose: 3.125 mg Furosemide (Lasix) 40 mg SLOW IVP 0600 [facility] Last Admin: 08/03/19 05:28 Dose: 40 mg Ibuprofen (Motrin) 200 mg PO BID [facility] Last Admin: 08/03/19 20:29 Dose: 200 mg Loratadine (Claritin) 10 mg PO DAILYPRN PRN PRN Reason: Allergies Losartan Potassium (Cozaar) 25 mg PO DAILY [facility] Last Admin: 08/03/19 10:22 Dose: 25 mg Menthol/Methyl Salicylate (Muscle Rub Cream (Bengay)) 1 gm TOP QID PRN PRN Reason: Muscle Pain Last Admin: 07/25/19 06:20 Dose: 1 gm Nitroglycerin (Nitrostat) 0.4 mg SL Q5MIN PRN PRN Reason: Chest Pain Ondansetron HCl (Zofran) 4 mg IVP Q6H [facility] Last Admin: 08/03/19 20:27 Dose: Not Given Polyethylene Glycol (Miralax) 17 gm PO DAILY [facility] Last Admin: 08/03/19 08:07 Dose: 17 gm Senna/Docusate Sodium (Senokot S) 2 tab PO BID PRN PRN Reason: Constipation Last Admin: 07/24/19 13:29 Dose: 2 tab Senna/Docusate Sodium (Senokot S) 1 tab PO BID [facility] Last Admin: 08/03/19 20:29 Dose: Not Given Sodium Chloride (Flush - Normal Saline) 10 ml IVF PRN PRN PRN Reason: Saline Flush Last Admin: 08/01/19 09:11 Dose: 10 ml Vital Signs & Weight: Vital Signs Temp Pulse Resp BP BP Pulse Ox 08/03/19 19:36 98.3 F 80 16 139/66 99 08/03/19 16:36 97.9 F 90 17 136/73 96 08/03/19 11:54 97.9 F 108 H 16 158/66 H 96 08/03/19 10:25 133 H 17 170/68 H Admit Weight 162 lb 9 oz Weight 135 lb 11.2 oz - Quality Measures CV meds: Beta Zahida: Yes (copd), CHEY/ARB: Yes (renal insuff.), Statin: Yes, ASA: Yes - Physical Exam General: no apparent distress HEENT: normocephaly Neck: no JVD/HJR Cardiac: irregularly regular Lungs: scattered rhonchi Neuro: grossly intact Abdomen: unremarkable Extremities: no edema (the left basilar rhonchi resolve with coughing.) - Labs Result Diagrams: 08/03/19 10:15 08/03/19 06:20 Troponin/CKMB Troponin I 0.071 ng/mL (< 0.028) H 07/27/19 10:18 - Assessment/Plan Assessment/Plan: 1. CAD with s/p LHC on 07/29/2019 with 90% in prox LAD, 95% in 1st diag, 75% in prox Lt Cx, 75% in prox RCA, 70% in dist RCA, 90% in PDA, 50% in 3rd RPL, and EF 25% - On Coreg, Losartan, ASA, and Statin; Had Viability Study today and the results indicate no viabilty in the inferior wall. I will ask the CV surgeons to review the films to see if she is a candidate for revascularization. High risk due to severe decr. EF and heavy calcium. 2. New-Onset A-Fib w/ RVR - well controlled HR (holding Digoxin 0.25mg qd 2/2 elevated dig level >3 on 07/28/2019) start Eliquis BID; On Coreg 3.125mg BID; not on Amio or Diltaizem due to hypotension 3. 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 LifeVest at discharge 4 RAUL - resolved. 5 HTN - stable with Coreg 3.125mg BID 6. Hx of Rt ICA stenosis 7. Tobacco abuse - smoking cessation advised. MAR reviewed
[2019-08-03] MEDS: Apixaban 5 MG TAB PO SCH (20:58)
[2019-08-04] MEDS: Ondansetron PF 4 MG/2 ML Vial IVP SCH ×4 (04:19→21:20)
[2019-08-04 05:30] LABS: #Basophils 0.1 thou/uL (0.0-0.2); #Eosinphils 0.1 thou/uL (0.0-0.7); #Lymphocytes 1.8 thou/uL (1.20-3.40); %Eosinophils 1.6 % (0.0-10.0); %Lymphocytes 22.4 % (21.0-51.0); %Monocytes 12.7 % (0.0-10.0); %Neutrophils 62.3 % (42.0-75.0); Hemoglobin 14.2 g/dL (12.0-16.0); Mean Corpuscular HGB CONC 33.7 g/dL (32.0-36.0); Mean Corpuscular Hemoglobin 30.9 pg (27.0-31.0); Mean Corpuscular Volume 91.8 fL (78.0-98.0); Mean Platelet Volume 8.9 fL (7.4-10.4); Platelet Count 305 thou/uL (130-400); RBC Distribution Width 13.9 % (11.5-14.5); Red Blood Cell (RBC) Count 4.58 mill/uL (4.20-5.40)
[2019-08-04] MEDS: Furosemide 40 MG/4 ML VIAL SLOW IVP SCH (06:00)
--- NOTE | 2019-08-04 06:00 | PDOC.FM ---
- Subjective Subjective: Telemetry overnight shows runs of AFib from 120s up to 160s. Currently having runs of 150s-160s during exam this morning. Patient states she overall does not feel well, says "something isn't right" but cannot describe the sensation. She does state her left arm feels heavy. Denies chest pain/tightness/heaviness, nausea. Continues to have decreased appetite with minimal solid food intake, is drinking Boost shakes. - Objective MAR Reviewed: Yes Vital Signs & Weight: Vital Signs (12 hours) Temp Pulse Resp BP BP Pulse Ox 08/04/19 04:00 98.3 F 124 H 16 147/89 H 92 L 08/03/19 19:36 98.3 F 80 16 139/66 99 Weight Admit Weight 73.737 kg Weight 61.552 kg Most Recent Monitor Data Heart Rate from ECG 84 NIBP 90/54 NIBP BP-Mean 66 Respiration from ECG 21 SpO2 94 I&O: 08/02/19 08/03/19 08/04/19 06:59 06:59 06:59 Intake Total 170 960 720 Output Total 900 1170 420 Balance -730 -210 300 Result Diagrams: 08/04/19 04:28 08/04/19 04:28 Phys Exam - Physical Examination Constitutional: NAD HEENT: moist MMs, sclera anicteric Neck: no JVD, supple, full ROM Respiratory: no wheezing decreased breath sounds in right lung base Cardiovascular: RRR, no significant murmur Gastrointestinal: soft, non-tender, no distention, positive bowel sounds Musculoskeletal: no edema, pulses present Neurological: normal sensation, moves all 4 limbs Psychiatric: normal affect, A&O x 3 Skin: no rash, normal turgor Dx/Plan (1) A-fib Code(s): I48.91 - UNSPECIFIED ATRIAL FIBRILLATION Status: Acute Qualifiers: Atrial fibrillation type: unspecified Qualified Code(s): I48.91 - Unspecified atrial fibrillation (2) RAUL (acute kidney injury) Code(s): N17.9 - ACUTE KIDNEY FAILURE, UNSPECIFIED Status: Acute (3) CHF (congestive heart failure) Code(s): I50.9 - HEART FAILURE, UNSPECIFIED Status: Acute Qualifiers: Heart failure type: systolic Heart failure chronicity: unspecified Qualified Code(s): I50.20 - Unspecified systolic (congestive) heart failure (4) Tobacco abuse Code(s): Z72.0 - TOBACCO USE Status: Acute - Plan Plan: Patient is a 74 yo female who presents with weakness and congestion is admitted for new onset A-Fib with RVR and new onset CHF: 1. New-Onset A-Fib w/ RVR - Pt in the IMCU until 07/26/19. She initially was started on cardizem but due to low blood pressures she was switched to amiodarone which was stopped due to low BP's. Dr. Quinones loaded pt with digoxin on 07/22/19. Echo revealed restrictive filling pattern w/ an EF of 15-20%. At this time pt is rate controlled with normotensive BP's. She was transitioned out of IMCU to telemetry on 07/26/19. Blood pressure will need to be monitored as she is diuresed of fluids and may need dobutamine , per Dr. Quinones. BNP 2722 > 860. Dig level 1.75 > 3.15 > 1.60, continue to hold Digoxin per Dr. Quinones. Pt is currently rate controlled without digoxin, amiodarone and receiving carvedilol. BP's have remained stable. Cardiac viability study results show nonviable areas in inferior and lateral heart. Cardiovascular surgery has been consulted about decision on possible CABG. -Cardiac cath performed on 07/[address] Quinones, Cardiac viability study on 08/02- shows nonviable inferior and lateral areas -Anticoagulation Lovenox 70 mg SC once daily, transitioned to Eliquis 5 mg PO BID on 08/03/19 -anti-10a level 1.61 (therapeutic for once daily dosing) -ProCal: negative -Consulted Cardiology-Dr. Quinones, appreciate rec's -Consulted CV Surgery, appreciate recs -patient will need life vest at discharge -continue to hold Digoxin and Amiodarone, the Digoxin may be cause of patient's nausea -transition from IMCU to telemetry on 07/26 -08/04-now having runs of Afib in 120s-150s, symptomatic, will restart Diltiazem titration drip at this time 2. New-Onset CHF 2/2 CAD -IV Lasix [address] Hills; appreciate rec's -Echo revealed EF 15-20% - HPI and initial physical exam consistent w/ classic findings of CHF -BNP: 1096 --> 2722 --> 860 (07/27) -Statin therapy started -Heart failure clinic has seen and evaluated patient, per protocol have instructed patient will need follow up with Dr. Quinones within 2 weeks after discharge unless Dr. Quinones desires patient to see HF clinic first, appreciate recs - Repeat CXR on 07/30 showed stable R pleural effusion - no pocket appreciated for possible thoracentesis on U/S, 07/30 - 07/31 patient near euvolemia, last 2 BPs have been low, will continue to monitor. Will hold losartan if needed. - consider Chest CT of R pleural effusion if respiratory status worsens 3. Sinusitis -2 week hx of sinus pressure and nasal congestion. Possible illness recent cause for problems above -Hx of smoking. Possibly some underlying COPD. - d/c levaquin and start doxycycline (07/22-07/27). - Initial CXR revealed R pleural effusion vs pneumonia. Less likely pneumonia as procal negative but will continue to treat for a total of [address] Hills. - Repeat CXR showed continued consolidation in right lower lobe, 07/30 patient with increased O2 requirement up to 3L, repeat CXR revealed stable R pleural effusion. Neg procalcitonin on 07/31 to r/o bacterial pneumonia. O2 requirement has continued to fluctuate between 1-3L. 4. RAUL - resolved -Trend AM BMP 5. Hx of HTN -Hasn't been on medication for 10 years. -Normotensive to hypotensive throughout stay; currently on carvedilol, losartan -Continue to monitor vitals 6. 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 R ICA Stenosis - started Atorvastatin therapy; aspirin 81 mg 8. Hypokalemia - replete with IV KCl as needed - likely due to decreased PO intake 9. Poor PO Intake - initially thought might improve with BM, but patient has since had 2 moderate BMs - has Zofran available prn - will add on scheduled Zofran q6hr - thought to be due to Digoxin - Dr. Hills recs suggest nausea and decreased appetite due to Depression, can consider starting SSRI as an outpatient if symptoms persist - 07/31-29 pt diet fair, drinking supplemental shakes 10. Constipation--resolved -not alleviated with PO Polyethylene glycol. Ordered fleets enema on 07/25. -Patient had 1 BM @ 1700 on 07/25, another 1 BM on 07/26, 2 BMs on 07/27 -continue scheduled PO PEG & Senna Code: FULL Diet: Regular DVT PPx: SCDs & Therapeutic Lovenox Dispo: Stable, admit to telemetry for medication optimization and rate control. Patient waiting for CV surgery recs today to further guide care for surgical vs medical management. Will restart Diltiazem drip at this time due to recurrence of Afib with RVR. Anticipate discharge in >48 hours.
[2019-08-04 06:37] LABS: Anion Gap 20 mmol/L (10-20); BUN (Urea Nitrogen) 18 mg/dL (9.8-20.1); Calc. Creatinine Clearance 59 mL/min (70-130); Calcium 9.3 mg/dL (7.8-10.44); Carbon Dioxide 28 mmol/L (23-31); Chloride 92 mmol/L (98-107); Estimated GFR-MDRD 69; Glucose 85 mg/dL (83-110); Potassium 3.8 mmol/L (3.5-5.1); Sodium 136 mmol/L (136-145)
[2019-08-04] MEDS ORDERED: Diltiazem 125 MG in Sodium Chloride 0.9% 100 ML IVPB SCH (07:00)
--- NOTE | 2019-08-04 10:00 | CON ---
DATE OF CONSULTATION: HISTORY OF PRESENT ILLNESS: This is a 74-year-old female, admitted last week with 2 weeks of peripheral edema and progressive dyspnea, such that she could not lie in her bed, asleep. She was admitted to the hospital, where she was found to have AFib with RVR, but was intolerant of Cardizem and amiodarone due to hypotension. Ejection fraction was found to be about 15% to 20% by echo and thallium study, demonstrated irreversible changes in the inferoapical wall. She has really no medical history, having no primary care physician, and being on no medicines prior to admission. She admits to smoking cigarettes her entire life and reportedly was smoking about 6 cigarettes a day by her account. SOCIAL HISTORY: Otherwise, she lives alone in [place], has 3 children. PAST SURGICAL HISTORY: No significant surgical illnesses other than appendectomy. ALLERGIES: TO PENICILLIN. MEDICATIONS PRIOR TO ADMISSION: Vitamins. REVIEW OF SYSTEMS: The patient has fairly inactive lifestyle. She walks around [place] with a basket. She states her left calf hurts her all the time, but does not particularly keep her awake at night. She does admit to dyspnea on exertion. She has a productive cough normally at home. PHYSICAL EXAMINATION: GENERAL: Lady appearing older than her stated age with a height of 5 feet 4 inches, weight of 133 pounds. VITAL SIGNS: Her blood pressure is recorded as 147/89, and her heart rate appears to be about 90 and AFib on examination. She is wearing nasal cannula O2. NECK: With bilateral carotid bruits. LUNGS: Clear to auscultation anteriorly. CARDIAC: Tachycardia, irregular rhythm. No murmurs. ABDOMEN: Nontender. EXTREMITIES: I am unable to palpate radial pulses in either upper extremity or brachial pulses. Her left femoral pulse is strong. I am unable to feel a right femoral pulse, although she did have a cardiac catheterization here. She has no distal pulses. No peripheral edema. IMAGING STUDIES: Cardiac catheterization initially attempted through the right arm, demonstrated severe disease in the most proximal aspect of the subclavian artery with heavy calcification. Femoral approach on the right demonstrated severe iliac disease on the right. 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 The ascending aorta did not appear to have any gross calcification. The patient's coronary artery anatomy, she did demonstrate significant coronary disease in all 3 vessels, but unfortunately no critical lesions in the 90% range, although the circumflex probably had the most severe disease prior to an obtuse marginal. Potential targets include LAD, OM, PDA, and posterolateral. ASSESSMENT AND PLAN: The patient at this time prohibitive surgical risk for any number of her major comorbid conditions. I agree with medical management and reassess her over the next several months to see if her ejection fraction improves and her pulmonary function would have to be evaluated prior to any consideration for surgical intervention down the road. She would need to stop smoking and probably have a more intensive vascular evaluation with CT angiography. 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 Job ID: [id number]
[2019-08-04] MEDS: Carvedilol 3.125 MG TAB PO SCH ×2 (10:20→17:51)
[2019-08-04] MEDS: Polyethylene Glycol 3350 17 GM Packet PO SCH (10:21)
[2019-08-04] MEDS: Aspirin 81 mg Enteric Coated Tablet PO SCH (10:21)
[2019-08-04] MEDS: Apixaban 5 MG TAB PO SCH ×2 (10:21→21:20)
[2019-08-04] MEDS: Losartan 25 MG TAB PO SCH (10:21)
[2019-08-04] MEDS: Ibuprofen 200 MG TAB PO SCH ×2 (10:21→21:19)
[2019-08-04] MEDS: Senokot S 8.6-50 MG TAB PO SCH ×2 (10:22→21:19)
--- NOTE | 2019-08-04 13:09 | PRG ---
DATE OF SERVICE: 08/04/2019 Dr. Escalante of the Cardiovascular Service has evaluated Ms. Augustin. He believes that she has a prohibitive risk for surgical intervention. We therefore continue with medical therapy for her significant CAD and heart failure along with Cardiology. Job ID: [id number]
[2019-08-04] MEDS ORDERED: Carvedilol 3.125 MG TAB PO SCH (18:00)
--- NOTE | 2019-08-04 18:00 | PDOC.CPN ---
- Subjective Date: 08/04/19 Time: 17:30 - Review of Systems General: denies: fever/chills Respiratory: denies: cough, congestion Cardiovascular: denies: chest pain Gastrointestinal: denies: nausea Musculoskeletal: denies: pain Neurological: denies: weakness - Objective Allergies/Adverse Reactions: Allergies Allergy/AdvReac Type Severity Reaction Status Date / Time Penicillins Allergy Verified 07/21/19 21:45 Visit Medications: Current Medications Acetaminophen (Tylenol) 650 mg PO Q4H PRN PRN Reason: Headache/Fever/Mild Pain (1-3) Last Admin: 07/25/19 17:10 Dose: 650 mg Acetaminophen/Codeine Phosphate (Tylenol #3) 1 tab PO Q4H PRN PRN Reason: Mild Pain (1-3) Acetaminophen/Codeine Phosphate (Tylenol #3) 2 tab PO Q4H PRN PRN Reason: Moderate Pain (4-6) Albuterol/Ipratropium (Duoneb) 3 ml NEB Q4H PRN PRN Reason: Dyspnea Apixaban (Eliquis) 5 mg PO BID [facility] Last Admin: 08/04/19 10:21 Dose: 5 mg Aspirin (Ecotrin) 81 mg PO DAILY [facility] Last Admin: 08/04/19 10:21 Dose: 81 mg Atorvastatin Calcium (Lipitor) 40 mg PO HS [facility] Last Admin: 08/03/19 20:29 Dose: 40 mg Carvedilol (Coreg) 6.25 mg PO BID-[facility] Carvedilol (Coreg) 6.25 mg PO NOW [facility] Stop: 08/04/19 20:00 Furosemide (Lasix) 40 mg SLOW IVP 0600 [facility] Last Admin: 08/04/19 06:00 Dose: 40 mg Diltiazem HCl 125 mg/ Sodium (Chloride) 125 mls @ 0 mls/hr IVPB INF [facility]; Protocol Ibuprofen (Motrin) 200 mg PO BID [facility] Last Admin: 08/04/19 10:21 Dose: 200 mg Loratadine (Claritin) 10 mg PO DAILYPRN PRN PRN Reason: Allergies Losartan Potassium (Cozaar) 25 mg PO DAILY [facility] Last Admin: 08/04/19 10:21 Dose: 25 mg Menthol/Methyl Salicylate (Muscle Rub Cream (Bengay)) 1 gm TOP QID PRN PRN Reason: Muscle Pain Last Admin: 07/25/19 06:20 Dose: 1 gm Nitroglycerin (Nitrostat) 0.4 mg SL Q5MIN PRN PRN Reason: Chest Pain Ondansetron HCl (Zofran) 4 mg IVP Q6H [facility] Last Admin: 08/04/19 15:39 Dose: Not Given Polyethylene Glycol (Miralax) 17 gm PO DAILY [facility] Last Admin: 08/04/19 10:21 Dose: 17 gm Senna/Docusate Sodium (Senokot S) 2 tab PO BID PRN PRN Reason: Constipation Last Admin: 07/24/19 13:29 Dose: 2 tab Senna/Docusate Sodium (Senokot S) 1 tab PO BID [facility] Last Admin: 08/04/19 10:22 Dose: 1 tab Sodium Chloride (Flush - Normal Saline) 10 ml IVF PRN PRN PRN Reason: Saline Flush Last Admin: 08/01/19 09:11 Dose: 10 ml Vital Signs & Weight: Vital Signs Temp Pulse Resp BP Pulse Ox 08/04/19 16:00 99.1 F 94 20 08/04/19 15:37 99.1 F 92 20 131/80 93 L 08/04/19 11:55 98.3 F 81 20 121/54 L 94 L 08/04/19 09:40 93 L 08/04/19 08:11 97.6 F 102 H 18 132/93 H 93 L Admit Weight 162 lb 9 oz Weight 133 lb - Quality Measures CV meds: Beta Zahida: Yes (copd), CHEY/ARB: Yes (renal insuff.), Statin: Yes, ASA: Yes - Physical Exam HEENT: normocephaly, PERRL Neck: no JVD/HJR Cardiac: irregularly regular Lungs: no wheeze, rales, rhonchi, decreased breath sounds Abdomen: unremarkable Extremities: no edema Musculoskeletal: normal range of motion, no fluid collection - Labs Result Diagrams: 08/04/19 04:28 08/04/19 04:28 Troponin/CKMB Troponin I 0.071 ng/mL (< 0.028) H 07/27/19 10:18 - Assessment/Plan Assessment/Plan: 1. CAD with s/p LHC on 07/29/2019 with 90% in prox LAD, 95% in 1st diag, 75% in prox Lt Cx, 75% in prox RCA, 70% in dist RCA, 90% in PDA, 50% in 3rd RPL, and EF 25% - On Coreg, Losartan, ASA, and Statin; Had Viability Study yesterday and the results indicate no viabilty in the inferior wall. Seen by CV surgeon today to see if she is a candidate for revascularization. High risk due to severe decr. EF and heavy calcium. per the note she may be a candidate once the EF improves. 2. New-Onset A-Fib w/ RVR - HR was increased today.(holding Digoxin 0.25mg qd 2/ 2 elevated dig level >3 on 07/28/2019) on Eliquis BID; On Coreg 3.125mg BID; will increase oreg, may need po diltiazem also. 3. 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 LifeVest at discharge 4 RAUL - resolved. 5 HTN - stable with Coreg 3.125mg BID 6. Hx of Rt ICA stenosis 7. Tobacco abuse - smoking cessation advised. 8. Severe PVD. BP is being measured in the legs. There was a 60mmHg difference in the central BP and the Aortic pressure. MARLIN reviewed
[2019-08-04] MEDS: Atorvastatin Calcium 40 MG TAB PO SCH (21:20)
[2019-08-05] MEDS: Ondansetron PF 4 MG/2 ML Vial IVP SCH ×4 (03:42→23:22)
[2019-08-05 06:10] LABS: #Eosinphils 0.2 thou/uL (0.0-0.7); #Lymphocytes 2.3 thou/uL (1.20-3.40); #Monocytes 1.1 thou/uL (0.11-0.59); #Neutrophils 4.7 thou/uL (1.40-6.50); %Basophils 0.5 % (0.0-1.0); %Eosinophils 2.5 % (0.0-10.0); %Lymphocytes 27.6 % (21.0-51.0); %Neutrophils 56.4 % (42.0-75.0); Hemoglobin 14.2 g/dL (12.0-16.0); Mean Corpuscular HGB CONC 32.9 g/dL (32.0-36.0); Mean Corpuscular Hemoglobin 30.4 pg (27.0-31.0); Mean Corpuscular Volume 92.6 fL (78.0-98.0); Mean Platelet Volume 8.8 fL (7.4-10.4); Platelet Count 328 thou/uL (130-400); Red Blood Cell (RBC) Count 4.65 mill/uL (4.20-5.40); White Blood Cell (WBC) Count 8.4 thou/uL (4.8-10.8)
[2019-08-05] MEDS: Furosemide 40 MG/4 ML VIAL SLOW IVP SCH (06:12)
--- NOTE | 2019-08-05 06:19 | PDOC.FM ---
- Subjective Subjective: Patient states that she wants to go home, she is "tired of being here". Otherwise denies any other complaints. Says she continues to drink boost for meals, not much solid food intake although her daughter is encouraging. Telemetry showed Afib in 80s to 100s overnight. - Objective MAR Reviewed: Yes Vital Signs & Weight: Vital Signs (12 hours) Temp Pulse Resp BP Pulse Ox 08/05/19 04:00 98.0 F 83 18 139/64 08/04/19 23:50 90/63 08/04/19 19:15 98.2 F 99 18 125/53 L 94 L Weight Admit Weight 73.737 kg Weight 60.328 kg Most Recent Monitor Data Heart Rate from ECG 84 NIBP 90/54 NIBP BP-Mean 66 Respiration from ECG 21 SpO2 94 I&O: 08/03/19 08/04/19 08/05/19 06:59 06:59 06:59 Intake Total 075 579 2406 Output Total 1170 420 Balance -019 429 4754 Result Diagrams: 08/05/19 05:33 08/05/19 05:33 Phys Exam - Physical Examination Constitutional: NAD HEENT: moist MMs, sclera anicteric Neck: no JVD, supple, full ROM Respiratory: no wheezing, clear to auscultation bilateral decreased breath sounds in right lung base Cardiovascular: RRR, no significant murmur Gastrointestinal: soft, non-tender, no distention, positive bowel sounds Musculoskeletal: no edema Neurological: normal sensation, moves all 4 limbs Psychiatric: A&O x 3 Deviation from normal: depressed affect Skin: no rash, normal turgor Dx/Plan (1) A-fib Code(s): I48.91 - UNSPECIFIED ATRIAL FIBRILLATION Status: Acute Qualifiers: Atrial fibrillation type: unspecified Qualified Code(s): I48.91 - Unspecified atrial fibrillation (2) RAUL (acute kidney injury) Code(s): N17.9 - ACUTE KIDNEY FAILURE, UNSPECIFIED Status: Acute (3) CHF (congestive heart failure) Code(s): I50.9 - HEART FAILURE, UNSPECIFIED Status: Acute Qualifiers: Heart failure type: systolic Heart failure chronicity: unspecified Qualified Code(s): I50.20 - Unspecified systolic (congestive) heart failure (4) Tobacco abuse Code(s): Z72.0 - TOBACCO USE Status: Acute - Plan Plan: Patient is a 74 yo female who presents with weakness and congestion is admitted for new onset A-Fib with RVR and new onset CHF: 1. New-Onset A-Fib w/ RVR - Pt in the IMCU until 07/26/19. She initially was started on cardizem but due to low blood pressures she was switched to amiodarone which was stopped due to low BP's. Dr. Quinones loaded pt with digoxin on 07/22/19. Echo revealed restrictive filling pattern w/ an EF of 15-20%. At this time pt is rate controlled with normotensive BP's. She was transitioned out of IMCU to telemetry on 07/26/19. Blood pressure will need to be monitored as she is diuresed of fluids and may need dobutamine , per Dr. Quinones. BNP 2722 > 860. Dig level 1.75 > 3.15 > 1.60, continue to hold Digoxin per Dr. Quinones. Pt is currently rate controlled without digoxin, amiodarone and receiving carvedilol. BP's have remained stable. Cardiac viability study results show nonviable areas in inferior and lateral heart. Cardiovascular surgery, Dr. Escalante has been consulted about decision on possible CABG. -Cardiac cath performed on 07/[address] Quinones, Cardiac viability study on 08/02- shows nonviable inferior and lateral areas -Anticoagulation Lovenox 70 mg SC once daily, transitioned to Eliquis 5 mg PO BID on 08/03/19 -anti-10a level 1.61 (therapeutic for once daily dosing) -ProCal: negative -Consulted Cardiology-Dr. Quinones, appreciate rec's -Consulted CV Surgery-Dr. Escalante, appreciate recs -patient will need life vest at discharge -continue to hold Digoxin and Amiodarone, the Digoxin may be cause of patient's nausea -transition from IMCU to telemetry on 07/26 -08/04-now having runs of Afib in 120s-150s, symptomatic, given Diltiazem 20 mg IV bolus with HR back down to 80s-90s so will hold titration drip at this time, consider starting drip if RVR recurs -08/05-Dr. Quinones increasing Coreg dose to 6.25 mg BID, considering starting PO Diltiazem; Dr. Escalante recommends not a candidate for surgery at this time, may be candidate in future if EF improves 2. New-Onset CHF 2/2 CAD -IV Lasix [address] Hills; appreciate rec's -Echo revealed EF 15-20% - HPI and initial physical exam consistent w/ classic findings of CHF -BNP: 1096 --> 2722 --> 860 (07/27) -Statin therapy started -Heart failure clinic has seen and evaluated patient, per protocol have instructed patient will need follow up with Dr. Quinones within 2 weeks after discharge unless Dr. Quinones desires patient to see HF clinic first, appreciate recs - Repeat CXR on 07/30 showed stable R pleural effusion - no pocket appreciated for possible thoracentesis on U/S, 07/30 - 07/31 patient near euvolemia, last 2 BPs have been low, will continue to monitor. Will hold losartan if needed. - consider Chest CT of R pleural effusion if respiratory status worsens 3. Sinusitis -2 week hx of sinus pressure and nasal congestion. Possible illness recent cause for problems above -Hx of smoking. Possibly some underlying COPD. - d/c levaquin and start doxycycline (07/22-07/27). - Initial CXR revealed R pleural effusion vs pneumonia. Less likely pneumonia as procal negative but will continue to treat for a total of [address] Hills. - Repeat CXR showed continued consolidation in right lower lobe, 07/30 patient with increased O2 requirement up to 3L, repeat CXR revealed stable R pleural effusion. Neg procalcitonin on 07/31 to r/o bacterial pneumonia. O2 requirement has continued to fluctuate between 1-3L. 4. RAUL - resolved -Trend AM BMP 5. Hx of HTN -Hasn't been on medication for 10 years. -Normotensive to hypotensive throughout stay; currently on carvedilol, losartan -Continue to monitor vitals 6. 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 R ICA Stenosis - started Atorvastatin therapy; aspirin 81 mg 8. Hypokalemia - replete with IV KCl as needed - likely due to decreased PO intake 9. Poor PO Intake - initially thought might improve with BM, but patient has since had 2 moderate BMs - has Zofran available prn - will add on scheduled Zofran q6hr - thought to be due to Digoxin - Dr. Hills recs suggest nausea and decreased appetite due to Depression, can consider starting SSRI as an outpatient if symptoms persist - 07/31- pt diet fair, drinking supplemental shakes . Constipation--resolved -not alleviated with PO Polyethylene glycol. Ordered fleets enema on 07/25. -Patient had 1 BM @ 1700 on 07/25, another 1 BM on 07/26, 2 BMs on 07/27 -continue scheduled PO PEG & Senna Code: FULL Diet: Regular DVT PPx: SCDs & Therapeutic Lovenox Dispo: Stable, admit to telemetry for medication optimization and rate control. Cardio & CV surgery recs opting for medical management. Will need life vest before discharge. Monitor for recurrence of RVR. Anticipate discharge in <48 hours.
[2019-08-05 06:33] LABS: Anion Gap 18 mmol/L (10-20); BUN (Urea Nitrogen) 24 mg/dL (9.8-20.1); Calc. Creatinine Clearance 50 mL/min (70-130); Calcium 9.4 mg/dL (7.8-10.44); Carbon Dioxide 29 mmol/L (23-31); Chloride 93 mmol/L (98-107); Estimated GFR-MDRD 56; Glucose 94 mg/dL (83-110); Potassium 3.8 mmol/L (3.5-5.1); Sodium 136 mmol/L (136-145)
[2019-08-05] MEDS: Apixaban 5 MG TAB PO SCH ×2 (09:33→22:07)
[2019-08-05] MEDS: Losartan 25 MG TAB PO SCH (09:33)
[2019-08-05] MEDS: Aspirin 81 mg Enteric Coated Tablet PO SCH (09:33)
[2019-08-05] MEDS: Ibuprofen 200 MG TAB PO SCH ×2 (09:33→22:06)
[2019-08-05] MEDS: Carvedilol 3.125 MG TAB PO SCH ×2 (09:33→16:58)
[2019-08-05] MEDS: Senokot S 8.6-50 MG TAB PO SCH ×2 (09:34→22:06)
[2019-08-05] MEDS: Polyethylene Glycol 3350 17 GM Packet PO SCH (09:34)
--- NOTE | 2019-08-05 11:10 | PDOC.CPN ---
- Subjective Date: 08/05/19 Time: 08:30 Interval history: The pt seen and examined. No overnight events. No cardiac complaints. - Objective Allergies/Adverse Reactions: Allergies Allergy/AdvReac Type Severity Reaction Status Date / Time Penicillins Allergy Verified 07/21/19 21:45 Visit Medications: Current Medications Acetaminophen (Tylenol) 650 mg PO Q4H PRN PRN Reason: Headache/Fever/Mild Pain (1-3) Last Admin: 07/25/19 17:10 Dose: 650 mg Acetaminophen/Codeine Phosphate (Tylenol #3) 1 tab PO Q4H PRN PRN Reason: Mild Pain (1-3) Acetaminophen/Codeine Phosphate (Tylenol #3) 2 tab PO Q4H PRN PRN Reason: Moderate Pain (4-6) Albuterol/Ipratropium (Duoneb) 3 ml NEB Q4H PRN PRN Reason: Dyspnea Apixaban (Eliquis) 5 mg PO BID [facility] Last Admin: 08/05/19 09:33 Dose: 5 mg Aspirin (Ecotrin) 81 mg PO DAILY [facility] Last Admin: 08/05/19 09:33 Dose: 81 mg Atorvastatin Calcium (Lipitor) 40 mg PO HS [facility] Last Admin: 08/04/19 21:20 Dose: 40 mg Carvedilol (Coreg) 6.25 mg PO BID-WM [facility] Last Admin: 08/05/19 09:33 Dose: 6.25 mg Digoxin (Lanoxin) 0.25 mg SLOW IVP NOW [facility] Furosemide (Lasix) 40 mg SLOW IVP 0600 [facility] Last Admin: 08/05/19 06:12 Dose: 40 mg Ibuprofen (Motrin) 200 mg PO BID [facility] Last Admin: 08/05/19 09:33 Dose: 200 mg Ivabradine (Corlanor) 5 mg PO BID [facility] Loratadine (Claritin) 10 mg PO DAILYPRN PRN PRN Reason: Allergies Losartan Potassium (Cozaar) 25 mg PO DAILY [facility] Last Admin: 08/05/19 09:33 Dose: 25 mg Menthol/Methyl Salicylate (Muscle Rub Cream (Bengay)) 1 gm TOP QID PRN PRN Reason: Muscle Pain Last Admin: 07/25/19 06:20 Dose: 1 gm Nitroglycerin (Nitrostat) 0.4 mg SL Q5MIN PRN PRN Reason: Chest Pain Ondansetron HCl (Zofran) 4 mg IVP Q6H [facility] Last Admin: 08/05/19 09:43 Dose: Not Given Polyethylene Glycol (Miralax) 17 gm PO DAILY [facility] Last Admin: 08/05/19 09:34 Dose: 17 gm Senna/Docusate Sodium (Senokot S) 2 tab PO BID PRN PRN Reason: Constipation Last Admin: 07/24/19 13:29 Dose: 2 tab Senna/Docusate Sodium (Senokot S) 1 tab PO BID [facility] Last Admin: 08/05/19 09:34 Dose: 1 tab Sodium Chloride (Flush - Normal Saline) 10 ml IVF PRN PRN PRN Reason: Saline Flush Last Admin: 08/01/19 09:11 Dose: 10 ml Vital Signs & Weight: Vital Signs Temp Pulse Resp BP BP Pulse Ox 08/05/19 08:16 97.6 F 107 H 20 130/92 H 98 08/05/19 04:00 98.0 F 83 18 139/64 08/04/19 23:50 90/63 Admit Weight 162 lb 9 oz Weight 133 lb 7 oz - Quality Measures CV meds: Beta Zahida: Yes (copd), CHEY/ARB: Yes (renal insuff.), Statin: Yes, ASA: Yes - Physical Exam General: alert & oriented x3 Neck: supple neck, JVD/HJR Cardiac: irregularly regular Lungs: decreased breath sounds Skin: clear Musculoskeletal: decreased range of motion - Labs Result Diagrams: 08/05/19 05:33 08/05/19 05:33 Troponin/CKMB Troponin I 0.071 ng/mL (< 0.028) H 07/27/19 10:18 - Telemetry Supraventricular conduction: atrial fibrillation - Assessment/Plan Assessment/Plan: 1. CAD with s/p LHC on 07/29/2019 with 90% in prox LAD, 95% in 1st diag, 75% in prox Lt Cx, 75% in prox RCA, 70% in dist RCA, 90% in PDA, 50% in 3rd RPL, and EF 25% - On Coreg, Losartan, ASA, and Statin; Had Viability Study yesterday and the results indicate no viabilty in the inferior wall. Consulted by Dr Escalante and cont. medical tx and follow up within a few months to eval EF improvement since High risk due to severe decr. EF and heavy calcium. per the note she may be a candidate once the EF improves. 2. New-Onset A-Fib w/ RVR - HR was increased today. Digoxin 0.25mg IV x 1 and start Corlanor 5mg BID from today; On Eliquis BID, and Coreg 6.25 5mg BID 3. 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 LifeVest at discharge 4 RAUL - resolved. 5 HTN - stable with current med 6. Hx of Rt ICA stenosis 7. Tobacco abuse - smoking cessation advised. 8. Severe PVD. BP is being measured in the legs. There was a 60mmHg difference in the central BP and the Aortic pressure. MAR reviewed Pt. seen and eval. by me. I agree with the A/P by the [employer]EL[employer]. The HR was still elevated this AM with Afib and RVR. She is doing better with 1 dose of digoxin and corlanor now started. this may help control the HR but not lower the BP. As soon as the HR is controlled she should be able to be d/c'd. If the HR remains elevated > 110 bpm consistently then she is at risk of decompensating into worsening CHF again. I will see her back inthe office in 2 weeks.
[2019-08-05] MEDS ORDERED: Ivabradine 5 MG TAB PO SCH ×2 (11:15→11:30)
[2019-08-05] MEDS ORDERED: Digoxin 0.5 MG/2 ML AMP SLOW IVP SCH (11:15)
--- NOTE | 2019-08-05 11:42 | PRG ---
DATE OF SERVICE: 08/05/2019 Ms. Augustin is sitting quietly in bed. We are awaiting placement of her LifeVest, after which she can be discharged home or rehab. Job ID: [id number]
[2019-08-05 14:34] VITALS: BMI 22.8
--- NOTE | 2019-08-05 16:01 | PDOC.PALCO ---
Palliative Care Consult - Consult Details Requesting Physician: Dr Gross Reason for Consult: goals of care, advance directives assistance, family support Family Members Present: Paitnets daughter Faviola and son Jarrell - Pertinent HPI 73 year old female who had sinus congestion for 2 weeks and increase in shortness of breath without cough. Patient lives in [place] and came to visit son, symptoms progressed and significant weakness onset. No relieving factors, emergency room evaluation identified onset of CHF, atrial fib, as well as sinus infection and kidney disease. Patient has not been to a physician in over 10 years as per her stated history. - Pertinent PMH Has not seen a physician in over 10 years, history of Hypertension - Social History Smoking Status: Smokes 0-10 cigs daily Smoking: cigarettes Alcohol Use: occasional Drug Use History: none Living Situation: independent - Medications MAR Reviewed: Yes - Allergies Allergies/Adverse Reactions: Allergies Allergy/AdvReac Type Severity Reaction Status Date / Time Penicillins Allergy Verified 07/21/19 21:45 - Subjective Sitting at bedside in recliner with feet elevated, free of complaints other than fatigue and poor appetite in the hospital. ROS otherwise negative - Objective Vital Signs: Vital Signs - Most Recent Temp Pulse Resp BP Pulse Ox 97.6 F 109 H 18 113/59 L 93 L 08/05/19 11:52 08/05/19 11:52 08/05/19 11:52 08/05/19 11:52 08/05/19 11:52 Palliative Performance Scale: 50 - Physical Exam Constitutional: NAD HEENT: PERRLA, moist MMs, EOMI Respiratory: unlabored breathing Cardiovascular: no significant murmur Gastrointestinal: soft, non-tender, positive bowel sounds Musculoskeletal: pulses present Neurological: moves all 4 limbs Psychiatric: normal affect, A&O x 3 Skin: cap refill <2 seconds Deviation from normal: Fragile skin - Problem List (1) Palliative care encounter Code(s): Z51.5 - ENCOUNTER FOR PALLIATIVE CARE Current Visit: Yes Status: Acute (2) CHF (congestive heart failure) Code(s): I50.9 - HEART FAILURE, UNSPECIFIED Current Visit: Yes Status: Acute Qualifiers: Heart failure type: systolic Heart failure chronicity: unspecified Qualified Code(s): I50.20 - Unspecified systolic (congestive) heart failure (3) Chronic kidney disease Code(s): N18.9 - CHRONIC KIDNEY DISEASE, UNSPECIFIED Current Visit: Yes Status: Acute - Plan/Recommendations Plan: Initial contact by Palliative Care RN Ike Khan. In assessing goals of care patient greatest desire to to discharge to her son or daughters and then return to her home in [place]. Unsure if she desires to continue with life vest. *Initiated conversation of Home Health with palliative care *Return to as independent living environment as possible *Greatest Viky is her grandchildren, they call her "Grammy" *revisit DNAR status 08/06 Palliative Care RN to continue to followPlease refer to Palliative Care RN note under Notes if needed. [40] minutes spent on this encounter with >50% of the time in counseling and coordination of care. Thank you for this very appropriate consult.
[2019-08-05] MEDS: Ivabradine 5 MG TAB PO SCH (22:05)
[2019-08-05] MEDS: Atorvastatin Calcium 40 MG TAB PO SCH (22:06)
[2019-08-06 04:39] LABS: #Basophils 0.1 thou/uL (0.0-0.2); #Eosinphils 0.2 thou/uL (0.0-0.7); #Lymphocytes 2.1 thou/uL (1.20-3.40); #Monocytes 1.3 thou/uL (0.11-0.59); #Neutrophils 8.4 thou/uL (1.40-6.50); %Basophils 0.9 % (0.0-1.0); %Eosinophils 1.5 % (0.0-10.0); %Lymphocytes 17.1 % (21.0-51.0); %Monocytes 11.1 % (0.0-10.0); %Neutrophils 69.5 % (42.0-75.0); Hemoglobin 14.4 g/dL (12.0-16.0); Mean Corpuscular HGB CONC 33.6 g/dL (32.0-36.0); Mean Corpuscular Hemoglobin 31.1 pg (27.0-31.0); Mean Corpuscular Volume 92.6 fL (78.0-98.0); Mean Platelet Volume 8.2 fL (7.4-10.4); Platelet Count 377 thou/uL (130-400); RBC Distribution Width 14.1 % (11.5-14.5); Red Blood Cell (RBC) Count 4.62 mill/uL (4.20-5.40)
[2019-08-06] MEDS: Ondansetron PF 4 MG/2 ML Vial IVP SCH ×3 (04:49→16:13)
[2019-08-06 04:59] LABS: Anion Gap 16 mmol/L (10-20); BUN (Urea Nitrogen) 27 mg/dL (9.8-20.1); Calc. Creatinine Clearance 44 mL/min (70-130); Calcium 9.5 mg/dL (7.8-10.44); Carbon Dioxide 33 mmol/L (23-31); Chloride 91 mmol/L (98-107); Estimated GFR-MDRD 49; Glucose 102 mg/dL (83-110); Potassium 3.7 mmol/L (3.5-5.1); Sodium 136 mmol/L (136-145)
[2019-08-06] MEDS: Furosemide 40 MG/4 ML VIAL SLOW IVP SCH (05:38)
--- NOTE | 2019-08-06 05:51 | PDOC.FM ---
- Subjective Subjective: An extended discussion was had with patient this morning regarding her wishes after discharge. Patient states that she understands Cardiology decision for medical management. She voices understanding that CV surgery has decided not to pursue surgery at this time given her current EF. Patient ultimately wants to be able to transition back to her daughter or son's home then eventually her home with home health services. She does want to continue physical therapy and says she would be fine with transitioning to an inpatient rehab facility for continued therapy for a short period before transitioning to a private residence. Patient voices desire to discharge from this admission, voices understanding that she had remained here due to her heart rate still have episodes of >120 bpm requiring medication adjustment. Patient's HR should ideally remain <110 bpm to prevent risk of repeat CHF exacerbation. Overnight telemetry showed majority Afib in 80s to 90s, had one episode of Afib in 140s that lasted a few minutes, nursing reports patient was sleeping and asymptomatic at the time. Patient voices no complaints this morning. - Objective MAR Reviewed: Yes Vital Signs & Weight: Vital Signs (12 hours) Temp Pulse Resp BP BP Pulse Ox 08/06/19 04:05 97.8 F 78 20 128/71 97 08/05/19 19:10 97.4 F L 83 20 122/69 93 L Weight Admit Weight 73.737 kg Weight 60.526 kg Most Recent Monitor Data Heart Rate from ECG 84 NIBP 90/54 NIBP BP-Mean 66 Respiration from ECG 21 SpO2 94 I&O: 08/04/19 08/05/19 08/06/19 06:59 06:59 06:59 Intake Total 920 1440 1200 Output Total 420 Balance 500 1440 1200 Result Diagrams: 08/06/19 04:22 08/06/19 04:22 Phys Exam - Physical Examination Constitutional: NAD HEENT: moist MMs, sclera anicteric Neck: no JVD, supple, full ROM Respiratory: no wheezing, no rhonchi decreased breath sounds in bilateral bases Cardiovascular: no significant murmur, irregular irregular rate and rhythm Gastrointestinal: soft, non-tender, positive bowel sounds Musculoskeletal: no edema, pulses present Neurological: normal sensation, moves all 4 limbs Psychiatric: normal affect, A&O x 3 Skin: no rash, normal turgor Dx/Plan (1) A-fib Code(s): I48.91 - UNSPECIFIED ATRIAL FIBRILLATION Status: Acute Qualifiers: Atrial fibrillation type: unspecified Qualified Code(s): I48.91 - Unspecified atrial fibrillation (2) RAUL (acute kidney injury) Code(s): N17.9 - ACUTE KIDNEY FAILURE, UNSPECIFIED Status: Acute (3) CHF (congestive heart failure) Code(s): I50.9 - HEART FAILURE, UNSPECIFIED Status: Acute Qualifiers: Heart failure type: systolic Heart failure chronicity: unspecified Qualified Code(s): I50.20 - Unspecified systolic (congestive) heart failure (4) Tobacco abuse Code(s): Z72.0 - TOBACCO USE Status: Acute - Plan Plan: Patient is a 74 yo female who presents with weakness and congestion is admitted for new onset A-Fib with RVR and new onset CHF: 1. New-Onset A-Fib w/ RVR - Pt in the IMCU until 07/26/19. She initially was started on cardizem but due to low blood pressures she was switched to amiodarone which was stopped due to low BP's. Dr. Quinones loaded pt with digoxin on 07/22/19. Echo revealed restrictive filling pattern w/ an EF of 15-20%. At this time pt is rate controlled with normotensive BP's. She was transitioned out of IMCU to telemetry on 07/26/19. Blood pressure will need to be monitored as she is diuresed of fluids and may need dobutamine , per Dr. Quinones. BNP 2722 > 860. Dig level 1.75 > 3.15 > 1.60, continue to hold Digoxin per Dr. Quinones. Pt is currently rate controlled without digoxin, amiodarone and receiving carvedilol. BP's have remained stable. Cardiac viability study results show nonviable areas in inferior and lateral heart. Cardiovascular surgery, Dr. Escalante has been consulted about decision on possible CABG and recs that patient is not a candidate for surgery at this time unless her EF improves -Cardiac cath performed on 07/[address] Quinones, Cardiac viability study on 08/02- shows nonviable inferior and lateral areas -Anticoagulation Lovenox 70 mg SC once daily, transitioned to Eliquis 5 mg PO BID on 08/03/19 -anti-10a level 1.61 (therapeutic for once daily dosing) -ProCal: negative -Consulted Cardiology-Dr. Quinones, appreciate rec's -Consulted CV Surgery-Dr. Escalante, appreciate recs -patient will need life vest at discharge--provided to patient on 08/05 -continue to hold Digoxin and Amiodarone, the Digoxin may be cause of patient's nausea -transition from IMCU to telemetry on 07/26 -08/04-now having runs of Afib in 120s-150s, symptomatic, given Diltiazem 20 mg IV bolus with HR back down to 80s-90s so will hold titration drip at this time, consider starting drip if RVR recurs -08/05-Dr. Quinones increasing Coreg dose to 6.25 mg BID, adding Corlanor 5 mg BID; Dr. Escalante recommends not a candidate for surgery at this time, may be candidate in future if EF improves -08/06-Dr. Quinones okay with discharge if HR remains <110 bpm. Plan for f/u outpatient with Stacie in 2 weeks. Take BP in legs for more accurate assessment. 2. New-Onset CHF 2/2 CAD -IV Lasix [address] Hills; appreciate rec's -Echo revealed EF 15-20% - HPI and initial physical exam consistent w/ classic findings of CHF -BNP: 1096 --> 2722 --> 860 (07/27) -Statin therapy started -Heart failure clinic has seen and evaluated patient, per protocol have instructed patient will need follow up with Dr. Quinones within 2 weeks after discharge unless Dr. Quinones desires patient to see HF clinic first, appreciate recs - Repeat CXR on 07/30 showed stable R pleural effusion - no pocket appreciated for possible thoracentesis on U/S, 07/30 - 07/31 patient near euvolemia, last 2 BPs have been low, will continue to monitor. Will hold losartan if needed. - consider Chest CT of R pleural effusion if respiratory status worsens 3. Sinusitis -2 week hx of sinus pressure and nasal congestion. Possible illness recent cause for problems above -Hx of smoking. Possibly some underlying COPD. - d/c levaquin and start doxycycline (07/22-07/27). - Initial CXR revealed R pleural effusion vs pneumonia. Less likely pneumonia as procal negative but will continue to treat for a total of [address] Hills. - Repeat CXR showed continued consolidation in right lower lobe, 07/30 patient with increased O2 requirement up to 3L, repeat CXR revealed stable R pleural effusion. Neg procalcitonin on 07/31 to r/o bacterial pneumonia. O2 requirement has continued to fluctuate between 1-3L. 4. RAUL - resolved -Trend AM BMP 5. Hx of HTN -Hasn't been on medication for 10 years. -Normotensive to hypotensive throughout stay; currently on carvedilol, losartan -Continue to monitor vitals 6. 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 R ICA Stenosis - started Atorvastatin therapy; aspirin 81 mg 8. Hypokalemia - replete with IV KCl as needed - likely due to decreased PO intake 9. Poor PO Intake - initially thought might improve with BM, but patient has since had 2 moderate BMs - has Zofran available prn - will add on scheduled Zofran q6hr - thought to be due to Digoxin - Dr. Hills recs suggest nausea and decreased appetite due to Depression, can consider starting SSRI as an outpatient if symptoms persist - 07/31-30 pt diet fair, drinking supplemental shakes 10. Constipation--resolved -not alleviated with PO Polyethylene glycol. Ordered fleets enema on 07/25. -Patient had 1 BM @ 1700 on 07/25, another 1 BM on 07/26, 2 BMs on 07/27 -continue scheduled PO PEG & Senna Code: FULL Diet: Regular DVT PPx: SCDs & Therapeutic Lovenox Dispo: Stable, admit to telemetry for medication optimization and rate control. Cardio & CV surgery recs opting for medical management. Received life vest yesterday. Monitor for recurrence of RVR. Patient desires discharge but patient' s daughter not comfortable with plan. Await screening for inpatient rehab. Await further discussion between patient and palliative team. Anticipate discharge in <48 hours.
--- NOTE | 2019-08-06 09:35 | PDOC.CPN ---
- Subjective Date: 08/06/19 Time: 09:35 Interval history: The pt seen and examined. No overnight events. No cardiac complaints. - Objective Allergies/Adverse Reactions: Allergies Allergy/AdvReac Type Severity Reaction Status Date / Time Penicillins Allergy Verified 07/21/19 21:45 Visit Medications: Current Medications Acetaminophen (Tylenol) 650 mg PO Q4H PRN PRN Reason: Headache/Fever/Mild Pain (1-3) Last Admin: 07/25/19 17:10 Dose: 650 mg Acetaminophen/Codeine Phosphate (Tylenol #3) 1 tab PO Q4H PRN PRN Reason: Mild Pain (1-3) Acetaminophen/Codeine Phosphate (Tylenol #3) 2 tab PO Q4H PRN PRN Reason: Moderate Pain (4-6) Albuterol/Ipratropium (Duoneb) 3 ml NEB Q4H PRN PRN Reason: Dyspnea Apixaban (Eliquis) 5 mg PO BID [facility] Last Admin: 08/05/19 22:07 Dose: 5 mg Aspirin (Ecotrin) 81 mg PO DAILY [facility] Last Admin: 08/05/19 09:33 Dose: 81 mg Atorvastatin Calcium (Lipitor) 40 mg PO HS [facility] Last Admin: 08/05/19 22:06 Dose: 40 mg Carvedilol (Coreg) 6.25 mg PO BID-WM [facility] Last Admin: 08/05/19 16:58 Dose: 6.25 mg Furosemide (Lasix) 40 mg SLOW IVP 0600 [facility] Last Admin: 08/06/19 05:38 Dose: 40 mg Ibuprofen (Motrin) 200 mg PO BID [facility] Last Admin: 08/05/19 22:06 Dose: 200 mg Ivabradine (Corlanor) 5 mg PO BID [facility] Last Admin: 08/05/19 22:05 Dose: 5 mg Loratadine (Claritin) 10 mg PO DAILYPRN PRN PRN Reason: Allergies Losartan Potassium (Cozaar) 25 mg PO DAILY [facility] Last Admin: 08/05/19 09:33 Dose: 25 mg Menthol/Methyl Salicylate (Muscle Rub Cream (Bengay)) 1 gm TOP QID PRN PRN Reason: Muscle Pain Last Admin: 07/25/19 06:20 Dose: 1 gm Nitroglycerin (Nitrostat) 0.4 mg SL Q5MIN PRN PRN Reason: Chest Pain Ondansetron HCl (Zofran) 4 mg IVP Q6H [facility] Last Admin: 08/06/19 04:49 Dose: Not Given Polyethylene Glycol (Miralax) 17 gm PO DAILY [facility] Last Admin: 08/05/19 09:34 Dose: 17 gm Senna/Docusate Sodium (Senokot S) 2 tab PO BID PRN PRN Reason: Constipation Last Admin: 07/24/19 13:29 Dose: 2 tab Senna/Docusate Sodium (Senokot S) 1 tab PO BID [facility] Last Admin: 08/05/19 22:06 Dose: 1 tab Sodium Chloride (Flush - Normal Saline) 10 ml IVF PRN PRN PRN Reason: Saline Flush Last Admin: 08/01/19 09:11 Dose: 10 ml Vital Signs & Weight: Vital Signs Temp Pulse Resp BP Pulse Ox 08/06/19 04:05 97.8 F 78 20 128/71 97 Admit Weight 162 lb 9 oz Weight 132 lb - Quality Measures CV meds: Beta Zahida: Yes (copd), CHEY/ARB: Yes (renal insuff.), Statin: Yes, ASA: Yes - Physical Exam General: alert & oriented x3 HEENT: mucus membranes moist Cardiac: irregularly regular, S1/S2 Lungs: decreased breath sounds Neuro: cranial nerve 2-12 intact Skin: clear Musculoskeletal: normal range of motion - Labs Result Diagrams: 08/06/19 04:22 08/06/19 04:22 Troponin/CKMB Troponin I 0.071 ng/mL (< 0.028) H 07/27/19 10:18 - Telemetry Supraventricular conduction: atrial fibrillation - Assessment/Plan Assessment/Plan: 1. CAD with s/p LHC on 07/29/2019 with 90% in prox LAD, 95% in 1st diag, 75% in prox Lt Cx, 75% in prox RCA, 70% in dist RCA, 90% in PDA, 50% in 3rd RPL, and EF 25% - On Coreg, Losartan, ASA, and Statin; Had Viability Study yesterday and the results indicate no viabilty in the inferior wall. Consulted by Dr Escalante and cont. medical tx and follow up within a few months to eval EF improvement since High risk due to severe decr. EF and heavy calcium. per the note she may be a candidate once the EF improves. 2. New-Onset A-Fib w/ RVR - HR has been elevated; will start Digoxin 0.125mg daily from today with Corlanor 5mg BID, Eliquis 5mg BID, and Coreg 6.25mg BID 3. 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 LifeVest at discharge 4 RAUL - resolved. 5 HTN - stable with current med 6. Hx of Rt ICA stenosis 7. Tobacco abuse - smoking cessation advised. 8. Severe PVD. BP is being measured in the legs. There was a 60mmHg difference in the central BP and the Aortic pressure. MAR reviewed * Once the pt's HR is stable, the pt can be d/mello with Life Vest. The pt will f /u with Dr Quinones' office within 2wks and Echo in 1 month Pt. seen and eval. by me. I agree with the A/P by the [employer]. She feels better and no c/o's from a cardiac point . Chest : right basil rales/rhonchi ,improve with coughing. Irreg/irreg. rhythm. No edema. Good plan to send the pt. to rehab. I will see her back in the office in 1-2 weeks. For now rate control is reasonable. If the EF improves then consider CABG, if not, then AICD and medical treatment only.
[2019-08-06] MEDS: Apixaban 5 MG TAB PO SCH (09:44)
[2019-08-06] MEDS: Carvedilol 3.125 MG TAB PO SCH ×2 (09:44→16:29)
[2019-08-06] MEDS: Ivabradine 5 MG TAB PO SCH (09:44)
[2019-08-06] MEDS: Losartan 25 MG TAB PO SCH (09:45)
[2019-08-06] MEDS: Ibuprofen 200 MG TAB PO SCH (09:45)
[2019-08-06] MEDS: Aspirin 81 mg Enteric Coated Tablet PO SCH (09:45)
[2019-08-06] MEDS: Senokot S 8.6-50 MG TAB PO SCH (09:45)
[2019-08-06] MEDS ORDERED: Digoxin 0.125 MG TAB PO SCH ×2 (09:45→10:00)
[2019-08-06] MEDS: Polyethylene Glycol 3350 17 GM Packet PO SCH (09:45)
--- NOTE | 2019-08-06 11:20 | PRG ---
DATE OF SERVICE: 08/06/2019 Ms. Augustin continues to look and feel back to her baseline. We are awaiting placement with Case Management. We obtained Palliative Care consultation and we appreciate their input. Ms. Augustin is likely going to inpatient rehab for at least several days to regain some strength from deconditioning. We will continue the medical management of her very serious coronary artery disease and heart failure. Job ID: [id number]
[2019-08-06 16:12] VITALS: TEMP 99.5
[2019-08-06 16:23] VITALS: BP 162/78
--- NOTE | 2019-08-07 03:34 | DIS ---
DATE OF ADMISSION: 07/21/2019 DATE OF DISCHARGE: 08/06/2019 RESIDENT: Tammi Gross DO. ADMITTING ATTENDING: Oralia Major MD. DISCHARGE ATTENDING: Michel Palumbo MD. CONSULTS: 1. Cardiology, Dr. Quinones. 2. Cardiovascular Surgery, Dr. Festus No and Dr. Escalante. 3. Pulmonology, Dr. Hills. 4. Case Management. 5. Cardiac Rehab Inpatient. 6. Cardiac Rehab Outpatient. 7. CV team. 8. Heart Failure Clinic. 9. Palliative Care Team. 10. Physical Therapy. 11. Occupational Therapy. 12. Rehab screening. PROCEDURES: 1. Chest x-ray on July 21, 2019: Cardiomegaly with diffuse lower lung infiltrates. 2. EKG on July 21, 2019: Atrial fibrillation with rapid ventricular rate. 3. Bilateral carotid duplex ultrasounds: Moderate (50% to 69%) stenosis of the right ICA. 4. Echocardiogram on July 22, 2019: Ejection fraction estimated at 15 % to 20%. Overall left ventricular function is severely depressed. LVH. Restrictive filling pattern. Normal size right ventricle cavity. The left atrium is moderately dilated. Mildly enlarged right atrium size. Mitral annular calcifications present. [id number] mitral regurgitation is present. Aortic valve appears tricuspid. Mild tricuspid regurgitation. IVC dilated. Atrial fibrillation. 5. Chest x-ray on July 28, 2019, continued consolidation in right lower lobe. 6. Chest x-ray on July 30, 2019: No change in chest x-ray from July 28, 2019. 7. Cardiac cath on July 29, 2019: Severely impaired ventricular function. Multivessel coronary artery disease including diffuse PVD. Diffuse coronary calcium. 90% stenosis of proximal LAD. 95% stenosis on the LAD first diagonal. 75% stenosis of left circumflex. 75% stenosis of proximal RCA. 70% stenosis of distal RCA. 8. Myocardial perfusion scan on August 02, 2019: Nonviable myocardial scar at the left ventricular inferior wall and apex. Immediate images show moderate sized area of markedly diminished thallium uptake at the inferior wall and apex. On the 24-hour delayed images, there is no improvement on thallium uptake. In fact, the uptake has decreased slightly. PRIMARY DIAGNOSES: 1. New onset atrial fibrillation with rapid ventricular response. 2. New onset congestive heart failure with reduced ejection fraction. SECONDARY DIAGNOSES: 1. Coronary artery disease. 2. Sinusitis. 3. Acute kidney injury. 4. Hypertension. 5. Tobacco abuse. 6. Right ICA stenosis. 7. Hypokalemia. 8. Poor p.o. intake. 9. Constipation. DISCHARGE MEDICATIONS: 1. Acetaminophen 650 mg p.o. q.4 hours p.r.n. for pain. 2. Apixaban (Eliquis) 5 mg p.o. b.i.d. 3. Aspirin 81 mg p.o. daily. 4. Atorvastatin 40 mg p.o. at bedtime. 5. Carvedilol (Coreg) 6.25 mg p.o. b.i.d. with meals. 6. Furosemide 40 mg p.o. daily. 7. Ibuprofen 200 mg p.o. b.i.d. 8. Losartan (Cozaar) 25 mg p.o. daily. 9. Nitroglycerin 0.4 mg sublingual q.5 minutes p.r.n. for chest pain. 10. Ondansetron 4 mg p.o. q.4 hour p.r.n. 11. Multivitamin (Women's Daily Formula tablet) one tablet p.o. daily. DISCONTINUED MEDICATIONS: 1. Diltiazem 125 mg IVPB drip. 2. Levaquin 750 mg IVPB q.24 hour x2 doses. 3. Loratadine (Claritin) 10 mg p.o. daily p.r.n. 4. Mucinex DM one tab p.o. q.12 hour. 5. Lovenox 75 mg subcu b.i.d. 6. Bengay muscle rub cream topical q.i.d. p.r.n. 7. MiraLAX 1 cap p.o. daily. 8. Senokot two tabs p.o. b.i.d. 9. Doxycycline 100 mg p.o. b.i.d. from July 22 to . 10. Amiodarone drip. 11. Digoxin 0.5 mg p.o. q.a.m. 12. Digoxin 0.25 mg p.o. q.a.m. 13. Corlanor 5 mg b.i.d. HISTORY OF PRESENT ILLNESS/HOSPITAL COURSE: Patient is a 74-year-old female with no known past medical history, who comes in with complaints of feeling weak and 2 weeks of sinus congestion. Patient reports having some shortness of breath, denies productive or dry cough. Patient states she is having postnasal drip in her throat. She denied any chest pain at that time, but did report swelling in her feet. Patient always sleeps with her head elevated. The patient reports feeling more tired over the last 2 weeks. Patient's son reports that when she came to visit him a week ago, she was very sleepy and more tired than usual. The patient states she was diagnosed with hypertension at age 18, but states that at her nursing home physical at age 64, they took her off her blood pressure medication. She has since never seen a doctor since the age of 64. In the emergency room, she was found on EKG to be in atrial fibrillation with rapid ventricular rate. On chest x-ray, the patient was found to have cardiomegaly with diffuse lower lung infiltrates. The patient admits to smoking 6 to 10 cigarettes a day and has been smoking since age of 32. She is an occasional beer drinker. The patient was placed on a diltiazem drip, which was continued to be adjusted as needed. She was admitted to the [facility] for close monitoring. The patient was started on treatment for sinusitis with suspected pneumonia on Levaquin. She was started on symptomatic treatment with loratadine and Mucinex. A few hours after admission, resident team was called to the patient's room as she reported feeling more weak and her blood pressure was 70/40. The patient's oxygen sat was also down to low 90% on room air. The patient's heart rate was ranging from low 100s to greater than 120. The diltiazem drip at a rate of 10. At this time , the diltiazem drip was stopped and the patient was given 250 mL bolus. Heart rate remained stable from 100s to 110s and the patient's oxygen sat improved to 95% to 100% on 2 L. As the patient was being monitored and boluses being administered , the blood pressure was starting to rise at 80 to 90 over 60. At this time, the diltiazem drip was discontinued and the patient was started on an amiodarone drip. Later on in the morning on July 22, 2019, Cardiology was consulted. Dr. Quinones recommended loading the patient with digoxin. The patient's echocardiogram returned revealing a restrictive filling pattern when the ejection fraction of 15% to 20% . The patient remained rate controlled, but her blood pressures remained low. At that time, heart cath was deferred until her heart failure became better controlled. Dr. Hills with pulmonology was consulted for the patient's new onset congestive heart failure and he recommended Lasix daily. At this time, the patient's Levaquin was discontinued and she was started on doxycycline. The carotid Doppler study was obtained revealing right ICA stenosis and the patient was subsequently started on statin therapy as well as aspirin 81 mg daily. Due to continued low blood pressures over the following two days, the patient's amiodarone drip was then discontinued. The patient's main complaint during the first half of her stay regarded her feeling constipated. She was started on a bowel regimen of MiraLAX, but this did not relieve her symptoms. She was then ordered a soap fleets enema and subsequently had a large BM. She was then continued on a regimen of MiraLAX and senna scheduled which resolved her constipation with daily BMs. Patient additionally complained of decreased appetite and nausea throughout her stay and the etiology of her nausea was thought to be due to digoxin as her nausea began to improve after a few days after her digoxin was held starting on July 27, 2019. Due to the patient's continued requirement of oxygen, cough and rhonchi noted on lung exam. A repeat chest x- ray was obtained on July 28, 2019, which revealed continued right lower lobe pleural effusion/consolidation. This will have to be worked up further as an outpatient if symptoms continue. On July 29, 2019, the patient was near euvolemia and it was decided that she was clinically stable enough to undergo a heart catheterization by Dr. Quinones. During this procedure, she was found to have severe blockage of the major arteries of her heart. See cath report above under procedures. It was then planned for the patient to have a cardiac viability study on August 02, 2019. Ultimately, this scan showed nonviable tissue in the inferior and apex regions of the heart. Dr. Escalante with Cardiovascular Surgery evaluated the patient and determined that she was not a candidate for surgery at this time, but could consider it if her EF were to improve. Ultimately, the Cardiology and cardiovascular team decided to opt for medical management at this time with close followup with the patient as an outpatient. Discharge planning was initiated, but then on August 04, 2019, telemetry showed runs of AFib from 120s up to 180s. The patient overall did not feel well, said "something isn't right" and stated that her left arm felt heavy. At that time, she was restarted with a diltiazem bolus. Her heart rate came back down into the 90s to low one 100s and so the diltiazem drip was held off on starting. Patient was stable the following two days and was ultimately restarted on increased dose of Coreg, Corlanor, and digoxin. On August 06, 2019, the patient was screened for inpatient rehab and accepted for continued daily physical therapy and strengthening. Her heart rate continued to remain below 120 with only occasional runs above that which lasted seconds at a time and during which the patient was asymptomatic. The patient was deemed clinically stable for discharge to the inpatient rehab facility on the afternoon of August 06, 2019. DISPOSITION: Stable. DISCHARGE INSTRUCTIONS: 1. Location: Inpatient rehab. 2. Diet: Heart healthy. 3. Activity: As tolerated. 4. Continue daily physical therapy and occupational therapy. 5. Follow up with cardiac rehab in [place] in one week. 6. Follow up with [facility]. 7. Follow up with JIA Orozco, new PCP for patient in [place]. 8. Follow up with Dr. Quinones, Cardiology, in 2 to 3 weeks. 9. LifeVest given to patient upon discharge. Job ID: [id number] [id number]
[2019-08-07] MEDS ORDERED: Digoxin 0.125 MG TAB PO SCH (09:00)
== END 2019-08-06 17:30 | DRG 280 ==
LOC: ERS 18:28 → IMCU/EMU 21:17 → 2NO 07-26 18:33
PROVIDERS: ADMIT Student in an Organized Health Care Education/Training Program; ATTEND Student in an Organized Health Care Education/Training Program
PROC: 4A023N7 Measurement of Cardiac Sampling and Pressure, Left Heart, Percutaneous Approach (ICD-10-PCS; principal; 2019-07-29)
PROC: B2151ZZ Fluoroscopy of Left Heart using Low Osmolar Contrast (ICD-10-PCS; 2019-07-29)
PROC: B2111ZZ Fluoroscopy of Multiple Coronary Arteries using Low Osmolar Contrast (ICD-10-PCS; 2019-07-29)
DX: I48.91 Unspecified atrial fibrillation (principal); I21.A1 Myocardial infarction type 2; J96.01 Acute respiratory failure with hypoxia; I50.21 Acute systolic (congestive) heart failure; N17.9 Acute kidney failure, unspecified; I13.0 Hypertensive heart and chronic kidney disease with heart failure and stage 1 through stage 4 chronic kidney disease, or unspecified chronic kidney disease; J90 Pleural effusion, not elsewhere classified; E87.3 Alkalosis; J32.9 Chronic sinusitis, unspecified; Z51.5 Encounter for palliative care; N18.9 Chronic kidney disease, unspecified; F17.210 Nicotine dependence, cigarettes, uncomplicated; I65.21 Occlusion and stenosis of right carotid artery; I73.9 Peripheral vascular disease, unspecified; I25.10 Atherosclerotic heart disease of native coronary artery without angina pectoris; E87.6 Hypokalemia; K59.00 Constipation, unspecified; I47.2 Ventricular tachycardia; I95.9 Hypotension, unspecified; Z88.0 Allergy status to penicillin; Z90.49 Acquired absence of other specified parts of digestive tract; Z79.899 Other long term (current) drug therapy
CPT/HCPCS: 36415; 71046; 78466; 80048; 80053; 80061; 80162; 83735; 83880; 84100; 84145; 84443; 84484; 85025; 85347; 85520; 93005; 93010; 93306; 93458; 93798; 93880; 94640; 99152; 99153; A9505; C1769; J0282; J0360; J1160; J1644; J1650; J1940; J2001; J2250; J2405; J3010; J3480; J3490; J7050; J7070; J7620

== ENCOUNTER 2019-08-06 21:37 | Emergency (ER) | payer MEDICARE, BC ==
[2019-08-06 23:17] LABS: #Basophils 0.1 thou/uL (0.0-0.2); #Eosinphils 0.1 thou/uL (0.0-0.7); #Lymphocytes 1.9 thou/uL (1.20-3.40); #Monocytes 1.9 thou/uL (0.11-0.59); #Neutrophils 14.3 thou/uL (1.40-6.50); %Basophils 0.4 % (0.0-1.0); %Eosinophils 0.5 % (0.0-10.0); %Lymphocytes 10.4 % (21.0-51.0); %Monocytes 10.4 % (0.0-10.0); %Neutrophils 78.3 % (42.0-75.0); Hemoglobin 14.2 g/dL (12.0-16.0); Mean Corpuscular HGB CONC 33.7 g/dL (32.0-36.0); Mean Corpuscular Hemoglobin 30.9 pg (27.0-31.0); Mean Corpuscular Volume 91.7 fL (78.0-98.0); Mean Platelet Volume 8.9 fL (7.4-10.4); Platelet Count 430 thou/uL (130-400); RBC Distribution Width 14.2 % (11.5-14.5); Red Blood Cell (RBC) Count 4.61 mill/uL (4.20-5.40); White Blood Cell (WBC) Count 18.2 thou/uL (4.8-10.8)
[2019-08-06 23:38] LABS: ALT (SGPT) 18 U/L (8-55); AST (SGOT) 26 U/L (5-34); Albumin 4.2 g/dL (3.4-4.8); Alkaline Phosphatase 88 U/L (40-110); Anion Gap 20 mmol/L (10-20); BUN (Urea Nitrogen) 24 mg/dL (9.8-20.1); Bilirubin, Total 1.7 mg/dL (0.2-1.2); Calc. Creatinine Clearance 0 mL/min (70-130); Calcium 9.7 mg/dL (7.8-10.44); Carbon Dioxide 32 mmol/L (23-31); Chloride 87 mmol/L (98-107); Estimated GFR-MDRD 52; Globulin 2.9 g/dL (2.4-3.5); Glucose 90 mg/dL (83-110); Magnesium 1.8 mg/dL (1.6-2.6); Potassium 3.6 mmol/L (3.5-5.1); Protein, Total 7.1 g/dL (6.0-8.3); Sodium 135 mmol/L (136-145)
--- NOTE | 2019-08-06 23:42 | RAD ---
XR Chest 1 View Portable HISTORY: Hypotension COMPARISON: 07/21/2019 study FINDINGS: Heart size appears enlarged with increased interstitial lung changes which appear chronic i n nature. There are atherosclerotic changes of the aorta. IMPRESSION: Cardiomegaly with chronic appearing lung change.
[2019-08-07] LABS: CKMB 1.5 ng/mL (0-6.6)
== END 2019-08-07 01:04 ==
LOC: ERS 21:37
DX: I48.91 Unspecified atrial fibrillation (principal); I10 Essential (primary) hypertension; F17.210 Nicotine dependence, cigarettes, uncomplicated; Z79.899 Other long term (current) drug therapy
CPT/HCPCS: 71045; 80162; 82553; 83735; 83880; 84484; 93005

== ENCOUNTER 2021-07-10 11:51 | Inpatient (IN) | payer MEDICARE, BC ==
[2021-07-10 12:34] LABS: #Lymphocytes 1.4 thou/uL (1.20-3.40); #Monocytes 0.8 thou/uL (0.11-0.59); #Neutrophils 13.5 thou/uL (1.40-6.50); %Basophils 0.3 % (0.0-1.0); %Eosinophils 0.3 % (0.0-10.0); %Lymphocytes 9.1 % (21.0-51.0); %Monocytes 4.8 % (0.0-10.0); %Neutrophils 85.5 % (42.0-75.0); Hemoglobin 10.3 g/dL (12.0-16.0); Mean Corpuscular HGB CONC 34.1 g/dL (32.0-36.0); Mean Corpuscular Hemoglobin 33.3 pg (27.0-31.0); Mean Corpuscular Volume 97.4 fL (78.0-98.0); Mean Platelet Volume 8.1 fL (7.4-10.4); Platelet Count 212 thou/uL (130-400); RBC Distribution Width 12.9 % (11.5-14.5); Red Blood Cell (RBC) Count 3.09 mill/uL (4.20-5.40); White Blood Cell (WBC) Count 15.7 thou/uL (4.8-10.8)
[2021-07-10 13:06] LABS: ALT (SGPT) 15 U/L (8-55); AST (SGOT) 18 U/L (5-34); Albumin 3.8 g/dL (3.4-4.8); Alkaline Phosphatase 82 U/L (40-110); Anion Gap 13 mmol/L (10-20); BUN (Urea Nitrogen) 26 mg/dL (9.8-20.1); Bilirubin, Total 0.6 mg/dL (0.2-1.2); Calc. Creatinine Clearance 0 mL/min (70-130); Calcium 9.3 mg/dL (7.8-10.44); Carbon Dioxide 27 mmol/L (23-31); Globulin 2.4 g/dL (2.4-3.5); Glucose 114 mg/dL (83-110); Protein, Total 6.2 g/dL (5.8-8.1)
[2021-07-10 13:13] LABS: Chloride 104 mmol/L (98-107); Potassium 4.1 mmol/L (3.5-5.1); Sodium 140 mmol/L (136-145)
[2021-07-10 14:58] LABS: Actual Bicarbonate (HCO3a) 22.2 mEq/L (22-28); Analyzer IN Cardio ER; Base Excess (BEa) -1.7 mEq/L (-2.0 to +3.0); CO2 Tension 34.1 mmHg (35.0-45.0); Carboxyhemoglobin (COHb) 0.2 gm% (0.0-3.0); Hemoglobin (Hb) 9.8 g/dL (12.0-16.0); O2 Tension (PaO2), arterial 74.6 mmHg (> 70.0); Potassium - ABG Lab 3.53 mmol/L (3.70-5.30); pH, Arterial 7.43 (7.35-7.45)
[2021-07-10 15:01] LABS: ALV-art Gradient 32.505 mmHg (0-20); Puncture Site RRA
[2021-07-10 16:18] LABS: Bacteria/HPF None Seen HPF (None Seen); Bilirubin Negative (Negative); Blood, Urine 1+ (Negative); Clarity Clear (Clear); Glucose, Urine (Dipstick) Normal (Negative); Ketone, Urine Negative (Negative); Leukocyte Negative Leu/uL (Negative); Nitrite Negative (Negative); Protein, Urine (Dipstick) Negative (Neg-Trace); RBC/HPF 0-3 HPF (0-3); Squamous Epithelial 0-3 HPF (0-3); Urobilinogen Normal mg/dL (Less than 2); WBC/HPF 0-3 HPF (0-3); pH, Urine 5.5 (5.0-9.0)
[2021-07-10] MEDS ORDERED: Ondansetron PF 4 MG/2 ML Vial IVP PRN (18:26)
[2021-07-10] MEDS ORDERED: Nitroglycerin 0.4 MG TAB (25 Tab Bottle) SL PRN (18:40)
[2021-07-10 18:58] LABS: SARS-CoV-2 NAA Rapid Test Not Detected (NotDetected)
[2021-07-10 19:01] LABS: Hemoglobin 9.2 g/dL (12.0-16.0); Mean Corpuscular HGB CONC 33.8 g/dL (32.0-36.0); Mean Corpuscular Hemoglobin 33.1 pg (27.0-31.0); Mean Corpuscular Volume 97.7 fL (78.0-98.0); Mean Platelet Volume 8.2 fL (7.4-10.4); Platelet Count 191 thou/uL (130-400); RBC Distribution Width 12.9 % (11.5-14.5); Red Blood Cell (RBC) Count 2.77 mill/uL (4.20-5.40); White Blood Cell (WBC) Count 14.3 thou/uL (4.8-10.8)
[2021-07-10 19:15] LABS: Lymphocytes 11 % (21-51); MDiff Complete? YES; Monocytes 6 % (0-10); Neutrophil 83 % (42-75); Platelet Morphology Comment Appears Adequate; Polychromasia SLIGHT = 2-3 cells (100X) (0-2/hpf)
[2021-07-10 19:18] LABS: ALT (SGPT) 15 U/L (8-55); AST (SGOT) 15 U/L (5-34); Albumin 3.4 g/dL (3.4-4.8); Alkaline Phosphatase 76 U/L (40-110); Anion Gap 12 mmol/L (10-20); BUN (Urea Nitrogen) 24 mg/dL (9.8-20.1); Bilirubin, Total 0.5 mg/dL (0.2-1.2); Calc. Creatinine Clearance 0 mL/min (70-130); Calcium 8.6 mg/dL (7.8-10.44); Carbon Dioxide 25 mmol/L (23-31); Chloride 109 mmol/L (98-107); Globulin 2.2 g/dL (2.4-3.5); Glucose 92 mg/dL (83-110); Potassium 3.6 mmol/L (3.5-5.1); Protein, Total 5.6 g/dL (5.8-8.1); Sodium 142 mmol/L (136-145)
[2021-07-10] MEDS ORDERED: Carvedilol 6.25 MG TAB PO SCH (21:00)
[2021-07-10] MEDS: Sodium Chloride 0.9% 1,000 ML IV SCH (22:13)
[2021-07-10] MEDS ORDERED: Pantoprazole 40 MG VIAL ONE (23:08)
[2021-07-10 23:30] LABS: Hemoglobin 8.9 g/dL (12.0-16.0); Platelet Count 186 thou/uL (130-400)
[2021-07-10] MEDS: Atorvastatin Calcium 40 MG TAB PO SCH (23:55)
[2021-07-10] MEDS: Pantoprazole 40 MG VIAL IVP SCH (23:56)
[2021-07-11 07:21] LABS: INR-International Normal Ratio 1.2; Prothrombin Time 15.3 sec (12.0-14.7)
[2021-07-11] MEDS: Carvedilol 6.25 MG TAB PO SCH ×2 (08:03→17:00)
[2021-07-11] MEDS ORDERED: Furosemide 40 MG TAB PO SCH (09:00)
[2021-07-11] MEDS ORDERED: Losartan 25 MG TAB PO SCH (09:00)
[2021-07-11] MEDS: Sodium Chloride 0.9% 1,000 ML IV SCH ×3 (09:25→19:10)
[2021-07-11] MEDS ORDERED: Pantoprazole 40 MG VIAL ONE (09:26)
[2021-07-11] MEDS: Pantoprazole 40 MG VIAL IVP SCH ×2 (09:38→20:06)
[2021-07-11 16:35] VITALS: BMI 23.2
[2021-07-11] MEDS ORDERED: Sodium Chloride 0.9% 1,000 ML IV SCH (17:39)
[2021-07-11] MEDS: Atorvastatin Calcium 40 MG TAB PO SCH (20:06)
[2021-07-12] MEDS: Sodium Chloride 0.9% 1,000 ML IV SCH ×2 (02:02→13:23)
[2021-07-12 04:53] LABS: #Basophils 0.1 thou/uL (0.0-0.2); #Eosinphils 0.3 thou/uL (0.0-0.7); #Monocytes 0.8 thou/uL (0.11-0.59); #Neutrophils 8.5 thou/uL (1.40-6.50); %Basophils 1.3 % (0.0-1.0); %Eosinophils 2.5 % (0.0-10.0); %Lymphocytes 16.7 % (21.0-51.0); %Monocytes 6.7 % (0.0-10.0); %Neutrophils 72.9 % (42.0-75.0); Hemoglobin 7.1 g/dL (12.0-16.0); Mean Corpuscular HGB CONC 35.7 g/dL (32.0-36.0); Mean Corpuscular Hemoglobin 34.4 pg (27.0-31.0); Mean Corpuscular Volume 96.4 fL (78.0-98.0); Mean Platelet Volume 8.6 fL (7.4-10.4); Platelet Count 165 thou/uL (130-400); RBC Distribution Width 13.2 % (11.5-14.5); Red Blood Cell (RBC) Count 2.05 mill/uL (4.20-5.40); White Blood Cell (WBC) Count 11.7 thou/uL (4.8-10.8)
[2021-07-12 05:17] LABS: Anion Gap 13 mmol/L (10-20); BUN (Urea Nitrogen) 23 mg/dL (9.8-20.1); Calc. Creatinine Clearance 76 mL/min (70-130); Calcium 8.1 mg/dL (7.8-10.44); Carbon Dioxide 18 mmol/L (23-31); Chloride 112 mmol/L (98-107); Glucose 87 mg/dL (83-110); Potassium 3.5 mmol/L (3.5-5.1); Sodium 139 mmol/L (136-145)
[2021-07-12] MEDS ORDERED: Fentanyl 100 MCG/2 ML VIAL ONE (07:59)
[2021-07-12] MEDS ORDERED: Ketamine 50 MG/ML (10ML VIAL) ONE (08:11)
[2021-07-12] MEDS ORDERED: Promethazine HCl 25 MG/ML VIAL IVPB PRN (08:37)
[2021-07-12] MEDS ORDERED: Promethazine HCl 25 MG/ML VIAL IM PRN (08:37)
[2021-07-12] MEDS ORDERED: Ondansetron HCl/PF 4 MG/2 ML Vial IVP PRN (08:37)
[2021-07-12] MEDS: Carvedilol 6.25 MG TAB PO SCH ×2 (11:17→16:12)
[2021-07-12 15:47] LABS: Hemoglobin 6.7 g/dL (12.0-16.0)
[2021-07-12] MEDS: Atorvastatin Calcium 40 MG TAB PO SCH ×2 (21:22→21:24)
[2021-07-13 06:57] LABS: #Eosinphils 0.1 thou/uL (0.0-0.7); #Lymphocytes 2.2 thou/uL (1.20-3.40); #Monocytes 1.2 thou/uL (0.11-0.59); #Neutrophils 13.9 thou/uL (1.40-6.50); %Basophils 0.2 % (0.0-1.0); %Eosinophils 0.3 % (0.0-10.0); %Lymphocytes 12.9 % (21.0-51.0); %Monocytes 6.7 % (0.0-10.0); %Neutrophils 79.9 % (42.0-75.0); Hemoglobin 7.5 g/dL (12.0-16.0); Mean Corpuscular HGB CONC 33.5 g/dL (32.0-36.0); Mean Corpuscular Hemoglobin 32.3 pg (27.0-31.0); Mean Corpuscular Volume 96.5 fL (78.0-98.0); Mean Platelet Volume 8.4 fL (7.4-10.4); Platelet Count 149 thou/uL (130-400); RBC Distribution Width 13.7 % (11.5-14.5); Red Blood Cell (RBC) Count 2.32 mill/uL (4.20-5.40); White Blood Cell (WBC) Count 17.4 thou/uL (4.8-10.8)
[2021-07-13] MEDS: Carvedilol 6.25 MG TAB PO SCH (09:27)
[2021-07-13] MEDS: Sodium Chloride 0.9% 1,000 ML IV SCH (09:28)
[2021-07-13 13:58] LABS: Hemoglobin 7.5 g/dL (12.0-16.0)
[2021-07-13] MEDS ORDERED: Sodium Chloride 0.9% 1,000 ML IV SCH (17:15)
[2021-07-13] MEDS: Atorvastatin Calcium 40 MG TAB PO SCH (21:05)
[2021-07-14] MEDS ORDERED: Sodium Chloride 0.9% 1,000 ML IV SCH (01:00)
[2021-07-14 04:26] LABS: #Basophils 0.1 thou/uL (0.0-0.2); #Eosinphils 0.3 thou/uL (0.0-0.7); #Lymphocytes 2.5 thou/uL (1.20-3.40); #Neutrophils 7.9 thou/uL (1.40-6.50); %Basophils 0.5 % (0.0-1.0); %Eosinophils 2.8 % (0.0-10.0); %Monocytes 8.3 % (0.0-10.0); %Neutrophils 67.3 % (42.0-75.0); Hemoglobin 7.3 g/dL (12.0-16.0); Mean Corpuscular HGB CONC 34.5 g/dL (32.0-36.0); Mean Corpuscular Hemoglobin 33.5 pg (27.0-31.0); Mean Corpuscular Volume 97.1 fL (78.0-98.0); Mean Platelet Volume 8.3 fL (7.4-10.4); Platelet Count 157 thou/uL (130-400); RBC Distribution Width 14.5 % (11.5-14.5); Red Blood Cell (RBC) Count 2.17 mill/uL (4.20-5.40); White Blood Cell (WBC) Count 11.7 thou/uL (4.8-10.8)
[2021-07-14] MEDS ORDERED: Polyethylene Glycol 3350 17 GM Packet PO PRN (09:52)
[2021-07-14] MEDS ORDERED: Potassium Chloride 20 MEQ TAB PO SCH (10:15)
[2021-07-14] MEDS: Carvedilol 3.125 MG TAB PO SCH (16:38)
[2021-07-14] MEDS: Atorvastatin Calcium 40 MG TAB PO SCH (21:17)
[2021-07-15 05:36] LABS: #Basophils 0.1 thou/uL (0.0-0.2); #Eosinphils 0.3 thou/uL (0.0-0.7); #Lymphocytes 1.7 thou/uL (1.20-3.40); #Monocytes 1.3 thou/uL (0.11-0.59); #Neutrophils 8.3 thou/uL (1.40-6.50); %Basophils 0.7 % (0.0-1.0); %Eosinophils 2.9 % (0.0-10.0); %Lymphocytes 14.8 % (21.0-51.0); %Monocytes 10.7 % (0.0-10.0); %Neutrophils 70.9 % (42.0-75.0); Hemoglobin 7.3 g/dL (12.0-16.0); Mean Corpuscular HGB CONC 33.5 g/dL (32.0-36.0); Mean Corpuscular Hemoglobin 32.4 pg (27.0-31.0); Mean Corpuscular Volume 96.9 fL (78.0-98.0); Mean Platelet Volume 9.3 fL (7.4-10.4); Platelet Count 170 thou/uL (130-400); RBC Distribution Width 14.2 % (11.5-14.5); Red Blood Cell (RBC) Count 2.26 mill/uL (4.20-5.40); White Blood Cell (WBC) Count 11.7 thou/uL (4.8-10.8)
[2021-07-15 05:59] LABS: Anion Gap 12 mmol/L (10-20); BUN (Urea Nitrogen) 12 mg/dL (9.8-20.1); Calc. Creatinine Clearance 75 mL/min (70-130); Calcium 8.3 mg/dL (7.8-10.44); Carbon Dioxide 20 mmol/L (23-31); Chloride 110 mmol/L (98-107); Glucose 83 mg/dL (83-110); Magnesium 1.8 mg/dL (1.6-2.6); Phosphorus 2.5 mg/dL (2.3-4.7); Potassium 3.9 mmol/L (3.5-5.1); Sodium 138 mmol/L (136-145)
[2021-07-15] MEDS: Carvedilol 3.125 MG TAB PO SCH ×2 (08:30→17:01)
[2021-07-15] MEDS ORDERED: Digoxin 0.125 MG TAB PO SCH (09:00)
[2021-07-15] MEDS ORDERED: Magnesium 2 GM/50 ML 2 GM in Premix Bag 1 BAG IVPB SCH (09:00)
[2021-07-15] MEDS ORDERED: Acetaminophen 325 MG TAB PO PRN (10:18)
[2021-07-15] MEDS: Potassium Chloride 10 MEQ TAB PO SCH (17:01)
[2021-07-15] MEDS: Atorvastatin Calcium 40 MG TAB PO SCH (20:31)
[2021-07-16] MEDS: Digoxin 0.125 MG TAB PO SCH (09:01)
[2021-07-16] MEDS: Carvedilol 3.125 MG TAB PO SCH ×2 (09:02→16:33)
[2021-07-16] MEDS: Potassium Chloride 10 MEQ TAB PO SCH (09:02)
[2021-07-16] MEDS: Atorvastatin Calcium 40 MG TAB PO SCH (20:56)
[2021-07-17] MEDS: Carvedilol 3.125 MG TAB PO SCH (10:01)
[2021-07-17] MEDS: Digoxin 0.125 MG TAB PO SCH (10:01)
[2021-07-17 16:05] VITALS: TEMP 97.3
[2021-07-17 16:07] VITALS: BP 156/70
== END 2021-07-17 16:19 | disposition home health service (06) | DRG 378 ==
LOC: ERS 11:51 → ERHOLD 13:59 → 2NO 07-11 16:29
PROVIDERS: ADMIT Internal Medicine; ATTEND Internal Medicine
PROC: 0DB78ZX Excision of Stomach, Pylorus, Via Natural or Artificial Opening Endoscopic, Diagnostic (ICD-10-PCS; principal; 2021-07-12)
PROC: 30233N1 Transfusion of Nonautologous Red Blood Cells into Peripheral Vein, Percutaneous Approach (ICD-10-PCS; 2021-07-13)
DX: K25.4 Chronic or unspecified gastric ulcer with hemorrhage (principal); N17.9 Acute kidney failure, unspecified; I50.22 Chronic systolic (congestive) heart failure; D62 Acute posthemorrhagic anemia; I48.20 Chronic atrial fibrillation, unspecified; I13.0 Hypertensive heart and chronic kidney disease with heart failure and stage 1 through stage 4 chronic kidney disease, or unspecified chronic kidney disease; F17.210 Nicotine dependence, cigarettes, uncomplicated; I70.8 Atherosclerosis of other arteries; I25.10 Atherosclerotic heart disease of native coronary artery without angina pectoris; K44.9 Diaphragmatic hernia without obstruction or gangrene; K59.09 Other constipation; K29.80 Duodenitis without bleeding; I73.9 Peripheral vascular disease, unspecified; E87.6 Hypokalemia; E83.42 Hypomagnesemia; N18.9 Chronic kidney disease, unspecified; Z88.0 Allergy status to penicillin; I25.2 Old myocardial infarction; Z79.82 Long term (current) use of aspirin; Z79.899 Other long term (current) drug therapy; Z79.01 Long term (current) use of anticoagulants; I95.9 Hypotension, unspecified
CPT/HCPCS: 36415; 36416; 36430; 36600; 71045; 80048; 80053; 81003; 81015; 82274; 82805; 83735; 84100; 84484; 85025; 85610; 86850; 86900; 86901; 88305; 88312; 93005; C9113; J3010; J3475; J7050; P9016; U0002

== ENCOUNTER 2021-07-19 12:06 | Observation (INO) | payer MEDICARE, BC ==
[2021-07-19 13:06] LABS: Hemoglobin 8.2 g/dL (12.0-16.0); Mean Corpuscular HGB CONC 32.6 g/dL (32.0-36.0); Mean Corpuscular Hemoglobin 31.5 pg (27.0-31.0); Mean Corpuscular Volume 96.6 fL (78.0-98.0); Platelet Count 368 thou/uL (130-400); RBC Distribution Width 13.9 % (11.5-14.5)
[2021-07-19 13:16] LABS: ALT (SGPT) 47 U/L (8-55); AST (SGOT) 16 U/L (5-34); Albumin 3.4 g/dL (3.4-4.8); Alkaline Phosphatase 88 U/L (40-110); Anion Gap 14 mmol/L (10-20); BUN (Urea Nitrogen) 11 mg/dL (9.8-20.1); Bilirubin, Total 0.8 mg/dL (0.2-1.2); Calc. Creatinine Clearance 0 mL/min (70-130); Calcium 9.1 mg/dL (7.8-10.44); Carbon Dioxide 28 mmol/L (23-31); Chloride 104 mmol/L (98-107); Globulin 2.5 g/dL (2.4-3.5); Glucose 113 mg/dL (83-110); Potassium 3.6 mmol/L (3.5-5.1); Protein, Total 5.9 g/dL (5.8-8.1); Sodium 142 mmol/L (136-145)
[2021-07-19 13:29] LABS: Eosinophils 1 % (0-10); Lymphocytes 11 % (21-51); MDiff Complete? YES; Monocytes 2 % (0-10); Neutrophil 86 % (42-75); Ovalocytes SLIGHT = 2-5 cells (100X) (0-1/hpf); Platelet Morphology Comment Appears Adequate; Polychromasia MODERATE = 3-4 cells (100X) (0-2/hpf); White Blood Cell (WBC) Count 11.7 thou/uL (4.8-10.8)
[2021-07-19 13:49] LABS: Bilirubin Negative (Negative); Blood, Urine Negative (Negative); Clarity Clear (Clear); Glucose, Urine (Dipstick) Normal (Negative); Ketone, Urine Negative (Negative); Leukocyte Negative Leu/uL (Negative); Nitrite Negative (Negative); Protein, Urine (Dipstick) Negative (Neg-Trace); Specific Gravity, Urine 1.007 (1.002-1.036); Urobilinogen Normal mg/dL (Less than 2)
[2021-07-19] MEDS ORDERED: Acetaminophen 325 MG TAB PO PRN (18:47)
[2021-07-19] MEDS ORDERED: HYDROcodone/Acetaminophen 5/325 mg Tablet PO PRN (18:47)
[2021-07-19] MEDS ORDERED: Ondansetron PF 4 MG/2 ML Vial IVP PRN (18:47)
[2021-07-19] MEDS ORDERED: Senokot S 8.6-50 MG TAB PO PRN (18:47)
[2021-07-19] MEDS ORDERED: HYDROcodone/Acetaminophen 7.5/325 mg Tablet PO PRN (18:47)
[2021-07-19] MEDS ORDERED: Bisacodyl 5 MG TAB PO PRN (18:47)
[2021-07-19] MEDS ORDERED: Midodrine HCl 5 MG TAB PO SCH ×3 (18:54→22:45)
[2021-07-19] MEDS ORDERED: Sodium Chloride 0.9% 1,000 ML IV SCH ×2 (19:00→22:45)
[2021-07-19] MEDS ORDERED: Multivitamin W/ Minerals 1 TAB PO SCH (19:15)
[2021-07-19] MEDS ORDERED: Multivitamin W/ Minerals 1 TAB ONE (19:56)
[2021-07-19] MEDS ORDERED: Carvedilol 3.125 MG TAB PO SCH (20:15)
[2021-07-19] MEDS ORDERED: Digoxin 0.125 MG TAB PO SCH (20:15)
[2021-07-19] MEDS ORDERED: Famotidine/PF 20 mg/2ml Vial SLOW IVP SCH (21:00)
[2021-07-19] MEDS: Atorvastatin Calcium 40 MG TAB PO SCH ×2 (21:13→21:23)
[2021-07-19] MEDS: Pantoprazole 40 MG VIAL IVP SCH (21:42)
[2021-07-19 22:10] LABS: SARS-CoV-2 NAA Rapid Test Not Detected (NotDetected)
[2021-07-19] MEDS ORDERED: Norepinephrine 8 MG/0.9% NS 0 ML ONE (23:17)
[2021-07-19] MEDS ORDERED: Norepinephrine 8 MG/0.9% NS 250 ML IVPB SCH (23:30)
[2021-07-20 03:54] VITALS: BMI 22.1
[2021-07-20 07:12] LABS: ALT (SGPT) 35 U/L (8-55); AST (SGOT) 13 U/L (5-34); Albumin 2.9 g/dL (3.4-4.8); Alkaline Phosphatase 76 U/L (40-110); Anion Gap 13 mmol/L (10-20); BUN (Urea Nitrogen) 10 mg/dL (9.8-20.1); Bilirubin, Total 0.6 mg/dL (0.2-1.2); Calc. Creatinine Clearance 66 mL/min (70-130); Calcium 8.3 mg/dL (7.8-10.44); Carbon Dioxide 24 mmol/L (23-31); Chloride 108 mmol/L (98-107); Globulin 1.9 g/dL (2.4-3.5); Glucose 95 mg/dL (83-110); Potassium 3.7 mmol/L (3.5-5.1); Protein, Total 4.8 g/dL (5.8-8.1); Sodium 141 mmol/L (136-145)
[2021-07-20] MEDS ORDERED: Multivitamin W/ Minerals 1 TAB PO SCH (09:00)
[2021-07-20] MEDS ORDERED: Digoxin 0.125 MG TAB PO SCH (09:00)
[2021-07-20] MEDS ORDERED: Rivaroxaban 10 MG TAB PO SCH (09:00)
[2021-07-20] MEDS ORDERED: Aspirin 81 mg Enteric Coated Tablet PO SCH (09:00)
[2021-07-20] MEDS ORDERED: Iopamidol-370 76% 500 ML 1 ML ONE (09:39)
[2021-07-20] MEDS: Carvedilol 3.125 MG TAB PO SCH ×2 (10:00→16:31)
[2021-07-20] MEDS: Pantoprazole 40 MG VIAL IVP SCH ×2 (10:01→20:38)
[2021-07-20 11:57] VITALS: BP 80/46
[2021-07-20] MEDS: Atorvastatin Calcium 40 MG TAB PO SCH (20:37)
[2021-07-20 20:49] VITALS: TEMP 96.9
[2021-07-23] MEDS ORDERED: FLU VACC QS2021-22(65YR UP)/PF 240 MCG/0.7 ML SYRINGE IM ONE (09:00)
== END 2021-07-20 21:35 ==
LOC: ERS 12:06 → ERHOLD 17:41 → IMCU/EMU 07-20 02:00 → OBSVTOIN 07-20 02:37 → INTOOBSV 07-20 02:37
PROVIDERS: ADMIT Family Medicine; ATTEND Internal Medicine
DX: R53.1 Weakness (principal); E86.1 Hypovolemia; I95.89 Other hypotension; I70.203 Unspecified atherosclerosis of native arteries of extremities, bilateral legs; I08.1 Rheumatic disorders of both mitral and tricuspid valves; I25.10 Atherosclerotic heart disease of native coronary artery without angina pectoris; I65.21 Occlusion and stenosis of right carotid artery; I70.8 Atherosclerosis of other arteries; I13.0 Hypertensive heart and chronic kidney disease with heart failure and stage 1 through stage 4 chronic kidney disease, or unspecified chronic kidney disease; N18.2 Chronic kidney disease, stage 2 (mild); I50.22 Chronic systolic (congestive) heart failure; D63.1 Anemia in chronic kidney disease; I48.20 Chronic atrial fibrillation, unspecified; I42.9 Cardiomyopathy, unspecified; I48.92 Unspecified atrial flutter; Z87.891 Personal history of nicotine dependence; Z95.5 Presence of coronary angioplasty implant and graft; Z88.0 Allergy status to penicillin; Z79.01 Long term (current) use of anticoagulants; Z79.82 Long term (current) use of aspirin; Z79.899 Other long term (current) drug therapy
CPT/HCPCS: 70498; 80053 ×2; 81003; 82533; 83880; 85025; 93005; 93306; 97116; 97139 ×2; 99285; U0002; 36415; 82274; 96374; C9113; G0378; J7050; Q9967

== ENCOUNTER 2021-07-30 16:23 | Inpatient (IN) | payer MEDICARE, BC ==
[2021-07-30 17:36] LABS: #Basophils 0.1 thou/uL (0.0-0.2); #Eosinphils 0.1 thou/uL (0.0-0.7); #Lymphocytes 1.6 thou/uL (1.20-3.40); #Monocytes 0.8 thou/uL (0.11-0.59); %Basophils 0.4 % (0.0-1.0); %Eosinophils 0.4 % (0.0-10.0); %Lymphocytes 10.2 % (21.0-51.0); %Monocytes 5.1 % (0.0-10.0); %Neutrophils 83.9 % (42.0-75.0); Hemoglobin 7.9 g/dL (12.0-16.0); Mean Corpuscular HGB CONC 32.6 g/dL (32.0-36.0); Mean Corpuscular Hemoglobin 28.7 pg (27.0-31.0); Mean Platelet Volume 7.7 fL (7.4-10.4); Platelet Count 348 thou/uL (130-400); RBC Distribution Width 17.5 % (11.5-14.5); Red Blood Cell (RBC) Count 2.76 mill/uL (4.20-5.40); White Blood Cell (WBC) Count 15.5 thou/uL (4.8-10.8)
[2021-07-30 17:59] LABS: ALT (SGPT) 17 U/L (8-55); AST (SGOT) 24 U/L (5-34); Albumin 3.5 g/dL (3.4-4.8); Alkaline Phosphatase 79 U/L (40-110); Anion Gap 16 mmol/L (10-20); BUN (Urea Nitrogen) 18 mg/dL (9.8-20.1); Bilirubin, Total 0.5 mg/dL (0.2-1.2); Calc. Creatinine Clearance 0 mL/min (70-130); Carbon Dioxide 21 mmol/L (23-31); Chloride 105 mmol/L (98-107); Globulin 2.2 g/dL (2.4-3.5); Glucose 121 mg/dL (83-110); Lipase 46 U/L (8-78); Potassium 4.3 mmol/L (3.5-5.1); Protein, Total 5.7 g/dL (5.8-8.1); Sodium 138 mmol/L (136-145)
[2021-07-30] MEDS ORDERED: Ondansetron ODT 4 MG TAB ONE (18:35)
[2021-07-30] MEDS ORDERED: Pantoprazole 40 MG VIAL ONE (21:59)
[2021-07-30] MEDS ORDERED: hydrALAZINE 20 MG/ML VIAL SLOW IVP PRN (23:17)
[2021-07-30] MEDS ORDERED: Ondansetron ODT 4 MG TAB PO PRN (23:17)
[2021-07-30] MEDS ORDERED: Ondansetron PF 4 MG/2 ML Vial IVP PRN (23:17)
[2021-07-30] MEDS ORDERED: Acetaminophen 325 MG TAB PO PRN (23:17)
[2021-07-30] MEDS ORDERED: Acetaminophen 650 MG Suppository PR PRN (23:17)
[2021-07-30] MEDS ORDERED: Aspirin Chewable 81 MG TAB PO SCH (23:45)
[2021-07-31 01:23] LABS: Hemoglobin 7.6 g/dL (12.0-16.0)
[2021-07-31 02:56] VITALS: BMI 22.3
[2021-07-31 05:57] LABS: #Basophils 0.1 thou/uL (0.0-0.2); #Eosinphils 0.1 thou/uL (0.0-0.7); #Lymphocytes 1.9 thou/uL (1.20-3.40); #Monocytes 1.2 thou/uL (0.11-0.59); #Neutrophils 11.2 thou/uL (1.40-6.50); %Basophils 0.5 % (0.0-1.0); %Eosinophils 0.6 % (0.0-10.0); %Lymphocytes 13.2 % (21.0-51.0); %Monocytes 8.1 % (0.0-10.0); %Neutrophils 77.6 % (42.0-75.0); Hemoglobin 6.8 g/dL (12.0-16.0); Mean Corpuscular HGB CONC 32.7 g/dL (32.0-36.0); Mean Corpuscular Hemoglobin 28.8 pg (27.0-31.0); Mean Corpuscular Volume 88.2 fL (78.0-98.0); Mean Platelet Volume 7.5 fL (7.4-10.4); Platelet Count 311 thou/uL (130-400); RBC Distribution Width 17.4 % (11.5-14.5); Red Blood Cell (RBC) Count 2.37 mill/uL (4.20-5.40); White Blood Cell (WBC) Count 14.4 thou/uL (4.8-10.8)
[2021-07-31 06:12] LABS: Lactic Acid 0.9 mmol/L (0.5-2.2)
[2021-07-31 06:16] LABS: Iron 16 ug/dL (50-170); Iron Binding Capacity, Total 324 mcg/dL (265-497)
[2021-07-31 06:17] LABS: Anion Gap 12 mmol/L (10-20); BUN (Urea Nitrogen) 18 mg/dL (9.8-20.1); Calc. Creatinine Clearance 68 mL/min (70-130); Calcium 8.9 mg/dL (7.8-10.44); Carbon Dioxide 24 mmol/L (23-31); Cardiac Risk 2.7 (Less than 4.5); Chloride 107 mmol/L (98-107); Cholesterol 74 mg/dl (< 200 Desired); Glucose 122 mg/dL (83-110); HDL Cholesterol 27 mg/dL (>60 Neg Risk); Iron 17 ug/dL (50-170); Iron Binding Capacity, Total 328 mcg/dL (265-497); LDL Cholesterol, Calculated 27 mg/dL; Sodium 139 mmol/L (136-145); Triglycerides 100 mg/dL (Less than 150)
[2021-07-31] MEDS: Aspirin 81 mg Enteric Coated Tablet PO SCH (07:45)
[2021-07-31] MEDS: Pantoprazole 40 MG VIAL IVP SCH ×2 (07:45→21:26)
[2021-07-31 11:53] LABS: SARS-CoV-2 PCR by NAA Not Detected (NotDetected)
[2021-07-31 13:00] LABS: Hemoglobin 6.7 g/dL (12.0-16.0); Platelet Count 339 thou/uL (130-400)
[2021-07-31 16:21] LABS: Bilirubin Negative (Negative); Blood, Urine Negative (Negative); Clarity Clear (Clear); Glucose, Urine (Dipstick) Normal (Negative); Ketone, Urine Negative (Negative); Leukocyte 500 Leu/uL (Negative); Nitrite Negative (Negative); Protein, Urine (Dipstick) Negative (Neg-Trace); RBC/HPF 0-3 HPF (0-3); Specific Gravity, Urine 1.014 (1.002-1.036); Squamous Epithelial 0-3 HPF (0-3); Urobilinogen Normal mg/dL (Less than 2); WBC/HPF Greater than 50 HPF (0-3)
[2021-07-31 16:26] LABS: Bacteria/HPF 1+ HPF (None Seen); Urine Culture Reflex Yes Yes
[2021-07-31] MEDS: Carvedilol 3.125 MG TAB PO SCH (17:17)
[2021-07-31 18:24] LABS: Hemoglobin 7.6 g/dL (12.0-16.0); Platelet Count 286 thou/uL (130-400)
[2021-07-31] MEDS: Atorvastatin Calcium 40 MG TAB PO SCH (21:26)
[2021-08-01 00:28] LABS: Hemoglobin 7.2 g/dL (12.0-16.0); Platelet Count 291 thou/uL (130-400)
[2021-08-01 07:10] LABS: #Basophils 0.1 thou/uL (0.0-0.2); #Eosinphils 0.2 thou/uL (0.0-0.7); #Monocytes 1.3 thou/uL (0.11-0.59); #Neutrophils 11.2 thou/uL (1.40-6.50); %Basophils 0.7 % (0.0-1.0); %Eosinophils 1.5 % (0.0-10.0); %Lymphocytes 18.8 % (21.0-51.0); %Monocytes 8.3 % (0.0-10.0); %Neutrophils 70.7 % (42.0-75.0); Hemoglobin 7.4 g/dL (12.0-16.0); Mean Corpuscular HGB CONC 32.3 g/dL (32.0-36.0); Mean Corpuscular Hemoglobin 27.5 pg (27.0-31.0); Mean Platelet Volume 7.7 fL (7.4-10.4); Platelet Count 280 thou/uL (130-400); RBC Distribution Width 17.7 % (11.5-14.5); Red Blood Cell (RBC) Count 2.69 mill/uL (4.20-5.40); White Blood Cell (WBC) Count 15.8 thou/uL (4.8-10.8)
[2021-08-01 07:27] LABS: Anion Gap 12 mmol/L (10-20); BUN (Urea Nitrogen) 18 mg/dL (9.8-20.1); Calc. Creatinine Clearance 69 mL/min (70-130); Calcium 8.6 mg/dL (7.8-10.44); Carbon Dioxide 25 mmol/L (23-31); Chloride 107 mmol/L (98-107); Glucose 93 mg/dL (83-110); Potassium 4.2 mmol/L (3.5-5.1); Sodium 140 mmol/L (136-145)
[2021-08-01] MEDS: Carvedilol 3.125 MG TAB PO SCH ×2 (08:20→17:35)
[2021-08-01] MEDS: Digoxin 0.125 MG TAB PO SCH (08:20)
[2021-08-01] MEDS: Pantoprazole 40 MG VIAL IVP SCH ×2 (08:21→22:37)
[2021-08-01] MEDS: Aspirin 81 mg Enteric Coated Tablet PO SCH (08:35)
[2021-08-01] MEDS ORDERED: PROPOFOL 200 MG/20 ML VIAL ONE (11:07)
[2021-08-01] MEDS ORDERED: Lidocaine 1% PF 5 ML VIAL ONE (11:07)
[2021-08-01] MEDS ORDERED: Ondansetron HCl/PF 4 MG/2 ML Vial IVP PRN (11:25)
[2021-08-01] MEDS ORDERED: GoLYTELY 4,000 ml Bottle PO SCH (15:00)
[2021-08-01] MEDS: Atorvastatin Calcium 40 MG TAB PO SCH (22:37)
[2021-08-02 05:41] LABS: Hemoglobin 7.8 g/dL (12.0-16.0); Platelet Count 277 thou/uL (130-400)
[2021-08-02] MEDS: Pantoprazole 40 MG VIAL IVP SCH ×2 (09:29→20:22)
[2021-08-02] MEDS: Carvedilol 3.125 MG TAB PO SCH ×2 (09:29→17:14)
[2021-08-02] MEDS: Digoxin 0.125 MG TAB PO SCH (09:29)
[2021-08-02] MEDS: Aspirin 81 mg Enteric Coated Tablet PO SCH (09:29)
[2021-08-02] MEDS ORDERED: PROPOFOL 200 MG/20 ML VIAL ONE (11:02)
[2021-08-02] MEDS ORDERED: PHENYLEPHRINE-NS 100 MCG/ML 10 ML SYRINGE ONE (11:02)
[2021-08-02] MEDS ORDERED: Iron, Sodium Ferric Gluconate 250 MG in Sodium Chloride 0.9% 250 ML 250 ML IVPB SCH ×3 (14:30→23:59)
[2021-08-02] MEDS: Atorvastatin Calcium 40 MG TAB PO SCH (20:20)
[2021-08-03 03:32] LABS: Hemoglobin 9.4 g/dL (12.0-16.0); Platelet Count 345 thou/uL (130-400)
[2021-08-03 03:55] LABS: #Basophils 0.1 thou/uL (0.0-0.2); #Eosinphils 0.2 thou/uL (0.0-0.7); #Lymphocytes 2.3 thou/uL (1.20-3.40); #Monocytes 0.6 thou/uL (0.11-0.59); #Neutrophils 7.6 thou/uL (1.40-6.50); %Basophils 1.1 % (0.0-1.0); %Eosinophils 2.3 % (0.0-10.0); %Lymphocytes 21.1 % (21.0-51.0); %Monocytes 5.2 % (0.0-10.0); %Neutrophils 70.3 % (42.0-75.0); Hemoglobin 9.4 g/dL (12.0-16.0); Mean Corpuscular HGB CONC 31.3 g/dL (32.0-36.0); Mean Corpuscular Hemoglobin 27.3 pg (27.0-31.0); Platelet Count 347 thou/uL (130-400); RBC Distribution Width 17.2 % (11.5-14.5); Red Blood Cell (RBC) Count 3.45 mill/uL (4.20-5.40); White Blood Cell (WBC) Count 10.8 thou/uL (4.8-10.8)
[2021-08-03 03:55] LABS: ALT (SGPT) 15 U/L (8-55); AST (SGOT) 14 U/L (5-34); Alkaline Phosphatase 81 U/L (40-110); Anion Gap 13 mmol/L (10-20); BUN (Urea Nitrogen) 12 mg/dL (9.8-20.1); Bilirubin, Total 0.7 mg/dL (0.2-1.2); Calc. Creatinine Clearance 60 mL/min (70-130); Calcium 8.7 mg/dL (7.8-10.44); Carbon Dioxide 23 mmol/L (23-31); Chloride 105 mmol/L (98-107); Globulin 2.1 g/dL (2.4-3.5); Glucose 183 mg/dL (83-110); Magnesium 1.7 mg/dL (1.6-2.6); Protein, Total 5.1 g/dL (5.8-8.1); Sodium 137 mmol/L (136-145)
[2021-08-03] MEDS: Carvedilol 3.125 MG TAB PO SCH ×2 (08:43→17:25)
[2021-08-03] MEDS: Digoxin 0.125 MG TAB PO SCH (08:43)
[2021-08-03] MEDS: Pantoprazole 40 MG VIAL IVP SCH ×2 (08:45→22:49)
[2021-08-03 11:23] LABS: Digoxin 0.47 ng/mL (0.8-2.0)
[2021-08-03] MEDS: Atorvastatin Calcium 40 MG TAB PO SCH (22:48)
[2021-08-04] MEDS: Carvedilol 3.125 MG TAB PO SCH ×2 (10:01→16:34)
[2021-08-04] MEDS: Digoxin 0.125 MG TAB PO SCH (10:02)
[2021-08-04] MEDS: Pantoprazole 40 MG VIAL IVP SCH ×2 (10:02→19:53)
[2021-08-04] MEDS: Atorvastatin Calcium 40 MG TAB PO SCH (19:53)
[2021-08-04] MEDS: Pantoprazole 40 MG GRANULES PACKET PO SCH ×2 (20:33→21:18)
[2021-08-05 05:57] LABS: Hemoglobin 7.5 g/dL (12.0-16.0); Platelet Count 257 thou/uL (130-400)
[2021-08-05] MEDS: Ferrous Sulfate 325 MG TAB PO SCH ×2 (08:58→16:49)
[2021-08-05] MEDS: Carvedilol 3.125 MG TAB PO SCH ×2 (08:58→16:49)
[2021-08-05] MEDS: Pantoprazole 40 MG GRANULES PACKET PO SCH ×2 (08:59→20:58)
[2021-08-05] MEDS: Digoxin 0.125 MG TAB PO SCH (08:59)
[2021-08-05] MEDS: Atorvastatin Calcium 40 MG TAB PO SCH (20:58)
[2021-08-06 05:25] LABS: Hemoglobin 7.4 g/dL (12.0-16.0); Platelet Count 272 thou/uL (130-400)
[2021-08-06] MEDS: Pantoprazole 40 MG GRANULES PACKET PO SCH ×2 (08:58→21:35)
[2021-08-06] MEDS: Carvedilol 3.125 MG TAB PO SCH ×2 (08:58→17:20)
[2021-08-06] MEDS: Digoxin 0.125 MG TAB PO SCH (08:59)
[2021-08-06] MEDS: Ferrous Sulfate 325 MG TAB PO SCH ×2 (08:59→17:20)
[2021-08-06] MEDS ORDERED: Iopamidol 370 76% 50 ML VIAL FS ONE (09:18)
[2021-08-06] MEDS ORDERED: Vancomycin HCl 500 MG VIAL ONE (11:08)
[2021-08-06] MEDS ORDERED: Clindamycin/D5W 900 mg/50 ml Premix Bag ONE (11:08)
[2021-08-06] MEDS ORDERED: Levofloxacin 500 mg/D5W 100 ml Premix Bag ONE (11:10)
[2021-08-06] MEDS ORDERED: Lidocaine 1% (PF) 30 ML VIAL ONE (11:33)
[2021-08-06] MEDS ORDERED: Midazolam HCl 2 mg/2 ml Vial ONE (11:47)
[2021-08-06] MEDS ORDERED: DOPamine 400 MG/D5W 250 ML 250 ML ONE (12:28)
[2021-08-06] MEDS ORDERED: Ondansetron PF 4 MG/2 ML Vial ONE (13:15)
[2021-08-06] MEDS ORDERED: DOPamine 400 MG/D5W 250 ML 250 ML IVPB SCH ×3 (14:15→17:00)
[2021-08-06] MEDS ORDERED: Polyethylene Glycol 3350 17 GM Packet PO SCH (21:00)
[2021-08-06] MEDS ORDERED: Polyethylene Glycol 3350 17 GM Packet ONE (21:23)
[2021-08-06] MEDS: Atorvastatin Calcium 40 MG TAB PO SCH (21:34)
[2021-08-07 06:17] LABS: Hemoglobin 8.7 g/dL (12.0-16.0); Platelet Count 261 thou/uL (130-400)
[2021-08-07] MEDS: Ferrous Sulfate 325 MG TAB PO SCH ×2 (08:36→18:45)
[2021-08-07] MEDS: Digoxin 0.125 MG TAB PO SCH (08:36)
[2021-08-07] MEDS: Carvedilol 3.125 MG TAB PO SCH ×2 (08:36→18:45)
[2021-08-07] MEDS: Pantoprazole 40 MG GRANULES PACKET PO SCH ×2 (08:37→21:15)
[2021-08-07] MEDS ORDERED: Polyethylene Glycol 3350 17 GM Packet PO SCH (09:00)
[2021-08-07] MEDS: Atorvastatin Calcium 40 MG TAB PO SCH (21:15)
[2021-08-08 06:00] LABS: Hemoglobin 8.6 g/dL (12.0-16.0)
[2021-08-08] MEDS: Ferrous Sulfate 325 MG TAB PO SCH ×2 (09:04→17:06)
[2021-08-08] MEDS: Digoxin 0.125 MG TAB PO SCH (09:04)
[2021-08-08] MEDS: Pantoprazole 40 MG GRANULES PACKET PO SCH ×2 (09:04→20:18)
[2021-08-08] MEDS: Carvedilol 3.125 MG TAB PO SCH ×2 (09:04→17:06)
[2021-08-08] MEDS ORDERED: Heparin 1,000 UNITS/ML VIAL ONE (10:07)
[2021-08-08] MEDS: Atorvastatin Calcium 40 MG TAB PO SCH (20:18)
[2021-08-09 06:11] LABS: Hemoglobin 8.5 g/dL (12.0-16.0)
[2021-08-09] MEDS: Carvedilol 3.125 MG TAB PO SCH ×2 (08:57→17:50)
[2021-08-09] MEDS: Ferrous Sulfate 325 MG TAB PO SCH ×2 (08:57→18:43)
[2021-08-09] MEDS: Digoxin 0.125 MG TAB PO SCH (08:58)
[2021-08-09] MEDS ORDERED: Polyethylene Glycol 3350 17 GM Packet PO PRN (09:00)
[2021-08-09] MEDS: Pantoprazole 40 MG GRANULES PACKET PO SCH ×2 (09:00→21:16)
[2021-08-09] MEDS: Atorvastatin Calcium 40 MG TAB PO SCH (21:16)
[2021-08-09 23:51] LABS: SARS-CoV-2 PCR NAA for Saliva Not Detected (NotDetected)
[2021-08-10] MEDS: Carvedilol 3.125 MG TAB PO SCH ×2 (09:38→16:42)
[2021-08-10] MEDS: Ferrous Sulfate 325 MG TAB PO SCH ×2 (09:38→16:42)
[2021-08-10] MEDS: Pantoprazole 40 MG GRANULES PACKET PO SCH (09:39)
[2021-08-10] MEDS: Digoxin 0.125 MG TAB PO SCH (09:39)
[2021-08-10 15:50] VITALS: BP 151/74; TEMP 97.8
== END 2021-08-10 19:00 | DRG 393 ==
LOC: ERS 16:23 → 3SE 21:49 → NEURO 08-07 16:43
PROVIDERS: ADMIT Student in an Organized Health Care Education/Training Program; ATTEND Family Medicine
PROC: 30233N1 Transfusion of Nonautologous Red Blood Cells into Peripheral Vein, Percutaneous Approach (ICD-10-PCS; 2021-07-31)
PROC: 0DJ08ZZ Inspection of Upper Intestinal Tract, Via Natural or Artificial Opening Endoscopic (ICD-10-PCS; principal; 2021-08-01)
PROC: 0DBN8ZZ Excision of Sigmoid Colon, Via Natural or Artificial Opening Endoscopic (ICD-10-PCS; 2021-08-02)
PROC: 0DBF8ZX Excision of Right Large Intestine, Via Natural or Artificial Opening Endoscopic, Diagnostic (ICD-10-PCS; 2021-08-02)
PROC: 02H633Z Insertion of Infusion Device into Right Atrium, Percutaneous Approach (ICD-10-PCS; 2021-08-06)
PROC: 3E033XZ Introduction of Vasopressor into Peripheral Vein, Percutaneous Approach (ICD-10-PCS; 2021-08-06)
DX: K55.9 Vascular disorder of intestine, unspecified (principal); I63.9 Cerebral infarction, unspecified; I50.22 Chronic systolic (congestive) heart failure; K63.3 Ulcer of intestine; I48.20 Chronic atrial fibrillation, unspecified; I42.9 Cardiomyopathy, unspecified; D62 Acute posthemorrhagic anemia; Z20.822 Contact with and (suspected) exposure to COVID-19; I11.0 Hypertensive heart disease with heart failure; K64.8 Other hemorrhoids; D72.829 Elevated white blood cell count, unspecified; I73.9 Peripheral vascular disease, unspecified; I49.5 Sick sinus syndrome; I25.10 Atherosclerotic heart disease of native coronary artery without angina pectoris; I08.1 Rheumatic disorders of both mitral and tricuspid valves; E78.00 Pure hypercholesterolemia, unspecified; D12.2 Benign neoplasm of ascending colon; Z88.0 Allergy status to penicillin; Z91.81 History of falling; Z90.710 Acquired absence of both cervix and uterus; Z87.891 Personal history of nicotine dependence; Z79.01 Long term (current) use of anticoagulants; Z79.82 Long term (current) use of aspirin; Z79.899 Other long term (current) drug therapy; K27.9 Peptic ulcer, site unspecified, unspecified as acute or chronic, without hemorrhage or perforation
CPT/HCPCS: 36415; 36416; 36430; 36556; 70450; 70551; 71045; 74174; 75820; 78278; 80048; 80053; 80061; 80162; 81001; 82274; 82728; 83540; 83550; 83605; 83690; 83735; 84484; 85014; 85018; 85025; 85049; 86850; 86900; 86901; 87086; 88305; 93005; 93010; 93306; 96374; 99152; 99153; A9604; C1751; C9113; J1265; J1644; J1956; J2001; J2250; J2405; J2704; J2916; J3370; J3490; J7050; P9016; Q0162; Q9967; U0003; U0005

== ENCOUNTER 2021-09-03 10:28 | Outpatient (CLI) | payer MEDICARE, BC | END 2021-09-03 10:29 | disposition home or self-care (01) | LOC: BICRAD 10:28 | PROVIDERS: ATTEND Internal Medicine Cardiovascular Disease | DX: R06.02 Shortness of breath (principal) | CPT/HCPCS: 71046 ==

== ENCOUNTER 2022-12-30 10:30 | Observation (INO) | payer MEDICARE, BC ==
[2022-12-30 11:23] LABS: #Basophils 0.1 thou/uL (0.0-0.2); #Eosinphils 0.1 thou/uL (0.0-0.7); #Monocytes 0.8 thou/uL (0.11-0.59); #Neutrophils 15.7 thou/uL (1.40-6.50); %Basophils 0.4 % (0.0-1.0); %Eosinophils 0.8 % (0.0-10.0); %Lymphocytes 5.5 % (21.0-51.0); %Monocytes 4.4 % (0.0-10.0); %Neutrophils 88.9 % (42.0-75.0); Mean Corpuscular HGB CONC 32.6 g/dL (32.0-36.0); Mean Corpuscular Hemoglobin 32.5 pg (27.0-31.0); Mean Corpuscular Volume 99.8 fl (78.0-98.0); Mean Platelet Volume 8.1 fL (7.4-10.4); Platelet Count 201 10x3/uL (130-400); Red Blood Cell (RBC) Count 4.62 mill/uL (4.20-5.40); White Blood Cell (WBC) Count 17.7 10x3/uL (4.8-10.8)
[2022-12-30 11:36] LABS: ALT (SGPT) 21 U/L (8-55); AST (SGOT) 21 U/L (5-34); Albumin 4.1 g/dL (3.4-4.8); Alkaline Phosphatase 86 U/L (40-110); Anion Gap 13 mmol/L (10-20); BUN (Urea Nitrogen) 13 mg/dL (9.8-20.1); Bilirubin, Total 0.5 mg/dL (0.2-1.2); CK (CPK) 57 U/L (29-168); Calc. Creatinine Clearance 0 mL/min (70-130); Calcium 9.5 mg/dL (7.8-10.44); Carbon Dioxide 24 mmol/L (23-31); Chloride 104 mmol/L (98-107); Estimated GFR 75; Globulin 2.7 g/dL (2.4-3.5); Glucose 123 mg/dL (83-110); Lipase 51 U/L (8-78); Potassium 4.3 mmol/L (3.5-5.1); Protein, Total 6.8 g/dL (5.8-8.1); Sodium 137 mmol/L (136-145)
[2022-12-30 12:22] LABS: SARS-CoV-2 NAA Rapid Test Not Detected (NotDetected)
[2022-12-30] MEDS ORDERED: Vancomycin 1 GM/200 ML (FROZEN) BAG ONE (12:23)
[2022-12-30 12:59] LABS: Bilirubin Negative (Negative); Blood, Urine Negative (Negative); Clarity Clear (Clear); Glucose, Urine (Dipstick) Normal (Negative); Ketone, Urine Negative (Negative); Leukocyte Negative Leu/uL (Negative); Nitrite Negative (Negative); Protein, Urine (Dipstick) Negative (Neg-Trace); Specific Gravity, Urine 1.011 (1.002-1.036); Urobilinogen Normal mg/dL (Less than 2)
[2022-12-30] MEDS ORDERED: Metoprolol Tartrate 5 MG/5 ML VIAL ONE (14:39)
[2022-12-30] MEDS ORDERED: Ondansetron PF 4 MG/2 ML Vial IVP PRN (14:41)
[2022-12-30] MEDS ORDERED: HYDROcodone/Acetaminophen 5/325 mg Tablet PO PRN (14:41)
[2022-12-30] MEDS ORDERED: Acetaminophen 325 MG TAB PO PRN (14:41)
[2022-12-30] MEDS ORDERED: Ondansetron ODT 4 MG TAB PO PRN (14:41)
[2022-12-30] MEDS ORDERED: Sodium Chloride 0.9% 1,000 ML IV SCH (14:45)
[2022-12-30] MEDS ORDERED: Electrolyte Replacement Protocol FS SCH (14:45)
[2022-12-30 16:45] VITALS: BMI 22.2
[2022-12-30] MEDS ORDERED: Carvedilol 3.125 MG TAB PO SCH (17:00)
[2022-12-30] MEDS ORDERED: Nitroglycerin 0.4 MG TAB (25 Tab Bottle) SL PRN (17:21)
[2022-12-30 17:22] LABS: Lactic Acid 1.6 mmol/L (0.5-2.2)
[2022-12-30] MEDS: Ferrous Sulfate 325 MG TAB PO SCH (18:13)
[2022-12-30] MEDS ORDERED: Atorvastatin Calcium 40 MG TAB PO SCH (21:00)
[2022-12-30] MEDS ORDERED: Magnesium 2 GM/50 ML(in water) 2 GM in Premix Bag 1 BAG IVPB SCH (21:00)
[2022-12-31 04:41] LABS: #Basophils 0.1 thou/uL (0.0-0.2); #Eosinphils 0.3 thou/uL (0.0-0.7); #Lymphocytes 1.7 thou/uL (1.20-3.40); #Monocytes 0.9 thou/uL (0.11-0.59); #Neutrophils 7.5 thou/uL (1.40-6.50); %Basophils 0.7 % (0.0-1.0); %Eosinophils 2.7 % (0.0-10.0); %Lymphocytes 16.6 % (21.0-51.0); %Monocytes 8.6 % (0.0-10.0); %Neutrophils 71.5 % (42.0-75.0); Hemoglobin 14.2 g/dL (12.0-16.0); Mean Corpuscular HGB CONC 33.2 g/dL (32.0-36.0); Mean Corpuscular Hemoglobin 33.3 pg (27.0-31.0); Platelet Count 188 10x3/uL (130-400); RBC Distribution Width 12.1 % (11.5-14.5); Red Blood Cell (RBC) Count 4.26 mill/uL (4.20-5.40); White Blood Cell (WBC) Count 10.5 10x3/uL (4.8-10.8)
[2022-12-31 05:07] LABS: Anion Gap 12 mmol/L (10-20); BUN (Urea Nitrogen) 9 mg/dL (9.8-20.1); Calc. Creatinine Clearance 57 mL/min (70-130); Calcium 9.1 mg/dL (7.8-10.44); Carbon Dioxide 22 mmol/L (23-31); Chloride 107 mmol/L (98-107); Estimated GFR 82; Glucose 90 mg/dL (83-110); Sodium 137 mmol/L (136-145)
[2022-12-31] MEDS ORDERED: Digoxin 0.125 MG TAB PO SCH (09:00)
[2022-12-31] MEDS ORDERED: Aspirin 81 mg Enteric Coated Tablet PO SCH (09:00)
[2022-12-31] MEDS ORDERED: Multivitamin W/ Minerals 1 TAB PO SCH (09:00)
[2022-12-31] MEDS: Ferrous Sulfate 325 MG TAB PO SCH (09:42)
[2022-12-31 12:34] VITALS: BP 98/56; TEMP 98.6
[2022-12-31] MEDS ORDERED: Vancomycin HCl 750 MG in Sodium Chloride 0.9% 250 ML 250 ML IVPB SCH (14:00)
== END 2022-12-31 14:02 | disposition home or self-care (01) ==
LOC: ERS 10:30 → 2SW 14:18
PROVIDERS: ADMIT Internal Medicine; ATTEND Internal Medicine
DX: R55 Syncope and collapse (principal); R42 Dizziness and giddiness; I95.9 Hypotension, unspecified; I11.0 Hypertensive heart disease with heart failure; I50.32 Chronic diastolic (congestive) heart failure; I48.0 Paroxysmal atrial fibrillation; I25.2 Old myocardial infarction; I08.1 Rheumatic disorders of both mitral and tricuspid valves; Z86.73 Personal history of transient ischemic attack (TIA), and cerebral infarction without residual deficits; Z87.891 Personal history of nicotine dependence; Z79.82 Long term (current) use of aspirin; Z79.899 Other long term (current) drug therapy; Z88.0 Allergy status to penicillin; Z20.822 Contact with and (suspected) exposure to COVID-19; W19.XXXA Unspecified fall, initial encounter
CPT/HCPCS: 0240U; 71045; 80048; 80053; 81003; 82550; 83605; 83690; 83735; 83880; 84145; 84484; 85025 ×2; 87040; 87149 ×2; 93005; 93306; 93880; 96372; 96375; G0378 ×3; J3370; 36415; J1650; J1956; J3475; J7050

== ENCOUNTER 2023-04-15 10:32 | Outpatient (CLI) | payer MEDICARE, BC ==
[~2023-04-15 10:32] MED LIST: Iopamidol-370 76% 500 ML MDV (1 ML CHARGE) ONE
== END 2023-04-15 10:33 | disposition home or self-care (01) ==
LOC: BICCT 10:32
PROVIDERS: ATTEND Internal Medicine Cardiovascular Disease
DX: I65.23 Occlusion and stenosis of bilateral carotid arteries (principal); I70.8 Atherosclerosis of other arteries
CPT/HCPCS: 70498; 82565; Q9967

== ENCOUNTER 2023-10-22 11:33 | Inpatient (IN) | payer MEDICARE, BC ==
[2023-10-22 12:11] LABS: #Basophils 0.1 thou/uL (0.0-0.2); #Eosinphils 0.1 thou/uL (0.0-0.7); #Monocytes 0.7 thou/uL (0.11-0.59); #Neutrophils 7.8 thou/uL (1.40-6.50); %Basophils 0.5 % (0.0-1.0); %Eosinophils 0.5 % (0.0-10.0); %Lymphocytes 9.8 % (21.0-51.0); %Monocytes 7.3 % (0.0-10.0); %Neutrophils 81.7 % (42.0-75.0); Hematocrit 43.2 % (36.0-47.0); Hemoglobin 14.3 g/dL (12.0-16.0); Mean Corpuscular HGB CONC 33.1 g/dL (32.0-36.0); Mean Corpuscular Hemoglobin 31.2 pg (27.0-31.0); Mean Corpuscular Volume 94.3 fl (78.0-98.0); Mean Platelet Volume 9.4 fL (7.4-10.4); Platelet Count 262 10x3/uL (130-400); RBC Distribution Width 15.3 % (11.5-14.5); Red Blood Cell (RBC) Count 4.58 mill/uL (4.20-5.40); White Blood Cell (WBC) Count 9.6 10x3/uL (4.8-10.8)
[2023-10-22 12:42] LABS: ALT (SGPT) 28 U/L (8-55); AST (SGOT) 32 U/L (5-34); Albumin 4.1 g/dL (3.4-4.8); Alkaline Phosphatase 76 U/L (40-110); Anion Gap 15 mmol/L (10-20); BUN (Urea Nitrogen) 14 mg/dL (9.8-20.1); Bilirubin, Total 1.7 mg/dL (0.2-1.2); Calc. Creatinine Clearance 0 mL/min (70-130); Calcium 9.6 mg/dL (7.8-10.44); Carbon Dioxide 24 mmol/L (23-31); Chloride 97 mmol/L (98-107); Estimated GFR 65; Globulin 2.7 g/dL (2.4-3.5); Glucose 111 mg/dL (83-110); Lipase 53 U/L (8-78); Potassium 4.6 mmol/L (3.5-5.1); Protein, Total 6.8 g/dL (5.8-8.1); Sodium 131 mmol/L (136-145)
[2023-10-22 12:48] LABS: Critical Call Chem Troponin I NUR.LB16 @1247; Troponin I 0.803 ng/mL (< 0.028)
[2023-10-22] MEDS ORDERED: Iopamidol-370 76% 500 ML MDV (1 ML CHARGE) ONE (13:35)
[2023-10-22 13:39] LABS: Magnesium 1.8 mg/dL (1.6-2.6)
[2023-10-22] MEDS ORDERED: Aspirin Chewable 81 MG TAB ONE (13:39)
[2023-10-22] MEDS ORDERED: Enoxaparin 60 MG (0.6 mL) SYRINGE ONE (13:40)
[2023-10-22] MEDS ORDERED: Furosemide 40 MG (4 mL) VIAL ONE (14:44)
[2023-10-22 15:59] LABS: Clarity Turbid (Clear); Leukocyte 500 Leu/uL (Negative); Specific Gravity, Urine 1.022 (1.002-1.036); pH, Urine 5.5 (5.0-9.0)
[2023-10-22 16:00] LABS: Bacteria/HPF None Seen HPF (None Seen); Bilirubin Negative (Negative); Blood, Urine Negative (Negative); CAUTI Indications for Culture Pelvic or flank pain; Glucose, Urine (Dipstick) Normal (Negative); Ketone, Urine Negative (Negative); Nitrite Negative (Negative); Protein, Urine (Dipstick) Negative (Neg-Trace); RBC/HPF 0-3 HPF (0-3); Urobilinogen Normal mg/dL (Less than 2)
[2023-10-22 16:04] LABS: Urine Culture Reflex Yes Yes
[2023-10-22] MEDS ORDERED: Ondansetron ODT 4 MG TAB PO PRN (16:10)
[2023-10-22] MEDS ORDERED: Acetaminophen 325 MG TAB PO PRN (16:10)
[2023-10-22] MEDS ORDERED: Communication Order-Pharmacy FS ONE (16:11)
[2023-10-22 16:54] LABS: Hematocrit 42.8 % (36.0-47.0); Hemoglobin 14.2 g/dL (12.0-16.0); Platelet Count 252 10x3/uL (130-400)
[2023-10-22 17:16] LABS: Critical Call Chem Troponin I NUR.LB16 @1716; Troponin I 0.741 ng/mL (< 0.028)
[2023-10-22 19:43] LABS: Critical Call Chem Troponin I NUR.LC9 @1942; Troponin I 0.679 ng/mL (< 0.028)
[2023-10-22] MEDS: Famotidine 20 MG TAB PO SCH (21:24)
[2023-10-22] MEDS ORDERED: Enoxaparin 60 MG (0.6 mL) SYRINGE SC SCH (23:00)
[2023-10-23] MEDS: Furosemide 40 MG (4 mL) VIAL SLOW IVP SCH ×2 (06:22→17:47)
[2023-10-23 06:34] LABS: Anion Gap 16 mmol/L (10-20); BUN (Urea Nitrogen) 12 mg/dL (9.8-20.1); Calc. Creatinine Clearance 55 mL/min (70-130); Calcium 9.2 mg/dL (7.8-10.44); Carbon Dioxide 23 mmol/L (23-31); Chloride 99 mmol/L (98-107); Estimated GFR 74; Glucose 69 mg/dL (83-110); Potassium 4.1 mmol/L (3.5-5.1); Sodium 134 mmol/L (136-145)
[2023-10-23 07:51] LABS: #Basophils 0.1 thou/uL (0.0-0.2); #Eosinphils 0.2 thou/uL (0.0-0.7); #Monocytes 0.7 thou/uL (0.11-0.59); #Neutrophils 6.2 thou/uL (1.40-6.50); %Basophils 1.2 % (0.0-1.0); %Lymphocytes 15.7 % (21.0-51.0); %Monocytes 8.2 % (0.0-10.0); %Neutrophils 72.7 % (42.0-75.0); Hematocrit 47.4 % (36.0-47.0); Hemoglobin 15.3 g/dL (12.0-16.0); Mean Corpuscular HGB CONC 32.3 g/dL (32.0-36.0); Mean Corpuscular Hemoglobin 31.2 pg (27.0-31.0); Mean Corpuscular Volume 96.7 fl (78.0-98.0); Mean Platelet Volume 9.9 fL (7.4-10.4); Platelet Count 243 10x3/uL (130-400); RBC Distribution Width 15.4 % (11.5-14.5); White Blood Cell (WBC) Count 8.5 10x3/uL (4.8-10.8)
[2023-10-23] MEDS: Enoxaparin 60 MG (0.6 mL) SYRINGE SC SCH ×2 (08:44→21:13)
[2023-10-23] MEDS: Famotidine 20 MG TAB PO SCH ×2 (08:45→21:13)
[2023-10-23] MEDS ORDERED: Enoxaparin 40 MG (0.4 mL) SYRINGE SC SCH (09:00)
[2023-10-23] MEDS ORDERED: Nitroglycerin 0.4 MG TAB (25 Tab Bottle) SL PRN (13:18)
[2023-10-23] MEDS: Atorvastatin Calcium 40 MG TAB PO SCH (21:13)
[2023-10-24 03:57] LABS: #Basophils 0.1 thou/uL (0.0-0.2); #Eosinphils 0.2 thou/uL (0.0-0.7); #Monocytes 0.6 thou/uL (0.11-0.59); %Basophils 0.9 % (0.0-1.0); %Eosinophils 2.1 % (0.0-10.0); %Lymphocytes 23.4 % (21.0-51.0); %Monocytes 8.3 % (0.0-10.0); %Neutrophils 65.2 % (42.0-75.0); Hematocrit 39.5 % (36.0-47.0); Hemoglobin 13.2 g/dL (12.0-16.0); Mean Corpuscular HGB CONC 33.4 g/dL (32.0-36.0); Mean Corpuscular Hemoglobin 31.4 pg (27.0-31.0); Mean Corpuscular Volume 93.8 fl (78.0-98.0); Mean Platelet Volume 9.9 fL (7.4-10.4); Platelet Count 249 10x3/uL (130-400); Red Blood Cell (RBC) Count 4.21 mill/uL (4.20-5.40); White Blood Cell (WBC) Count 7.7 10x3/uL (4.8-10.8)
[2023-10-24 04:55] LABS: ALT (SGPT) 23 U/L (8-55); AST (SGOT) 28 U/L (5-34); Albumin 3.6 g/dL (3.4-4.8); Alkaline Phosphatase 73 U/L (40-110); Anion Gap 12 mmol/L (10-20); BUN (Urea Nitrogen) 14 mg/dL (9.8-20.1); Calc. Creatinine Clearance 49 mL/min (70-130); Calcium 8.9 mg/dL (7.8-10.44); Carbon Dioxide 32 mmol/L (23-31); Chloride 95 mmol/L (98-107); Estimated GFR 65; Globulin 2.2 g/dL (2.4-3.5); Glucose 89 mg/dL (83-110); Potassium 3.3 mmol/L (3.5-5.1); Protein, Total 5.8 g/dL (5.8-8.1); Sodium 136 mmol/L (136-145)
[2023-10-24] MEDS: Famotidine 20 MG TAB PO SCH ×2 (09:01→19:40)
[2023-10-24] MEDS: Enoxaparin 60 MG (0.6 mL) SYRINGE SC SCH ×2 (09:01→19:40)
[2023-10-24] MEDS: Furosemide 40 MG (4 mL) VIAL SLOW IVP SCH ×2 (09:02→16:21)
[2023-10-24] MEDS: Digoxin 0.125 MG TAB PO SCH (09:03)
[2023-10-24] MEDS: Atorvastatin Calcium 40 MG TAB PO SCH (19:40)
[2023-10-25] MEDS: Furosemide 40 MG (4 mL) VIAL SLOW IVP SCH (05:46)
[2023-10-25 06:36] LABS: Hematocrit 44.9 % (36.0-47.0); Hemoglobin 14.3 g/dL (12.0-16.0); Platelet Count 218 10x3/uL (130-400)
[2023-10-25] MEDS: Digoxin 0.125 MG TAB PO SCH (09:21)
[2023-10-25] MEDS: Famotidine 20 MG TAB PO SCH (09:22)
[2023-10-25] MEDS: Enoxaparin 60 MG (0.6 mL) SYRINGE SC SCH (09:24)
[2023-10-25 14:03] LABS: Anion Gap 18 mmol/L (10-20); BUN (Urea Nitrogen) 14 mg/dL (9.8-20.1); Calc. Creatinine Clearance 47 mL/min (70-130); Calcium 9.9 mg/dL (7.8-10.44); Carbon Dioxide 24 mmol/L (23-31); Chloride 96 mmol/L (98-107); Estimated GFR 69; Glucose 105 mg/dL (83-110); Magnesium 1.6 mg/dL (1.6-2.6); Phosphorus 2.6 mg/dL (2.3-4.7); Potassium 4.1 mmol/L (3.5-5.1); Sodium 134 mmol/L (136-145)
[2023-10-25] MEDS: Potassium Bicarbonate/Cit Ac 20 MEQ TAB PO SCH (16:33)
[2023-10-25] MEDS ORDERED: Potassium Chloride 20 MEQ TAB PO SCH (17:00)
[2023-10-25] MEDS ORDERED: Magnesium Sulfate 4 GM in Sodium Chloride 0.9% 250 ML 250 ML IVPB SCH (17:15)
[2023-10-25] MEDS ORDERED: Magnesium Sulfate In Water 4 GM in Premix 1 BAG IVPB SCH (17:30)
[2023-10-25] MEDS: Atorvastatin Calcium 40 MG TAB PO SCH (20:37)
[2023-10-25] MEDS: Polyethylene Glycol 3350 17 GM Packet PO SCH (20:37)
[2023-10-25] MEDS ORDERED: Enoxaparin 40 MG (0.4 mL) SYRINGE SC SCH (21:00)
[2023-10-26 07:28] LABS: #Basophils 0.1 thou/uL (0.0-0.2); #Eosinphils 0.2 thou/uL (0.0-0.7); #Monocytes 0.6 thou/uL (0.11-0.59); #Neutrophils 5.6 thou/uL (1.40-6.50); %Basophils 0.8 % (0.0-1.0); %Eosinophils 2.4 % (0.0-10.0); %Lymphocytes 17.9 % (21.0-51.0); %Monocytes 7.9 % (0.0-10.0); %Neutrophils 70.9 % (42.0-75.0); Hemoglobin 15.6 g/dL (12.0-16.0); Mean Corpuscular HGB CONC 31.8 g/dL (32.0-36.0); Mean Corpuscular Hemoglobin 30.6 pg (27.0-31.0); Mean Corpuscular Volume 96.3 fl (78.0-98.0); Mean Platelet Volume 10.5 fL (7.4-10.4); RBC Distribution Width 14.7 % (11.5-14.5); Red Blood Cell (RBC) Count 5.09 mill/uL (4.20-5.40)
[2023-10-26 07:38] LABS: Platelet Count 189 10x3/uL (130-400)
[2023-10-26 08:54] LABS: ALT (SGPT) 23 U/L (8-55); AST (SGOT) 31 U/L (5-34); Albumin 3.7 g/dL (3.4-4.8); Alkaline Phosphatase 78 U/L (40-110); Anion Gap 12 mmol/L (10-20); BUN (Urea Nitrogen) 15 mg/dL (9.8-20.1); Calc. Creatinine Clearance 50 mL/min (70-130); Calcium 9.2 mg/dL (7.8-10.44); Carbon Dioxide 34 mmol/L (23-31); Chloride 92 mmol/L (98-107); Estimated GFR 73; Globulin 2.6 g/dL (2.4-3.5); Glucose 88 mg/dL (83-110); Phosphorus 2.8 mg/dL (2.3-4.7); Potassium 3.5 mmol/L (3.5-5.1); Protein, Total 6.3 g/dL (5.8-8.1); Sodium 134 mmol/L (136-145)
[2023-10-26 09:00] LABS: Magnesium 2.1 mg/dL (1.6-2.6)
[2023-10-26] MEDS ORDERED: Furosemide 40 MG (4 mL) VIAL SLOW IVP SCH (09:00)
[2023-10-26] MEDS ORDERED: Enoxaparin 30 MG (0.3 mL) SYRINGE SC SCH (09:00)
[2023-10-26] MEDS: Multivitamin W/ Minerals 1 TAB PO SCH (09:23)
[2023-10-26] MEDS: Aspirin 81 mg Enteric Coated Tablet PO SCH (09:23)
[2023-10-26] MEDS: Famotidine 20 MG TAB PO SCH (09:23)
[2023-10-26] MEDS: Digoxin 0.125 MG TAB PO SCH (09:24)
[2023-10-26] MEDS: Potassium Bicarbonate/Cit Ac 20 MEQ TAB PO SCH (09:25)
[2023-10-26] MEDS: Enoxaparin 40 MG (0.4 mL) SYRINGE SC SCH ×2 (09:25→09:34)
[2023-10-26] MEDS: Furosemide 40 MG TAB PO SCH (09:25)
[2023-10-26] MEDS: Potassium Chloride 20 MEQ TAB PO SCH ×2 (13:51→17:03)
[2023-10-26] MEDS ORDERED: Potassium Chloride 20 MEQ TAB PO SCH (17:00)
[2023-10-26] MEDS: Polyethylene Glycol 3350 17 GM Packet PO SCH (21:11)
[2023-10-26] MEDS: Atorvastatin Calcium 40 MG TAB PO SCH (21:11)
[2023-10-26] MEDS: Senokot S 8.6-50 MG TAB PO SCH (21:12)
[2023-10-26] MEDS: Magnesium Oxide 400 MG TAB PO SCH (21:12)
[2023-10-27 04:44] VITALS: BMI 21.9
[2023-10-27] MEDS: Enoxaparin 40 MG (0.4 mL) SYRINGE SC SCH (09:13)
[2023-10-27] MEDS: Potassium Chloride 20 MEQ TAB PO SCH ×2 (09:14→11:36)
[2023-10-27] MEDS: Multivitamin W/ Minerals 1 TAB PO SCH (09:14)
[2023-10-27] MEDS: Digoxin 0.125 MG TAB PO SCH (09:15)
[2023-10-27] MEDS: Furosemide 40 MG TAB PO SCH (09:16)
[2023-10-27] MEDS: Senokot S 8.6-50 MG TAB PO SCH (09:16)
[2023-10-27] MEDS: Aspirin 81 mg Enteric Coated Tablet PO SCH (09:16)
[2023-10-27] MEDS: Famotidine 20 MG TAB PO SCH (09:16)
[2023-10-27] MEDS: Magnesium Oxide 400 MG TAB PO SCH (09:16)
[2023-10-27 09:33] LABS: #Basophils 0.1 thou/uL (0.0-0.2); #Eosinphils 0.1 thou/uL (0.0-0.7); #Monocytes 0.7 thou/uL (0.11-0.59); #Neutrophils 5.9 thou/uL (1.40-6.50); %Basophils 0.9 % (0.0-1.0); %Eosinophils 1.8 % (0.0-10.0); %Lymphocytes 14.1 % (21.0-51.0); %Monocytes 8.4 % (0.0-10.0); %Neutrophils 74.5 % (42.0-75.0); Hematocrit 44.2 % (36.0-47.0); Hemoglobin 14.2 g/dL (12.0-16.0); Mean Corpuscular HGB CONC 32.1 g/dL (32.0-36.0); Mean Corpuscular Hemoglobin 30.6 pg (27.0-31.0); Mean Corpuscular Volume 95.3 fl (78.0-98.0); Platelet Count 215 10x3/uL (130-400); RBC Distribution Width 14.9 % (11.5-14.5); Red Blood Cell (RBC) Count 4.64 mill/uL (4.20-5.40)
[2023-10-27 09:51] LABS: Anion Gap 14 mmol/L (10-20); BUN (Urea Nitrogen) 16 mg/dL (9.8-20.1); Calc. Creatinine Clearance 54 mL/min (70-130); Calcium 9.3 mg/dL (7.8-10.44); Carbon Dioxide 29 mmol/L (23-31); Chloride 96 mmol/L (98-107); Estimated GFR 77; Glucose 84 mg/dL (83-110); Potassium 4.2 mmol/L (3.5-5.1); Sodium 135 mmol/L (136-145)
[2023-10-27] MEDS ORDERED: Polyethylene Glycol 3350 17 GM Packet PO PRN (12:41)
[2023-10-27] MEDS: Atorvastatin Calcium 40 MG TAB PO SCH (20:26)
[2023-10-28 05:31] LABS: #Basophils 0.1 thou/uL (0.0-0.2); #Eosinphils 0.1 thou/uL (0.0-0.7); #Monocytes 0.6 thou/uL (0.11-0.59); #Neutrophils 4.4 thou/uL (1.40-6.50); %Lymphocytes 24.9 % (21.0-51.0); %Monocytes 9.1 % (0.0-10.0); %Neutrophils 62.9 % (42.0-75.0); Hematocrit 41.5 % (36.0-47.0); Hemoglobin 13.6 g/dL (12.0-16.0); Mean Corpuscular HGB CONC 32.8 g/dL (32.0-36.0); Mean Corpuscular Hemoglobin 30.7 pg (27.0-31.0); Mean Corpuscular Volume 93.7 fl (78.0-98.0); Platelet Count 215 10x3/uL (130-400); RBC Distribution Width 14.6 % (11.5-14.5); Red Blood Cell (RBC) Count 4.43 mill/uL (4.20-5.40); White Blood Cell (WBC) Count 6.9 10x3/uL (4.8-10.8)
[2023-10-28 05:54] LABS: Anion Gap 10 mmol/L (10-20); BUN (Urea Nitrogen) 14 mg/dL (9.8-20.1); Calc. Creatinine Clearance 56 mL/min (70-130); Calcium 9.2 mg/dL (7.8-10.44); Carbon Dioxide 29 mmol/L (23-31); Chloride 99 mmol/L (98-107); Estimated GFR 81; Glucose 94 mg/dL (83-110); Potassium 4.2 mmol/L (3.5-5.1); Sodium 134 mmol/L (136-145)
[2023-10-28] MEDS: Furosemide 40 MG TAB PO SCH (08:09)
[2023-10-28] MEDS: Potassium Chloride 20 MEQ TAB PO SCH (08:09)
[2023-10-28] MEDS: Multivitamin W/ Minerals 1 TAB PO SCH (09:55)
[2023-10-28] MEDS: Enoxaparin 40 MG (0.4 mL) SYRINGE SC SCH (09:55)
[2023-10-28] MEDS: Famotidine 20 MG TAB PO SCH (09:55)
[2023-10-28] MEDS: Digoxin 0.125 MG TAB PO SCH (09:55)
[2023-10-28] MEDS: Aspirin 81 mg Enteric Coated Tablet PO SCH (09:55)
[2023-10-28] MEDS: Empagliflozin 10 MG TAB PO SCH (09:56)
[2023-10-28] MEDS: Atorvastatin Calcium 40 MG TAB PO SCH (20:29)
[2023-10-29] MEDS: Multivitamin W/ Minerals 1 TAB PO SCH (09:55)
[2023-10-29] MEDS: Enoxaparin 40 MG (0.4 mL) SYRINGE SC SCH (09:55)
[2023-10-29] MEDS: Famotidine 20 MG TAB PO SCH (09:56)
[2023-10-29] MEDS: Potassium Chloride 20 MEQ TAB PO SCH (09:56)
[2023-10-29] MEDS: Aspirin 81 mg Enteric Coated Tablet PO SCH (09:56)
[2023-10-29] MEDS: Furosemide 40 MG TAB PO SCH (09:56)
[2023-10-29] MEDS: Empagliflozin 10 MG TAB PO SCH (09:56)
[2023-10-29] MEDS ORDERED: Sacubitril 24MG/Valsartan 26 MG TAB PO SCH ×2 (10:00→21:00)
[2023-10-29 11:24] VITALS: BP 97/56; TEMP 97.5
== END 2023-10-29 15:00 | disposition home health service (06) | DRG 280 ==
LOC: ERS 11:33 → OBSVTOIN 15:24 → ERHOLD 15:24 → 2SW 20:17
PROVIDERS: ADMIT Internal Medicine; ATTEND Internal Medicine
DX: I11.0 Hypertensive heart disease with heart failure (principal); I21.A1 Myocardial infarction type 2; I50.43 Acute on chronic combined systolic (congestive) and diastolic (congestive) heart failure; J96.01 Acute respiratory failure with hypoxia; E87.1 Hypo-osmolality and hyponatremia; J44.1 Chronic obstructive pulmonary disease with (acute) exacerbation; I73.9 Peripheral vascular disease, unspecified; F41.9 Anxiety disorder, unspecified; I95.9 Hypotension, unspecified; D63.8 Anemia in other chronic diseases classified elsewhere; I48.0 Paroxysmal atrial fibrillation; E83.42 Hypomagnesemia; E87.6 Hypokalemia; I25.5 Ischemic cardiomyopathy; Z88.0 Allergy status to penicillin; Z79.82 Long term (current) use of aspirin; Z79.899 Other long term (current) drug therapy; Z90.710 Acquired absence of both cervix and uterus; Z90.49 Acquired absence of other specified parts of digestive tract; Z80.9 Family history of malignant neoplasm, unspecified; Z82.49 Family history of ischemic heart disease and other diseases of the circulatory system; Z87.891 Personal history of nicotine dependence
CPT/HCPCS: 36415; 71045; 71275; 76705; 80048; 80053; 81001; 83605; 83690; 83735; 83880; 84100; 84484; 85014; 85018; 85025; 85049; 85379; 87086; 93005; 93306; 93798; 96372; 96374; J1650; J1940; J3475; Q9967

== ENCOUNTER 2023-11-12 01:22 | Emergency (ER) | payer MEDICARE, BC ==
[2023-11-12 01:53] LABS: Hematocrit 47.5 % (36.0-47.0); Hemoglobin 15.6 g/dL (12.0-16.0); Manual Diff?? YES; Mean Corpuscular HGB CONC 32.8 g/dL (32.0-36.0); Mean Corpuscular Hemoglobin 30.4 pg (27.0-31.0); Mean Corpuscular Volume 92.4 fl (78.0-98.0); Mean Platelet Volume 10.3 fL (7.4-10.4); Platelet Count 176 10x3/uL (130-400); RBC Distribution Width 14.5 % (11.5-14.5); Red Blood Cell (RBC) Count 5.14 mill/uL (4.20-5.40); White Blood Cell (WBC) Count 14.5 10x3/uL (4.8-10.8)
[2023-11-12 01:58] LABS: Delete Auto Diff?? YES
[2023-11-12 02:18] LABS: Band 5 % (5-11); CellaVision Operator ID LAB.CLH1; Large Platelets 5.1 % (0-5); Lymphocytes 6 % (21-51); Monocytes 6 % (0-10); Neutrophil 82 % (42-75); Platelet Adequacy Comment Platelets Normal; Polychromasia SLIGHT = 2-3 cells HPF (0-2); Reactive Lymphocytes 1 % (0-10); Total Cell Count 99
[2023-11-12 02:22] LABS: ALT (SGPT) 21 U/L (8-55); AST (SGOT) 32 U/L (5-34); Albumin 4.2 g/dL (3.4-4.8); Alkaline Phosphatase 90 U/L (40-110); Anion Gap 18 mmol/L (10-20); BUN (Urea Nitrogen) 19 mg/dL (9.8-20.1); Bilirubin, Total 0.9 mg/dL (0.2-1.2); Calc. Creatinine Clearance 0 mL/min (70-130); Calcium 9.9 mg/dL (7.8-10.44); Carbon Dioxide 26 mmol/L (23-31); Chloride 96 mmol/L (98-107); Estimated GFR 70; Globulin 3.3 g/dL (2.4-3.5); Glucose 114 mg/dL (83-110); Potassium 4.7 mmol/L (3.5-5.1); Protein, Total 7.5 g/dL (5.8-8.1); Sodium 135 mmol/L (136-145)
[2023-11-12 02:26] LABS: Troponin I 0.127 ng/mL (< 0.028)
[2023-11-12 03:57] LABS: Bacteria/HPF None Seen HPF (None Seen); Bilirubin Negative (Negative); Blood, Urine Negative (Negative); CAUTI Indications for Culture Alt mental st,lethar; Clarity Clear (Clear); Glucose, Urine (Dipstick) Greater than 1000 mg/dL (Negative); Ketone, Urine 20 mg/dL (Negative); Leukocyte Negative Leu/uL (Negative); Nitrite Negative (Negative); Protein, Urine (Dipstick) Negative (Neg-Trace); RBC/HPF 0-3 HPF (0-3); Specific Gravity, Urine 1.025 (1.002-1.036); Squamous Epithelial 0-3 HPF (0-3); Urobilinogen Normal mg/dL (Less than 2); WBC/HPF 0-3 HPF (0-3)
[2023-11-12 04:02] LABS: Urine Culture Reflex No No
[2023-11-12] MEDS ORDERED: Piperacillin/Tazobactam 4.5 GM VIAL ONE (04:25)
[2023-11-12] MEDS ORDERED: Aspirin Chewable 81 MG TAB ONE (04:25)
[2023-11-12] MEDS ORDERED: Sodium Chloride 0.9% 100 ML ONE (04:26)
[2023-11-12] MEDS ORDERED: Iopamidol 370 76% 100 ML VIAL ONE (10:59)
== END 2023-11-12 07:35 | disposition home or self-care (01) ==
LOC: ERS 01:22
DX: I95.9 Hypotension, unspecified (principal); R10.32 Left lower quadrant pain; I11.0 Hypertensive heart disease with heart failure; I50.9 Heart failure, unspecified; I25.2 Old myocardial infarction; I48.91 Unspecified atrial fibrillation; I63.9 Cerebral infarction, unspecified; Z85.41 Personal history of malignant neoplasm of cervix uteri
CPT/HCPCS: 36415; 51701; 71045; 74177; 80053; 81001; 83605; 83735; 84484; 85025; 87040; 93005; 96361; 96365; J2543; J3490; Q9967